=== PATIENT | female | born 1965 | race Caucasian/White ===

== ENCOUNTER 2024-03-02 17:02 | Inpatient (IN) | payer OTHER, SELFPAY ==
[2024-03-02 17:38] LABS: Arterial Blood Carboxyhemoglob 3.6 % (0-1.5); Blood Gas Oxyhemoglobin 88.6 % (94-97); Blood O2 Saturation 93.4 % (92-98.5)
[2024-03-02 17:39] LABS: Blood Gas THB 12.2 g/dl (12-18)
--- NOTE | 2024-03-02 17:42 | ER ---
Nurse's Notes [facility] Name: Ranjana Stallworth Age: 58 yrs Sex: Female : 1965 Arrival Date: 03/02/2024 Time: 17:[address] Private MD: Diagnosis: Tobacco abuse counseling;Tobacco use;COPD/ Chronic obstructive pulmonary disease with (acute) exacerbation;Hypoxemia;Chest pain, unspecified;Acute and chronic respiratory failure with hypercapnia;Pleural effusion, not elsewhere classified-LEFT;Elevated white blood cell count;Hypokalemia Presentation: 03/02 17:10 Chief complaint: Patient states: "I've had SOB for months that got worse today along mb9 with chest pain. My CP gets worse with inspiration". Coronavirus screen: Vaccine status: Patient reports receiving the 2nd dose of the covid vaccine. Ebola Screen: No symptoms or risks identified at this time. Initial Sepsis Screen: Does the patient meet any 2 criteria? No. Patient's initial sepsis screen is negative. Does the patient have a suspected source of infection? No. Patient's initial sepsis screen is negative. Risk Assessment: Do you want to hurt yourself or someone else? Patient reports no desire to harm self or others. Onset of symptoms was March 02, 2024. 17:10 Method Of Arrival: Ambulatory mb9 17:10 Acuity: AMPARO 2 mb9 Triage Assessment: 17:13 General: Appears uncomfortable, ill, Behavior is cooperative. Pain: Complains of pain mb9 in chest. Neuro: Level of Consciousness is awake, alert, obeys commands, Oriented to person, place, time, situation, Appropriate for age. Cardiovascular: Reports chest pain, shortness of breath. Respiratory: Reports shortness of breath at rest on exertion Breath sounds with wheezes bilaterally. Historical: - Allergies: 17:12 No Known Allergies; mb9 - Home Meds: 17:12 Albuterol Inhl [Active]; mb9 - PMHx: 17:12 Chronic obstructive lung disease; mb9 - PSHx: 17:12 None; mb9 - Immunization history:: Adult Immunizations up to date. - Infectious Disease History:: Denies. - Social history:: Smoking status: Patient reports the use of cigarette tobacco products, denies chronic smoking, but will smoke occasionally. - Family history:: not pertinent. Screenin:15 [facility] ED Fall Risk Assessment (Adult) History of falling in the last 3 months, mg7 including since admission No falls in past 3 months (0 pts). 17:15 Abuse screen: Denies threats or abuse. Denies injuries from another. Nutritional mg7 screening: No deficits noted. Tuberculosis screening: No symptoms or risk factors identified. Assessment: 17:49 General: Appears in no apparent distress. comfortable, Reports Symptoms have been going mg7 on for months and became worse today. Pain: Denies pain. Neuro: No deficits noted. Cardiovascular: Reports chest pain, lightheadedness, shortness of breath, Clubbing of nail beds is present Patient's skin is warm and dry. Pulses are all present. Edema is absent. Chest pain. Respiratory: Reports shortness of breath cough that is non-productive, persistent pain with cough Airway is patent Respiratory effort is even, unlabored, Respiratory pattern is regular, symmetrical. GI: No deficits noted. : No deficits noted. EENT: No deficits noted. 18:58 Reassessment: No changes from previously documented assessment. mg7 19:35 Reassessment: Patient appears in no apparent distress at this time. Patient and/or jb4 family updated on plan of care and expected duration. Pain level reassessed. Patient is alert, oriented x 3, equal unlabored respirations, skin warm/dry/pink. 20:00 Reassessment: Pt pending transfer to new room due to code jennings called on 4th floor. jb4 Vital Signs: 17:10 BP 166 / 87; Pulse 108; Resp 24; Temp 98; Pulse Ox 80% on R/A; Weight 90.72 kg; Height mb9 5 ft. 10 in. ; 17:13 Pulse Ox 92% on 2 lpm NC; mb9 17:15 BP 166 / 87; Pulse 103; Resp 20; mg7 18:30 BP 117 / 83; Pulse 80; Resp 16; Pulse Ox 94% on 2 lpm NC; mg7 18:37 BP 101 / 67; Pulse 85; Resp 18; Pulse Ox 94% on 2 lpm NC; ld1 19:35 BP 147 / 74; Pulse 79; Resp 20; Pulse Ox 92% on 2 lpm NC; jb4 17:10 Body Mass Index 28.70 (90.72 kg, 177.8 cm) mb9 ED Course: 17:03 Patient arrived in ED. mg5 17:06 Yg Grimes MD is Attending Physician. keyla 17:12 Triage completed. mb9 17:13 Arm band placed on. mb9 17:13 EKG done, by ED staff, reviewed by Yg Grimes MD. mb9 17:15 Patient has correct armband on for positive identification. Bed in low position. Call mg7 light in reach. Side rails up X 1. Client placed on continuous cardiac and pulse oximetry monitoring. NIBP monitoring applied. traffic monitor specialist on. 17:18 Beatrice Melendez, CONOR is Primary Nurse. mg7 17:40 Umesh Carmen MD is Hospitalizing Provider. [facility] 17:45 Radiology exam delayed due to patient is not appropriately dressed for the exam at this az time. 17:49 SARS RAPID Sent. mg7 17:49 Flu Sent. mg7 17:49 ABG Sent. mg7 17:49 Lactate w/ 2H reflex if indic. Sent. mg7 17:49 Blood Culture Adult (2) Sent. mg7 17:49 Lipase Sent. mg7 18:03 XRAY Chest (1 view) In Process Unspecified. EDMS 18:17 ARTERIAL BLOOD GAS Sent. mg7 Administered Medications: 18:16 Drug: Aspirin PO Chewable Tablet 81 mg PO once Route: PO; mg7 18:30 Drug: NS 0.9% IV 1000 ml IV at 125 ml/hr continuous Route: IV; Rate: 125 ml/hr; Site: mg7 right forearm; 18:30 Drug: MethylPrednisoLONE IVP 125 mg IVP once Route: IVP; Site: right antecubital; mg7 18:46 Drug: Ipratropium Inhalation Aerosol 0.5 mg Inhalation once Route: Inhalation; mg7 18:46 Drug: levofloxacin IVPB 500 mg 100 ml IVPB once over 60 mins Volume: 100 ml; Route: mg7 IVPB; Infused Over: 60 mins; Site: right forearm; 19:08 Not Given (Patient Refused): [id number] mg Sub-Q once mg7 19:21 Drug: Potassium PO Effervescent Tablet 50 mEq PO once; dissolve in 4 ounces of water or jb4 juice Route: PO; 19:43 Drug: Levalbuterol Inhalation 3.75 mg Inhalation once Route: Inhalation; jb4 21:13 Drug: Piperacillin-Tazobactam IVPB 3.375 grams IVPB once over 60 mins; (mix in NS 100 jb4 mL) Route: IVPB; Infused Over: 60 mins; Site: right antecubital; Outcome: 17:42 Decision to Hospitalize by Provider. keyla 21:43 Patient left the ED. jb4 Signatures: Dispatcher [employer] EDYg Sandhu MD MD cha Bryson, James RN RN jb4 Macie Cespedes Lauren RN RN [id number] Juju Griffin RN RN mb9 Pilar Martins5 Beatrice Melendez RN RN mg7
--- NOTE | 2024-03-02 17:42 | EDPHYS ---
Physician Documentation [facility] Name: Ranjana Stallworth Age: 58 yrs Sex: Female : 1965 Arrival Date: 03/02/2024 Time: 17:[address] Private MD: ED Physician Yg Grimes HPI: 03/02 17:35 This 58 yrs old Female presents to ER via Ambulatory with complaints of Chest keyla Pain, Breathing Difficulty. 17:35 The patient or guardian reports chest pain that is located primarily in the substernal keyla area, anterior chest wall. Onset: 3 day(s) ago. Historical: - Allergies: 17:12 No Known Allergies; mb9 - Home Meds: 17:12 Albuterol Inhl [Active]; mb9 - PMHx: 17:12 Chronic obstructive lung disease; mb9 - PSHx: 17:12 None; mb9 - Immunization history:: Adult Immunizations up to date. - Infectious Disease History:: Denies. - Social history:: Smoking status: Patient reports the use of cigarette tobacco products, denies chronic smoking, but will smoke occasionally. - Family history:: not pertinent. ROS: 17:36 Constitutional: Negative for fever, chills, and weight loss, Eyes: Negative for injury, ekyla pain, redness, and discharge, ENT: Negative for injury, pain, and discharge, Neck: Negative for injury, pain, and swelling, Cardiovascular: Negative for chest pain, palpitations, and edema, Abdomen/GI: Negative for abdominal pain, nausea, vomiting, diarrhea, and constipation, Back: Negative for injury and pain, : Negative for injury, bleeding, discharge, and swelling, MS/Extremity: Negative for injury and deformity, Skin: Negative for injury, rash, and discoloration, Neuro: Negative for headache, weakness, numbness, tingling, and seizure, Psych: Negative for depression, anxiety, suicide ideation, homicidal ideation, and hallucinations, Allergy/Immunology: Negative for hives, rash, and allergies, Endocrine: Negative for neck swelling, polydipsia, polyuria, polyphagia, and marked weight changes, Hematologic/Lymphatic: Negative for swollen nodes, abnormal bleeding, and unusual bruising, 17:36 Respiratory: Positive for cough, shortness of breath, wheezing, inspiratory, expiratory, Exam: 17:36 Constitutional: This is a well developed, well nourished patient who is awake, alert, keyla and in no acute distress. Head/Face: Normocephalic, atraumatic. Eyes: Pupils equal round and reactive to light, extra-ocular motions intact. Lids and lashes normal. Conjunctiva and sclera are non-icteric and not injected. Cornea within normal limits. Periorbital areas with no swelling, redness, or edema. ENT: Nares patent. No nasal discharge, no septal abnormalities noted. Tympanic membranes are normal and external auditory canals are clear. Oropharynx with no redness, swelling, or masses, exudates, or evidence of obstruction, uvula midline. Mucous membranes moist. Neck: Trachea midline, no thyromegaly or masses palpated, and no cervical lymphadenopathy. Supple, full range of motion without nuchal rigidity, or vertebral point tenderness. No Meningismus. Chest/axilla: Normal chest wall appearance and motion. Nontender with no deformity. No lesions are appreciated. Cardiovascular: Regular rate and rhythm with a normal S1 and S2. No gallops, murmurs, or rubs. Normal PMI, no JVD. No pulse deficits. Respiratory: Lungs have equal breath sounds bilaterally, clear to auscultation and percussion. No rales, rhonchi or wheezes noted. No increased work of breathing, no retractions or nasal flaring. Abdomen/GI: Soft, non-tender, with normal bowel sounds. No distension or tympany. No guarding or rebound. No evidence of tenderness throughout. Back: No spinal tenderness. No costovertebral tenderness. Full range of motion. Female : Normal external genitalia. Skin: Warm, dry with normal turgor. Normal color with no rashes, no lesions, and no evidence of cellulitis. MS/ Extremity: Pulses equal, no cyanosis. Neurovascular intact. Full, normal range of motion. Neuro: Awake and alert, GCS 15, oriented to person, place, time, and situation. Cranial nerves II-XII grossly intact. Motor strength 5/5 in all extremities. Sensory grossly intact. Cerebellar exam normal. Normal gait. Psych: Awake, alert, with orientation to person, place and time. Behavior, mood, and affect are within normal limits. 17:36 ECG was reviewed by the Attending Physician. Vital Signs: 17:10 BP 166 / 87; Pulse 108; Resp 24; Temp 98; Pulse Ox 80% on R/A; Weight 90.72 kg; Height mb9 5 ft. 10 in. ; 17:13 Pulse Ox 92% on 2 lpm NC; mb9 17:15 BP 166 / 87; Pulse 103; Resp 20; mg7 18:30 BP 117 / 83; Pulse 80; Resp 16; Pulse Ox 94% on 2 lpm NC; mg7 18:37 BP 101 / 67; Pulse 85; Resp 18; Pulse Ox 94% on 2 lpm NC; ld1 19:35 BP 147 / 74; Pulse 79; Resp 20; Pulse Ox 92% on 2 lpm NC; jb4 17:10 Body Mass Index 28.70 (90.72 kg, 177.8 cm) mb9 MDM: 17:06 Patient medically screened. keyla 17:38 Antibiotic administration: Levaquin given. HEART Score: History: Slightly Suspicious keyla (0), ECG: Significant ST-deviation (2), Age: > 45 and < 65 years (1), Risk Factors: > or = 3 Risk factors for atherosclerotic disease (2), [Active Smoker] [+ Family HX] [Obesity] Troponin: < or = 1 x Normal Limit (0). The patient was given aspirin in the Emergency Department. Differential Diagnosis: Obstructed Airway Bronchitis Influenza Upper Respiratory Infection Sinusitis Pharyngitis Asthma Exacerbation Viral Syndrome Pneumonia Tracheal Injury. NEENA Risk Score: TOTAL SCORE = 0. Immunization status: Influenza vaccine: within last 5 years. Data reviewed: vital signs, nurses notes, lab test result(s), EKG, radiologic studies, plain films. Consideration of Admission/Observation Patient was admitted/placed on observation. Escalation of care including admission/observation considered. I considered the following discharge prescriptions or medication management in the emergency department Medications were administered in the Emergency Department. See MAR. Independent interpretation of the following test(s) in the Emergency Department EKG: See my EKG interpretation above. Test considered but Not performed: CT: ct chest. Historians other than the Patient: pt well informed. Care significantly affected by the following chronic conditions: Chronic Obstructive Pulmonary Disease, Obesity. Counseling: I had a detailed discussion with the patient and/or guardian regarding the historical points, exam findings, and any diagnostic results supporting the discharge/admit diagnosis, the presence of at least one elevated blood pressure reading (>120/80) during this emergency department visit, lab results, the need for further work-up and treatment in the hospital. 03/02 17:15 Order name: Basic Metabolic Panel; Complete Time: 18:51 keyla 03/02 17:15 Order name: CBC with Diff; Complete Time: 18:20 keyla 03/02 17:15 Order name: LFT's; Complete Time: 18:51 keyla 03/02 17:15 Order name: Magnesium; Complete Time: 18:51 keyla 03/02 17:15 Order name: NT PRO-BNP; Complete Time: 18:51 keyla 03/02 17:15 Order name: PT-INR; Complete Time: 18:20 keyla 03/02 17:15 Order name: Troponin HS; Complete Time: 18:51 keyla 03/02 17:15 Order name: Blood Culture Adult (2) keyla 03/02 17:15 Order name: Lipase; Complete Time: 18:51 keyla 03/02 17:15 Order name: Urinalysis w/ reflexes keyla 03/02 17:15 Order name: Lactate w/ 2H reflex if indic.; Complete Time: 18:20 keyla 03/02 17:15 Order name: ABG keyla 03/02 17:15 Order name: Flu; Complete Time: 18:51 keyla 03/02 17:15 Order name: SARS RAPID; Complete Time: 18:20 keyla 03/02 17:39 Order name: ABG Arterial Blood Gas; Complete Time: 18:20 EDMS 03/02 18:39 Order name: Urinalysis w/ reflexes EDMS 03/02 18:39 Order name: CBC with Automated Diff EDMS 03/02 18:39 Order name: CBC with Automated Diff EDMS 03/02 18:39 Order name: Comprehensive Metabolic Panel EDMS 03/02 18:39 Order name: Comprehensive Metabolic Panel EDMS 03/02 18:39 Order name: Troponin High Sensitivity EDMS 03/02 18:39 Order name: Troponin High Sensitivity EDMS 03/02 18:39 Order name: Troponin High Sensitivity EDMS 03/02 18:39 Order name: Troponin High Sensitivity EDMS 03/02 17:15 Order name: XRAY Chest (1 view); Complete Time: 18:51 keyla 03/02 17:42 Order name: ARTERIAL BLOOD GAS EDMS 03/02 17:56 Order name: CT Chest For PE Angio keyla 03/02 19:45 Order name: CT; Complete Time: 20:14 EDDE 03/02 17:15 Order name: Cardiac monitoring; Complete Time: 17:19 [facility] 03/02 17:15 Order name: EKG - Nurse/Tech; Complete Time: 17:19 keyla 03/02 17:15 Order name: IV Saline Lock; Complete Time: 17:19 keyla 03/02 17:15 Order name: Labs collected and sent; Complete Time: 17:19 [facility] 03/02 17:15 Order name: O2 Per Protocol; Complete Time: 17:19 [facility] 03/02 17:15 Order name: O2 Sat Monitoring; Complete Time: 17:19 [facility] 03/02 18:53 Order name: PO challenge: JUICE; Complete Time: 19:21 [facility] EC:36 Rate is 90 beats/min. Rhythm is regular. QRS [place] is Normal. [place] interval is normal. QRS keyla interval is normal. QT interval is normal. No Q waves. T waves are Normal. No ST changes noted. Clinical impression: Normal ECG, NSR w/ Non-specific ST/T Changes, and No evidence of ischemia. Interpreted by me. Reviewed by me. Administered Medications: 18:16 Drug: Aspirin PO Chewable Tablet 81 mg PO once Route: PO; mg7 18:30 Drug: NS 0.9% IV 1000 ml IV at 125 ml/hr continuous Route: IV; Rate: 125 ml/hr; Site: mg7 right forearm; 18:30 Drug: MethylPrednisoLONE IVP 125 mg IVP once Route: IVP; Site: right antecubital; mg7 18:46 Drug: Ipratropium Inhalation Aerosol 0.5 mg Inhalation once Route: Inhalation; mg7 18:46 Drug: levofloxacin IVPB 500 mg 100 ml IVPB once over 60 mins Volume: 100 ml; Route: mg7 IVPB; Infused Over: 60 mins; Site: right forearm; 19:08 Not Given (Patient Refused): [id number] mg Sub-Q once mg7 19:21 Drug: Potassium PO Effervescent Tablet 50 mEq PO once; dissolve in 4 ounces of water or jb4 juice Route: PO; 19:43 Drug: Levalbuterol Inhalation 3.75 mg Inhalation once Route: Inhalation; jb4 21:13 Drug: Piperacillin-Tazobactam IVPB 3.375 grams IVPB once over 60 mins; (mix in NS 100 jb4 mL) Route: IVPB; Infused Over: 60 mins; Site: right antecubital; Disposition Summary: 03/02/24 17:42 Hospitalization Ordered Notes: Provider: Umesh Carmen cha Condition: Fair keyla Problem: new keyla Symptoms: have improved keyla Bed/Room Type: Standard keyla Hospitalization Status: Inpatient Admission(03/02/24 17:57) keyla Location: Telemetry/MedSurg (Inpatient)(03/02/24 17:57) keyla Room Assignment: 428(03/02/24 19:00) rv1 Diagnosis - Tobacco abuse counseling keyla - Tobacco use keyla - COPD/ Chronic obstructive pulmonary disease with (acute) exacerbation keyla - Hypoxemia keyla - Chest pain, unspecified keyla - Acute and chronic respiratory failure with hypercapnia keyla - Pleural effusion, not elsewhere classified - LEFT keyla - Elevated white blood cell count keyla - Hypokalemia keyla Forms: - Medication Reconciliation Form keyla - SBAR form keyla - Leadership Thank You Letter keyla Signatures: Dispatcher [employer] EDMS Yg Grimes MD MD cha Bryson, James, RN RN jb4 Kim Tyler RN RN ld1 Juju Griffin, RN RN mb9 Gianna Poole rv1 Beatrice Melendez, RN RN mg7 Corrections: (The following items were deleted from the chart) 17:16 17:16 BASIC METABOLIC PANEL+C.LAB.BRZ ordered. EDMS EDMS 17:16 17:16 CBC+H.LAB.BRZ ordered. EDMS EDMS 17:16 17:16 HEPATIC FUNCTION+C.LAB.BRZ ordered. EDMS EDMS 17:16 17:16 MAGNESIUM+C.LAB.BRZ ordered. EDMS EDMS 17:16 17:16 PROBNP+C.LAB.BRZ ordered. EDMS EDMS 17:16 17:16 PROTIME (+INR)+COAG.LAB.BRZ ordered. EDMS EDMS 17:16 17:16 Troponin High Sensitivity+C.LAB.BRZ ordered. EDMS EDMS 17:16 17:16 BLOOD CULTURE*+BA.LAB.BRZ ordered. EDMS EDMS 17:16 17:16 LIPASE+C.LAB.BRZ ordered. EDMS EDMS 17:16 17:16 Urinalysis+U.LAB.BRZ ordered. EDMS EDMS 17:16 17:16 LACTATE+C.LAB.BRZ ordered. EDMS EDMS 17:16 17:16 Influenza Screen (A \T\ B)+BA.LAB.BRZ ordered. EDMS EDMS 17:16 17:16 SARS-COV-2 Antigen Rapid+I.LAB.BRZ ordered. EDMS EDMS 17:16 17:16 Arterial Blood Gas+RC.LAB.BRZ ordered. EDMS EDMS 17:57 17:42 Observation [facility] 17:57 17:42 Telemetry/MedSurg (observation) [facility] 17:57 17:42 [facility] 19:00 17:57 [facility] rv1
[2024-03-02 17:55] LABS: Absolute Basophils 0.1 K/uL (0-0.5); Absolute Eosinophils 0.1 K/uL (0-0.5); Absolute Lymphocytes (CBC) 1.4 K/uL (0.7-4.9); Absolute Monocytes 1.3 K/uL (0.1-1.3); Absolute Neutrophil 13.7 K/uL (1.8-8.0); Basophils % 0.3 % (0-1.3); Eosinophils % 0.9 % (0-4.4); Hematocrit 35.7 % (36.0-45.0); Hemoglobin 11.9 g/dL (12.0-15.0); Lymphocytes % 8.2 % (15.3-44.8); MCH 28.9 pg (27.0-35.0); MCHC 33.3 g/dL (32.0-36.0); MCV 86.9 fL (80-100); Neutrophils % 82.6 % (41.7-73.7); Platelets 685 thou/uL (152-406); RBC Red Blood Cell Count 4.11 M/uL (3.86-4.86); Red Cell Distribution Width 13.5 % (12.1-15.2)
[2024-03-02 17:58] LABS: PT Prothrombin Time 13.6 SECONDS (9.5-12.5); Protime INR 1.24
[2024-03-02] MEDS ORDERED: IPRATROPIUM BROM 0.5MG/2.5ML ONE (18:09)
[2024-03-02 18:10] LABS: SARS-CoV-2 Antigen CONTROL BLUE LINE VIS/BG OK; SARS-CoV-2 Antigen Rapid Res Negative (Negative)
[2024-03-02] MEDS ORDERED: METHYLPREDNISOLONE 125 MG INJ ONE (18:10)
[2024-03-02] MEDS ORDERED: ASPIRIN 81 MG CHEWABLE TABLET ONE (18:10)
[2024-03-02] MEDS ORDERED: Levofloxacin500mg IV 500 MG/100 ML BAG IV ONE (18:10)
[2024-03-02] MEDS ORDERED: NA CHLORIDE 0.9% 1,000 ML ONE (18:11)
[2024-03-02] MEDS ORDERED: ENOXAPARIN 40 MG/0.4 ML SQ ONE (18:11)
--- NOTE | 2024-03-02 18:16 | P.HP ---
Certification for Inpatient Patient admitted to: Observation With expected LOS: <2 Midnights Practitioner: I am a practitioner with admitting privileges, knowledge of patient current condition, hospital course, and medical plan of care. Services: Services provided to patient in accordance with Admission requirements found in Title 42 Section 412.3 of the Code of Federal Regulations Patient History Date of Service: 03/02/24 Reason for admission: Chest Pain, shortness of breath History of Present Illness: 58 yo female with past medical history of COPD who was brought to ER with shortness of breath which has been worsening over the last few days . Today shortness of breath increased to the extent that getting short winded even with minimal exertion and was brought to ER. Denies any fever or chills. Denies any nausea vomiting or Diarrhea. Patient complains of chest discomfort denies any pain. Complains of tightness in the chest nonradiating, not associated with lan phoresis. No sick contacts Patient was assessed in the ER and was admitted for further management of COPD exacerbation and chest discomfort Home medications list reviewed: Yes - Past Medical/Surgical History Past Medical History: Reviewed- Non-Contributory -: COPD Past Surgical History: Reviewed- Non-Contributory - Family History Family History: Reviewed- Non-Contributory - Social History Smoking Status: Current some day smoker Review of Systems 10-point ROS is otherwise unremarkable Physical Examination - Vital Signs Temperature: 98.4 F Blood Pressure: 132/76 Pulse: 78 Respirations: 18 Pulse Ox (%): 94 - Physical Exam General: Alert, Oriented x3, Cooperative, Mild distress HEENT: Atraumatic, Normocephalic, PERRLA Neck: Supple Respiratory: Diminished, Crackles/rales, Expiratory wheezes Cardiovascular: No edema, Regular rate/rhythm, Normal S1 S2 Capillary refill: <2 Seconds Gastrointestinal: Soft and benign, Non-distended, W/out hepatosplenomegaly Musculoskeletal: No clubbing, No swelling Integumentary: No rashes, No breakdown Neurological: Normal speech, Normal strength at 5/5 x4 extr, Cranial nerves 3-12 intact, Normal reflexes 2+, Normal affect Lymphatics: No axilla or inguinal lymphadenopathy - Studies Laboratory Data (last 24 hrs) 03/02/24 03/02/24 17:15 17:15 WBC 16.60 H Hgb 11.9 L Hct 35.7 L Plt Count 685 H PT 13.6 H INR 1.24 Assessment and Plan - Problems (Diagnosis) (1) COPD exacerbation Current Visit: Yes Status: Acute Plan: COPD exacerbation Monitor closely on telemetry Started on bronchodilators Oxygen supplementation Steroids added ABG findings noted Chest x-ray findings noted Pulmonology consult if not better in the a.m. (2) Acute respiratory failure with hypoxia and hypercapnia Current Visit: Yes Status: Acute Plan: Oxygen supplementation Will try to wean down oxygen requirement Started on bronchodilators and steroids (3) Bronchitis Current Visit: Yes Status: Acute Plan: Started on antibiotics empirically Will obtain cultures Change antibiotic as per sensitivity (4) Chest pain Current Visit: Yes Status: Acute Plan: Monitor closely on telemetry Trend cardiac enzymes Started on aspirin and statin Cardiology consult if cardiac enzymes are positive (5) Hypokalemia Current Visit: Yes Status: Acute Plan: Will replace potassium Monitor under telemetry Electrolytes monitor and replace accordingly Discharge Plan: Home Plan to discharge in: 48 Hours - Advance Directives Does patient have a Living Will: No Does patient have a Durable POA for Healthcare: No - Code Status/Comfort Care Code Status: Full Code Time Spent Managing Pts Care (In Minutes): 58
[2024-03-02 18:20] LABS: AST/SGOT 8 U/L (15-37); Albumin 2.6 g/dL (3.4-5.0); Albumin/Globulin Ratio 0.5 (1.1-1.8); Alkaline Phosphatase 103 U/L (45-117); Anion Gap 6.9 mEq/L (5.0-15.0); BUN Blood Urea Nitrogen 10 mg/dL (7-18); Bicarbonate 32 mEq/L (21-32); Bilirubin Direct 0.1 mg/dL (0-0.2); Bilirubin Indirect, Calculated 0.2 mg/dL (0.2-0.8); Bilirubin Total 0.3 mg/dL (0.2-1.0); Globulin 5.3 g/dL (2.3-3.5); Glomerular Filtration Rate 104 ml/min (=/>90); Glucose Level 118 mg/dL (74-106); Lipase 10 U/L (13-75); Magnesium 2.1 mg/dL (1.6-2.4); NT PRO-BNP 126 pg/mL (<125); Potassium 2.9 mEq/L (3.5-5.1); Protein, Total 7.9 g/dL (6.4-8.2); Sodium Level 136 mEq/L (136-145); Troponin High Sensitivity 3.3 pg/mL (<58.9)
[2024-03-02 18:23] LABS: ALT/SGPT < 10 U/L (13-56)
--- NOTE | 2024-03-02 18:31 | RAD REPORT ---
EXAM DESCRIPTION: Stephanie Single View03/02/2024 6:01 pm CLINICAL HISTORY: ABDOMINAL DISTENTION COMPARISON: No comparisons TECHNIQUE: Portable AP view of the chest. FINDINGS: Moderate to large layering left pleural effusion with underlying airspace opacification. R ight lung is clear. No pneumothorax. The cardiomediastinal contours are unremarkable. IMPRESSION: Left layering pleural effusion with underlying atelectasis versus pneumonia.
[2024-03-02] MEDS ORDERED: ACETAMINOPHEN 500 MG TAB PO PRN (18:34)
[2024-03-02] MEDS ORDERED: ALBUTEROL 2.5 MG/3 ML NEB SOL NEB PRN (18:34)
[2024-03-02] MEDS ORDERED: ONDANSETRON 4 MG/2 ML VIAL IV PRN (18:34)
[2024-03-02] MEDS: IPRATROPIUM BROM 0.5MG/2.5ML NEB SCH (19:00)
[2024-03-02] MEDS ORDERED: POTASSIUM 25 MEQ EFFERV TAB ONE (19:14)
[2024-03-02] MEDS ORDERED: LEVALBUTEROL 1.25 MG/3 ML NEB ONE (19:39)
--- NOTE | 2024-03-02 19:44 | RAD REPORT ---
EXAM DESCRIPTION: CT - Chest For Pe Angio - 03/02/2024 7:12 pm CLINICAL HISTORY: Chest pain;Dyspnea COMPARISON: Chest radiograph of the same day TECHNIQUE: Thin axial CT images of the chest were obtained following administration of 100 mL Isovue 370 IV contrast. Multiplanar reconstructions, and maximum intensity projection reconstructions were generated and reviewed. Exam utilizes a protocol for optimal evaluation of pulmonary arterial tree. All CT scans are performed using dose optimization technique as appropriate and may include automated exposure control or mA/KV adjustment according to patient size. FINDINGS: Pulmonary arteries are normal. No emboli or other suspicious finding. No acute or signific ant aorta findings. Moderate layering left pleural effusion. Opacification of the left main bronchus with some 8 segments to the upper segments of the left upper lobe. The left lower lobe is completely opacified, without s ignificant volume loss, with opacification of its leading bronchial tree. The parenchyma throughout t he left lower lobe is hypoenhancing with limited air bronchogram, with the exception of a patchy area of relative hyperenhancement at the base anteriorly. No pleural effusion or airspace opacities on th e right. No pneumothorax. No abnormal mediastinal or hilar masses or lymphadenopathy seen. No chest wall mass or abnormal axill iary lymphadenopathy. Left adrenal 3.3 cm mass, with internal density less than 10 Hounsfield units, favoring a benign zacarias cash, not well characterized. IMPRESSION: No evidence of acute central pulmonary emboli. Airspace opacification of the left lower lobe and lower segments of the left upper lobe, with opacifi cation of the leading bronchitis. Findings favor an infectious or inflammatory process such as pneumo martinez, although an obstructing endobronchial is not excluded. Moderate layering left pleural effusion.
[2024-03-02] MEDS ORDERED: NA CHLORIDE 0.9% 100 ML ONE (20:34)
[2024-03-02] MEDS ORDERED: PIPERACIL/TAZO 3.375 GM VIAL IV ONE (20:35)
[2024-03-02] MEDS: ENOXAPARIN 40 MG/0.4 ML SQ SCH (21:00)
[2024-03-02] MEDS: ATORVASTATIN 40 MG TAB PO SCH (21:00)
[2024-03-02 22:39] LABS: Urine Bacteria None Seen /HPF (<20); Urine Bilirubin NEGATIVE (Negative); Urine Blood Negative (Negative); Urine Clarity Clear (Clear); Urine Color Light-Yellow (Yellow); Urine Culture Reflex Order NOT NEEDED; Urine Glucose NEGATIVE (Negative); Urine Ketones NEGATIVE (Negative); Urine Microscopic Reflex YN ORDER UMIC; Urine Mucus Slight /HPF (None Seen); Urine Nitrite NEGATIVE (Negative); Urine Protein TRACE (Negative); Urine RBC <5 /HPF (None Seen); Urine Urobilinogen Normal (Normal); Urine WBC <5 /HPF (<5); Urine pH 6.5 (5.0-7.0)
[2024-03-02 22:40] LABS: Specific Gravity > 1.030 (1.005-1.030)
[2024-03-02 23:12] VITALS: BMI 34.7
[2024-03-03] MEDS: METHYLPREDNISOLONE 40 MG INJ IV SCH (01:35)
[2024-03-03] MEDS: IBUPROFEN 400 MG TAB PO ONE (01:35)
[2024-03-03 04:45] LABS: Absolute Basophils 0.1 K/uL (0-0.5); Absolute Lymphocytes (CBC) 0.4 K/uL (0.7-4.9); Absolute Monocytes 0.1 K/uL (0.1-1.3); Absolute Neutrophil 12.6 K/uL (1.8-8.0); Basophils % 0.9 % (0-1.3); Hematocrit 34.5 % (36.0-45.0); Hemoglobin 10.9 g/dL (12.0-15.0); MCH 27.8 pg (27.0-35.0); MCHC 31.6 g/dL (32.0-36.0); MCV 88.1 fL (80-100); MPV 8.3 fL (7.6-11.3); Monocytes % 0.9 % (3.3-12.3); Neutrophils % 95.2 % (41.7-73.7); Platelets 666 thou/uL (152-406); RBC Red Blood Cell Count 3.92 M/uL (3.86-4.86); Red Cell Distribution Width 13.6 % (12.1-15.2)
[2024-03-03 05:14] LABS: Albumin 2.4 g/dL (3.4-5.0); Albumin/Globulin Ratio 0.5 (1.1-1.8); Anion Gap 7.9 mEq/L (5.0-15.0); Bilirubin Total 0.3 mg/dL (0.2-1.0); Globulin 5.1 g/dL (2.3-3.5); Potassium 3.9 mEq/L (3.5-5.1); Protein, Total 7.5 g/dL (6.4-8.2)
[2024-03-03 05:20] LABS: Band Neutrophils 6 % (0-1); Blood Morphology Comment NOT SEEN (NOT SEEN); Differential Total Cells Count 100; Monocytes 1 % (0-10); Platelet Estimate ADEQ; Reactive Lymphocytes 2 %; Segmented Neutrophils 90 % (40-80)
[2024-03-03 05:31] LABS: Lymphocytes 0 % (15-42)
--- NOTE | 2024-03-03 07:47 | P.PN ---
Subjective Date of Service: 03/04/24 Chief Complaint: Chest Pain, shortness of breath Admitted for COPD exacerbation, reports productive cough, shortness of breath worse with exertion, no reported fever - Physical Exam General: Alert, Oriented x3, Cooperative, Mild distress HEENT: Atraumatic, Normocephalic, PERRLA Neck: Supple Respiratory: Diminished, Crackles/rales, Expiratory wheezes Cardiovascular: No edema, Regular rate/rhythm, Normal S1 S2 Capillary refill: <2 Seconds Gastrointestinal: Soft and benign, Non-distended, W/out hepatosplenomegaly Musculoskeletal: No clubbing, No swelling Integumentary: No rashes, No breakdown Neurological: Normal speech, Normal strength at 5/5 x4 extr, Cranial nerves 3-12 intact, Normal reflexes 2+, Normal affect <Corin Chino - Last Filed: 03/04/24 08:59> Date of Service: 03/03/24 <Lio Barnett - Last Filed: 03/06/24 09:31> Review of Systems Per HPI <Corin Chino - Last Filed: 03/04/24 08:59> Physical Examination - Vital Signs Temperature: 97.2 F Blood Pressure: 116/75 Pulse: 71 Respirations: 20 Pulse Ox (%): 91 - Studies Laboratory Data (last 24 hrs) 03/02/24 03/02/24 03/02/24 17:15 17:15 17:15 WBC 16.60 H Hgb 11.9 L Hct 35.7 L Plt Count 685 H PT 13.6 H INR 1.24 Sodium 136 Potassium 2.9 L BUN 10 Creatinine 0.56 Glucose 118 H Magnesium 2.1 Total Bilirubin 0.3 AST 8 L ALT < 10 L Alkaline Phosphatase 103 Lipase 10 L Microbiology Data (last 24 hrs): 03/02/24 17:26 Nasopharnyx Influenza Type A Antigen Screen - Final 03/02/24 17:26 Nasopharnyx Influenza Type B Antigen Screen - Final <Corin Chino - Last Filed: 03/04/24 08:59> Assessment And Plan - Plan Assessment and Plan (1) COPD exacerbation Leukocytosis secondary to steroid use improving Current Visit: Yes Status: Acute COPD exacerbation Monitor closely on telemetry Started on bronchodilators Oxygen supplementation Steroids added ABG findings noted Chest x-ray findings noted Pulmonology consult if not better in the a.m. Trend WBC 16.6, 13.20 (2) Acute respiratory failure with hypoxia and hypercapnia Current Visit: Yes Status: Acute Oxygen supplementation Will try to wean down oxygen requirement Started on bronchodilators and steroids, IV azithromycin, ceftriaxone (3) Bronchitis Current Visit: Yes Status: Acute Started on antibiotics empirically Will obtain cultures Change antibiotic as per sensitivity (4) Chest pain Current Visit: Yes Status: Acute Monitor closely on telemetry Trend cardiac enzymes Started on aspirin and statin Cardiology consult if cardiac enzymes are positive (5) Hypokalemia Current Visit: Yes Status: Acute 2.9 repeat 3.9 Will replace potassium Monitor under telemetry Electrolytes monitor and replace accordingly Full code Diet cardiac DVT Lovenox Disposition Discharge Plan: Home - Code Status/Comfort Care Code Status: Full Code Critical Care: No Time Spent Managing PTS Care (In Minutes): 35 <Corin Chino - Last Filed: 03/04/24 08:59> Date of Service: 03/03/24 Patient chart was reviewed and patient was seen and examined. Agree with the a ssessment and plan. Most of the MDM was done by myself and plan of care was discussed with ASHLEY as well as the patient. Plan to discharge home with DC planning for 24-48hrs as long as patient continues to improve. <Lio Barnett - Last Filed: 03/06/24 09:31>
[2024-03-03] MEDS: POTASSIUM CL SA 10 MEQ TAB PO ONE (08:54)
[2024-03-03] MEDS: CEFTRIAXONE 1,000 MG in NA CHLORIDE 0.9% 50 ML IVPB SCH (08:54)
[2024-03-03] MEDS: ASPIRIN EC 81 MG TAB PO SCH (08:54)
[2024-03-03] MEDS: AZITHROMYCIN IV 500 MG in NA CHLORIDE 0.9% 250 ML IVPB SCH (08:57)
[2024-03-03] MEDS: IBUPROFEN 400 MG TAB PO PRN (10:38)
--- NOTE | 2024-03-03 15:40 | EKG ---
Test Date: 2024-03-02 Test Time: 17:11:20 Manual Winder: ALP MEASUREMENT RESULTS: Intervals: Rate: 90 TX: 152 QRSD: 84 QT: 350 QTc: 428 [place]: P: 51 TX: 152 QRS: 25 T: 50 INTERPRETIVE STATEMENTS: Normal sinus rhythm Low voltage QRS Borderline ECG No previous ECG available for comparison Electronically Signed On 03-03-24 15:39:16 CDT by Richie Bentley
[2024-03-04 07:35] LABS: Anion Gap 6.7 mEq/L (5.0-15.0); Potassium 4.7 mEq/L (3.5-5.1)
--- NOTE | 2024-03-04 09:03 | P.DS ---
Admission Date: 03/03/24 Discharge Date: 03/05/24 Reason for Admission: Chest Pain, shortness of breath Brief History of Present Illness: 58 yo female with past medical history of COPD who was brought to ER with shortness of breath which has been worsening over the last few days . Today shortness of breath increased to the extent that getting short winded even with minimal exertion and was brought to ER. Denies any fever or chills. Denies any nausea vomiting or Diarrhea. Patient complains of chest discomfort denies any pain. Complains of tightness in the chest nonradiating, not associated with diaphoresis. No sick contacts, Patient was assessed in the ER and was admitted for further management of COPD exacerbation and chest discomfort - Physical Exam General: Alert, Oriented x3, Cooperative, Mild distress HEENT: Atraumatic, Normocephalic, PERRLA Neck: Supple Respiratory: Productive cough, equal unlabored respiratory Cardiovascular: No edema, Regular rate/rhythm, Normal S1 S2 Capillary refill: <2 Seconds Gastrointestinal: Soft and benign, Non-distended, W/out hepatosplenomegaly Musculoskeletal: No clubbing, No swelling Integumentary: No rashes, No breakdown Neurological: Normal speech, Normal strength at 5/5 x4 extr, Cranial nerves 3-12 intact, Normal reflexes 2+, Normal affect Lymphatics: No axilla or inguinal lymphadenopathy Hospital Course: 58 year-old female patient presented with shortness of breath was noted to have COPD exacerbation. Condition improved with steroids, nebulizers, IV antibiotics. Patient tolerating diet, stable for discharge to home with follow-up appointment with primary care physician. Follow-up with pulmonary after discharge PROBLEM: COPD exacerbation improved with nebulizer steroids, Bronchitis, Home O2 ordered follow-up with pulmonary after discharge Refill inhalers,, discharged home on p.o. steroids, antibiotics. Follow-up with pulmonary after Continue home medicines as previously prescribed GOAL: Clear understanding of disease process INSTRUCTIONS: Physician Discharge Instructions: -DC IV and DC home -Follow-up with PCP in 1 to 2 weeks -Please call Dr. Barnett at [phone] if any questions regarding hospital stay -Please call nursing station at [phone] if any nursing or medication questions -Return to the emergency room if symptoms worsen Diet: ADA, low sodium Activity: Fall precautions <Corin Chino - Last Filed: 03/05/24 07:59> Admission Date: 03/03/24 Discharge Date: 03/05/24 Hospital Course: Patient has done well during hospital stay. Patient's clinical symptoms have improved. Patient will continue with medical therapy as an outpatient. Patient will follow-up with consultants and PCP as an outpatient in 1 to 2 weeks. Patient chart was reviewed and patient was seen and examined. ASHLEY DC assessment and plan has been reviewed. Patient presented with acute COPD exacerbation. Most of the MDM was done by myself and plan of care was discussed with ASHLEY as well as the patient. Plan to discharge home with outpatient follow-up <Lio Barnett - Last Filed: 03/06/24 09:34> Disposition: ROUTINE DISCHARGE Discharge Condition: GOOD Vital Signs/Physical Exam: Temp Pulse Resp BP Pulse Ox 97.2 F 71 20 116/75 91 03/04/24 08:59 03/04/24 08:59 03/04/24 08:59 03/04/24 08:59 03/04/24 08:59 Laboratory Data at Discharge: WBC 13.20 thou/uL (4.3-10.9) H 03/03/24 04:13 Hgb 10.9 g/dL (12.0-15.0) L D 03/03/24 04:13 Hct 34.5 % (36.0-45.0) L 03/03/24 04:13 Plt Count 666 thou/uL (152-406) H 03/03/24 04:13 PT 13.6 SECONDS (9.5-12.5) H 03/02/24 17:15 INR 1.24 03/02/24 17:15 Sodium 139 mEq/L (136-145) 03/04/24 06:58 Potassium 4.7 mEq/L (3.5-5.1) D 03/04/24 06:58 BUN 22 mg/dL (7-18) H 03/04/24 06:58 Creatinine 0.52 mg/dL (0.55-1.02) L 03/04/24 06:58 Glucose 169 mg/dL (74-106) H 03/04/24 06:58 Magnesium 2.1 mg/dL (1.6-2.4) 03/02/24 17:15 Total Bilirubin 0.3 mg/dL (0.2-1.0) 03/03/24 04:13 AST 6 U/L (15-37) L 03/03/24 04:13 ALT 13 U/L (13-56) 03/03/24 04:13 Alkaline Phosphatase 100 U/L (45-117) 03/03/24 04:13 Lipase 10 U/L (13-75) L 03/02/24 17:15 <Corin Chino - Last Filed: 03/05/24 07:59> Vital Signs/Physical Exam: Temp Pulse Resp BP Pulse Ox 97.9 F 60 16 146/71 H 93 03/05/24 12:00 03/05/24 12:00 03/05/24 12:00 03/05/24 12:00 03/05/24 12:00 Laboratory Data at Discharge: WBC 13.20 thou/uL (4.3-10.9) H 03/03/24 04:13 Hgb 10.9 g/dL (12.0-15.0) L D 03/03/24 04:13 Hct 34.5 % (36.0-45.0) L 03/03/24 04:13 Plt Count 666 thou/uL (152-406) H 03/03/24 04:13 PT 13.6 SECONDS (9.5-12.5) H 03/02/24 17:15 INR 1.24 03/02/24 17:15 Sodium 139 mEq/L (136-145) 03/04/24 06:58 Potassium 4.7 mEq/L (3.5-5.1) D 03/04/24 06:58 BUN 22 mg/dL (7-18) H 03/04/24 06:58 Creatinine 0.52 mg/dL (0.55-1.02) L 03/04/24 06:58 Glucose 169 mg/dL (74-106) H 03/04/24 06:58 Magnesium 2.1 mg/dL (1.6-2.4) 03/02/24 17:15 Total Bilirubin 0.3 mg/dL (0.2-1.0) 03/03/24 04:13 AST 6 U/L (15-37) L 03/03/24 04:13 ALT 13 U/L (13-56) 03/03/24 04:13 Alkaline Phosphatase 100 U/L (45-117) 03/03/24 04:13 Lipase 10 U/L (13-75) L 03/02/24 17:15 <Lio Barnett - Last Filed: 03/06/24 09:34> Diet: AHA Time spent managing pt's care (in minutes): 55 <Corin Chino - Last Filed: 03/05/24 07:59> <Lio Barnett - Last Filed: 03/06/24 09:34> Home Medications: Albuterol Sulfate [Albuterol Sulfate Hfa] 2 puff IH Q6H PRN 03/02/24 Azithromycin 500 mg PO DAILY 4 Days #4 mg 03/04/24 Cetirizine HCl/Pseudoephedrine [Zyrtec-D Tablet] 1 each PO DAILY 30 Days #30 tab 03/04/24 Methylprednisolone [Medrol dosepack] 4 mg PO DIRECTED 5 Days #1 jonna 03/04/24 Mometasone/Formoterol [Dulera 200 Mcg-5 Mcg Inhaler] 8.8 gm IH BID #1 inh 0 03/04/24 Albuterol Inhaler [Ventolin Inhaler*] 2 puff IH Q4H PRN 30 Days #1 inh 03/05/24 Albuterol Sulfate [Albuterol Sulfate 0.083% Neb Soln] 2.5 mg IH Q4H PRN 30 Days #1 box 03/05/24 Hydrocodone 5/APAP 325 [[place] 5/325] 1 tab PO Q6H PRN #20 tab 03/05/24 Ibuprofen 800 mg PO Q8H PRN 30 Days #30 mg 03/05/24 Ipratropium Neb [Atrovent*] 0.5 mg IH Q4H PRN 30 Days #1 box 03/05/24 Pantoprazole [Protonix Tab] 40 mg PO DAILY #30 tab 03/05/24 New Medications: Albuterol Sulfate [Albuterol Sulfate 0.083% Neb Soln] 2.5 mg IH Q4H PRN 30 Days #1 box PRN Reason: Shortness Of Breath Ipratropium Neb [Atrovent*] 0.5 mg IH Q4H PRN 30 Days #1 box PRN Reason: Shortness Of Breath Azithromycin 500 mg PO DAILY 4 Days #4 mg Mometasone/Formoterol [Dulera 200 Mcg-5 Mcg Inhaler] 8.8 gm IH BID #1 inh Ibuprofen 800 mg PO Q8H PRN 30 Days #30 mg PRN Reason: Pain Scale 5-7 (Moderate) Methylprednisolone [Medrol dosepack] 4 mg PO DIRECTED 5 Days #1 jonna Hydrocodone 5/APAP 325 [[place] 5/325] 1 tab PO Q6H PRN #20 tab PRN Reason: Pain Pantoprazole [Protonix Tab] 40 mg PO DAILY #30 tab Albuterol Inhaler [Ventolin Inhaler*] 2 puff IH Q4H PRN 30 Days #1 inh PRN Reason: Shortness Of Breath Cetirizine HCl/Pseudoephedrine [Zyrtec-D Tablet] 1 each PO DAILY 30 Days #30 tab Physician Discharge Instructions: 58 year-old female patient presented with shortness of breath was noted to have COPD exacerbation. Condition improved with steroids, nebulizers, IV antibiotics. Patient tolerating diet, stable for discharge to home with follow-up appointment with primary care physician. Follow-up with pulmonary after discharge PROBLEM: COPD exacerbation improved with nebulizer steroids, Bronchitis, Tobacco use Refill inhalers,, discharged home on p.o. steroids, antibiotics. Follow-up with pulmonary after Prescription for albuterol Atrovent nebulizer Inhaled corticosteroid twice daily twice daily Albuterol inhaler Steroid Dosepak Azithromycin daily for 4 days Educated on tobacco cessation Discharge home with home O2 follow-up with primary care physician Continue home medicines as previously prescribed GOAL: Clear understanding of disease process INSTRUCTIONS: Physician Discharge Instructions: -DC IV and DC home -Follow-up with PCP in 1 to 2 weeks -Please call Dr. Barnett at [phone] if any questions regarding hospital stay -Please call nursing station at [phone] if any nursing or medication questions -Return to the emergency room if symptoms worsen Diet: ADA, low sodium Activity: Fall precautions Followup: Marquise Santos MD [ACTIVE - CAN ADMIT] - OOT,OOT [UNKNOWN] -
--- NOTE | 2024-03-04 16:37 | P.PN ---
Subjective Date of Service: 03/04/24 Chief Complaint: Chest Pain, shortness of breath Admitted for COPD exacerbation, reports productive cough, shortness of breath worse with exertion, no reported fever , O2 ordered, - Physical Exam General: Alert, Oriented x3, Cooperative, HEENT: Atraumatic, Normocephalic, PERRLA Neck: Supple Respiratory: Diminished,, equal unlabored Cardiovascular: No edema, Regular rate/rhythm, Normal S1 S2 Capillary refill: <2 Seconds Gastrointestinal: Soft and benign, Non-distended, W/out hepatosplenomegaly Musculoskeletal: No clubbing, No swelling Integumentary: No rashes, No breakdown Neurological: Normal speech, Normal strength at 5/5 x4 extr, Cranial nerves 3-12 intact, Normal reflexes 2+, Normal affect <Corin Chino - Last Filed: 03/04/24 16:38> Date of Service: 03/04/24 <Lio Barnett - Last Filed: 03/06/24 09:32> Review of Systems per HPI <Corin Chino - Last Filed: 03/04/24 16:38> Physical Examination - Vital Signs Temperature: 98.0 F Blood Pressure: 136/74 Pulse: 59 Respirations: 20 Pulse Ox (%): 92 <Corin Chino - Last Filed: 03/04/24 16:38> Assessment And Plan - Plan Assessment and Plan (1) COPD exacerbation Leukocytosis secondary to steroid use improving Current Visit: Yes Status: Acute COPD exacerbation Monitor closely on telemetry Started on bronchodilators Oxygen supplementation Steroids added ABG findings noted Chest x-ray findings noted Pulmonology consult if not better in the a.m. Trend WBC 16.6, 13.20 (2) Acute respiratory failure with hypoxia and hypercapnia Current Visit: Yes Status: Acute Oxygen supplementation Will try to wean down oxygen requirement Started on bronchodilators and steroids, IV azithromycin, ceftriaxone Home O2 ordered (3) Bronchitis Current Visit: Yes Status: Acute Started on antibiotics empirically Will obtain cultures Change antibiotic as per sensitivity (4) Chest pain Current Visit: Yes Status: Acute Monitor closely on telemetry Trend cardiac enzymes Started on aspirin and statin Cardiology consult if cardiac enzymes are positive (5) Hypokalemia Current Visit: Yes Status: Acute 2.9 repeat 3.9 Will replace potassium Monitor under telemetry Electrolytes monitor and replace accordingly Full code Diet cardiac DVT Lovenox Disposition Discharge Plan: Home - Code Status/Comfort Care Code Status: Full Code Critical Care: No Time Spent Managing PTS Care (In Minutes): 35 <Corin Chino - Last Filed: 03/04/24 16:38> Date of Service: 03/04/24 Agree with plan of care as mentioned above. Patient has done well during hospital stay. Patient's clinical symptoms have improved. Patient will continue with medical therapy as an outpatient. Agree with the assessment and plan. Most of the MDM was done by myself and plan of care was discussed with ASHLEY as well as the patient. Plan to discharge home with DC planning in a.m. as long as patient continues to improve. <Lio Barnett - Last Filed: 03/06/24 09:32>
[2024-03-05 08:50] VITALS: O2SAT 94
[2024-03-05 12:56] VITALS: BP 146/71; TEMP 97.9
--- NOTE | 2024-03-07 08:53 | ECHO ---
HEIGHT: 5 ft 4 in WEIGHT: 202 lb 1.6 oz DATE OF STUDY: 03/04/[address]: Lio Barnett MD 2-DIMENSIONAL: YES M.MODE: YES DOPPLER: YES COLOR FLOW: YES TDS: PORTABLE: YES DEFINITY: BUBBLE STUDY: DIAGNOSIS: CONGESTIVE HEART FAILURE CARDIAC HISTORY: CATHERIZATION: SURGERY: PROSTHETIC VALVE: PACEMAKER: MEASUREMENTS (cm) DIASTOLIC (NORMALS) SYSTOLIC (NORMALS) IVSd 0.8 (0.6-1.2) LA Diam 4.4 (1.9-4.0) LVEF 79% LVIDd 4.6 (3.5-5.7) LVIDs 2.4 (2.0-3.5) %FS 48% LVPWd 1.0 (0.6-1.2) Ao Diam 2.7 (2.0-3.7) 2 DIMENSIONAL ASSESSMENT: RIGHT ATRIUM: NORMAL LEFT ATRIUM: ENLARGED RIGHT VENTRICLE: NORMAL LEFT VENTRICLE: NORMAL TRICUSPID VALVE: MILD TRICUSPID REGURGITATION MITRAL VALVE: MILD MITRAL REGURGITATION PULMONIC VALVE: MILD PULMONIC INSUFFICIENCY AORTIC VALVE: NORMAL PERICARDIAL EFFUSION: NONE AORTIC ROOT: NORMAL LEFT VENTRICULAR WALL MOTION: NORMAL DOPPLER/COLOR FLOW: SEEE BELOW COMMENTS: 1. NORMAL LEFT VENTRICULAR EJECTION FRACTION 60*56% WITH NORAML WALL MOTION 2. DIASTOLIC DYSFUNCTION 3. LEFT ATRIAL ENLARGEMENT 4. MILD TRICUSPID REGURGITATION, MITRAL REGURGITATION, PULMONIC INSUFFICIENCY TECHNOLOGIST: BOGDAN PARRY
== END 2024-03-05 12:40 | disposition home or self-care (01) | DRG 190 ==
LOC: ER 17:02 → ERHOLD 18:34 → 4TH 21:30 → OBSVTOIN 03-03 12:33
PROVIDERS: ADMIT Family Medicine; ATTEND Hospitalist
DX: J44.1 Chronic obstructive pulmonary disease with (acute) exacerbation (principal); J96.01 Acute respiratory failure with hypoxia; J96.02 Acute respiratory failure with hypercapnia; J20.9 Acute bronchitis, unspecified; J44.0 Chronic obstructive pulmonary disease with (acute) lower respiratory infection; E87.6 Hypokalemia; D72.829 Elevated white blood cell count, unspecified; T38.0X5A Adverse effect of glucocorticoids and synthetic analogues, initial encounter; F17.210 Nicotine dependence, cigarettes, uncomplicated; Z71.6 Tobacco abuse counseling; Z11.52 Encounter for screening for COVID-19; Z79.899 Other long term (current) drug therapy
CPT/HCPCS: 36415; 71045; 71275; 80048; 80053; 80076; 81001; 82805; 83605; 83690; 83735; 83880; 84484; 85025; 85610; 87040; 87804; 87811; 93005; 93306; 94760; 99285; G0378; J0696; J1650; J2543; J2920; J2930; J7030; J7050; J7614; J7644; Q9967

== ENCOUNTER 2024-03-31 17:56 | Emergency (ER) | payer OTHER ==
--- NOTE | 2024-03-31 18:59 | ER ---
Nurse's Notes [facility] Name: Ranjana Stallworth Age: 59 yrs Sex: Female : 1965 Arrival Date: 03/31/2024 Time: 17:56 Bed External Waiting Private MD: Chica Jain Diagnosis: Presentation: 03/31 18:08 Note CALLED PT FOR TRIAGE NO RESPONSE. REGISTRATION STATES PATIENT WALKED OUTSIDE AFTER db CHECKING IN. 18:16 Note CALLED PT FOR TRIAGE NO ANSWER. db 18:27 Note CALLED PT FOR TRIAGE NO ANSWER. PT HAS NOT COME BACK INTO THE BUILDING. db 18:43 Note CALLED PT FOR TRIAGE NO ANSWER. PT NOT OUTSIDE. db 18:50 Note CALLED PT FOR TRIAGE NO ANSWER. NOTIFIED CHARGE UNABLE TO LOCATE PT. db ED Course: 18:00 Patient arrived in ED. mr 18:00 Chica Jain is Private Physician. mr 18:10 Janet Dubois MD is Attending Physician. sd2 18:57 Patient's name was called from ER lobby. No response. Unable to locate patient. Will db disposition as left without being seen by a provider. Administered Medications: No medications were administered Outcome: 18:58 Patient left the ED. db Signatures: Juju Juares, Munir Reg mr Janet Dubois MD MD sd2 Caridad Malagon RN RN db
== END 2024-03-31 18:58 | disposition left against medical advice (07) ==
LOC: ER 17:56
DX: Z02.9 Encounter for administrative examinations, unspecified (principal)

== ENCOUNTER 2024-06-06 21:11 | Emergency (ER) | payer OTHER ==
--- OUTSIDE RECORDS SUMMARY | 2024-06-06 21:18 | XMS REPORT | Continuity of Care Document ---
Author Name Unknown Address [address] [facility] [address] [facility] [place] [address] [facility] Address [address] [place] [address] Care Team Providers Care Grey Washer Name Role Phone CHICA JAIN Primary Care Physician Unavailab fuentes Barnes RN, Jaqueline Escalante Attending Clinician [phone] Simba Sellers MD Attending Clinician [phone] Hillary ALLEN, Nahun Shah Attending Clinician Suzanne ALLEN, Ronald Lewis Attending Clinician Samia Manley DO Attending Clinician SAMIA MANLEY Attending Clinician Unavailable Heather ALLEN, Bessy Sanchez Attending Clinician [phone] Suzanne ALLEN, Ronald Lewis Admitting Clinician [phone] RONALD ZULUAGA Admitting Clinician Unavailab dill Payers Payer Name Policy Type Policy Number Effective Date Expirati on Date Source Problems Condition Name Condition Details Condition Category Status Onset Date Resolution Date Last Treatment Date Treating Clinician Comments Source Obesity (BMI 30-39.9) Obesity (BMI 30-39.9) Disease Active 04-01 00:00: 00 [facility] Hilar mass Hilar mass Disease Active 04-01 00:00: 00 [facility] COPD (chronic obstructiv e pulmonary disease) COPD (chronic obstructiv e pulmonary disease) Disease Active 04-01 00:00: 00 [facility] Pleural effusion Pleural effusion Disease Active 04-01 00:00: 00 [facility] Pleural effusion on left Pleural effusion on left Disease Active 03-31 00:00: 00 [facility] Mass of left lung Mass of left lung Disease Active 03-31 00:00: 00 [facility] Allergies, Adverse Reactions, Alerts Allergy Name Allergy Type Status Severity Reaction(s) Onset Date Inactive Date Treating Clinician Comments Source NO KNOWN ALLERGIE S Drug Class Active [facility] Social History Social Habit Start Date Stop Date Quantity Comments Source History of tobacco use Cigarette Smoker [facility] Sexual orientation [facility] Alcoholic beverage intake 2024-04-13 00:00:00 2024-04-13 00:00:00 Ex-drinker (finding) [facility] History of Social function 2024-04-05 00:00:00 2024-04-05 00:00:00 [facility] Cigarettes smoked current (pack per day) - Reported 2024-04-01 00:00:00 2024-04-01 00:00:00 [facility] Cigarette pack-years 2024-04-01 00:00:00 2024-04-01 00:00:00 [facility] Sex assigned at 1965 00:00:00 1965 00:00:00 [facility] Smoking Status Start Date Stop Date Source Ex-smoker 2024-04-01 00:00:00 2024-04-01 00:00:00 [facility] Medications Ordered Medication Name Filled Medication Name Start Date Stop Date Current Medication? Ordering Clinician Indication Dosage Frequency Signature (SIG) Comments Components Source polyethylen e glycol 3350 17 gram powder 04-14 00:00: 00 Yes 17g Take 1 Packet by mouth every morning. [facility] ibuprofen 800 mg tablet 04-13 11:51: 30 Yes 800mg Take 1 tablet by mouth every 8 (eight) hours as needed (headaches ). [facility] albuterol 2.5 mg/0.5 mL nebulizer solution 04-13 11:51: 30 Yes 2.5mg Inhale 0.5 mL in the morning and 0.5 mL in the evening. 2 puffs twice a day [facility] Fluticasone -Salmeterol (ADVAIR DISKUS) 100-50 mcg/dose inhalation disk 04-13 11:51: 30 Yes 1{puff} Inhale 1 Puff every 12 (twelve) hours. [facility] acetaminoph en (TYLENOL) tablet 650 mg 04-13 04:40: 10 Yes 650mg 650 mg, Oral, Q6HPRN, Starting on Thu04/12/24 at 2340, Until Discontinu ed, Routine, Pain (scale 1-3), Temp > 38 C [facility] morphine IR 15 mg tablet 04-13 00:00: 00 Yes 15mg Take 1 tablet by mouth every 4 (four) hours as needed for Pain (scale 7-10). [facility] sennosides- docusate sodium 8.6-50 mg per tablet 04-13 00:00: 00 Yes 1{tbl} Take 1 tablet by mouth once daily as needed for Constipati on. [facility] HYDROcodone -acetaminop hen 5-325 mg tablet 04-13 00:00: 00 Yes 1{tbl} Take 1 tablet by mouth every 6 (six) hours as needed for Pain (scale 4-6). [facility] EPINEPHrine 1:1,000 (1 mg/mL) (ADRENALIN) injection 04-12 17:47: 00 04-12 19:12 :36 No PRN, Starting on Thu04/12/24 at 1247, Until Thu04/12/24 at 1412, Routine, Intra-op [facility] lidocaine 4% (XYLOCAINE) 4 % (40 mg/mL) topical solution 04-12 17:24: 00 04-12 19:12 :36 No PRN, Starting on Thu04/12/24 at 1224, Until Thu04/12/24 at 1412, Routine, Intra-op [facility] polyethylen e glycol 3350 powder 17 g 04-12 11:00: 00 Yes 17g 17 g, Oral, QAM-0600, First dose (after last modificati on) on Thu04/12/24 at 0600, Until Discontinu ed, Routine [facility] acetaminoph en (TYLENOL) tablet 650 mg 04-12 10:00: 00 04-12 09:32 :00 No 650mg 650 mg, Oral, ONCE, 1 dose, On Thu04/12/24 at 0500, Routine [facility] ipratropium -albuteroL (DUONEB) 0.5 mg-3 mg(2.5 mg base)/3 mL nebulizer solution 3 mL 04-12 05:30: 00 Yes 3mL 3 mL, Inhalation , Q4H, First dose (after last modificati on) on Thu04/12/24 at 0030, Until Discontinu ed, Routine [facility] morphine IR (MSIR) tablet 15 mg 04-11 12:15: 08 Yes 15mg 15 mg, Oral, Q4HPRN, Starting on Thu04/11/24 at 0715, Until Discontinu ed, Routine, Pain (scale 7-10) [facility] HYDROcodone -acetaminop hen (NORCO 5) 5-325 mg tablet 1 tablet 04-07 20:12: 35 Yes 1{tbl} 1 tablet, Oral, Q6HPRN, Starting on Thu04/07/24 at 1512, Until Discontinu ed, Routine, Pain (scale 4-6) [facility] morpHINE (2 mg/mL) injection 4 mg 04-07 20:12: 22 04-11 12:15 :16 No 4mg 4 mg, Slow IV Push, Q4HPRN, Starting on Thu04/07/24 at 1512, Until Thu04/11/24 at 0715, Routine, Pain (scale 7-10) [facility] ketorolac (TORADOL) injection 30 mg 04-07 19:00: 00 04-07 18:28 :00 No 30mg 30 mg, Intramuscu lar, ONCE, 1 dose, On Thu04/07/24 at 1400, Routine [facility] iopamidol (ISOVUE 370-500 mL) injection 90 mL 04-07 00:15: 00 04-06 23:10 :00 No [id number] 90mL 90 mL, Intravenou s, ONCE, 1 dose, On Thu04/06/24 at 1915, Routine [facility] HYDROcodone -acetaminop hen (NORCO 5) 5-325 mg tablet 1 tablet 04-05 12:50: 20 04-07 20:12 :46 No 1{tbl} 1 tablet, Oral, Q6HPRN, Starting on Thu04/05/24 at 0750, Until Thu04/07/24 at 1512, Routine, Pain (scale 7-10) [facility] magnesium hydroxide (MILK OF MAGNESIA) 400 mg/5 mL suspension 30 mL 04-05 02:00: 00 04-05 01:15 :00 No 30mL 30 mL, Oral, ONCE, 1 dose, On Thu04/04/24 at 2100, Routine [facility] sennosides- docusate sodium (SENOKOT-S) 8.6-50 mg per tablet 1 tablet 04-04 19:18: 15 Yes 1{tbl} 1 tablet, Oral, QDAILYPRN, Starting on Thu04/04/24 at 1418, Until Discontinu ed, Routine, Constipati on [facility] ibuprofen (IBU) tablet 400 mg 04-03 14:28: 44 04-07 20:12 :45 No 400mg 400 mg, Oral, Q6HPRN, Starting on Thu04/03/24 at 0928, Until Amie 04/07/24 at 1512, Routine, Pain (scale 4-6) [facility] HYDROcodone -acetaminop hen (NORCO 5) 5-325 mg tablet 1 tablet 04-03 14:28: 35 04-05 12:50 :31 No 1{tbl} 1 tablet, Oral, Q6HPRN, Starting on Thu04/03/24 at 0928, Until Thu04/05/24 at 0750, Routine, Pain (scale 7-10) [facility] ipratropium -albuteroL (DUONEB) 0.5 mg-3 mg(2.5 mg base)/3 mL nebulizer solution 3 mL 04-03 12:15: 00 04-12 05:27 :45 No 3mL 3 mL, Inhalation , TIDPRN, Starting on Thu04/03/24 at 0715, Until Thu04/12/24 at 0027, Routine, Wheezing [facility] perflutren lipid microsphere s (DEFINITY) injection 2 mL 04-02 19:00: 00 04-02 19:00 :00 No [id number] 2mL 2 mL, IV Push, ONCE, 1 dose, On Thu04/02/24 at 1400, Routine [facility] enoxaparin (LOVENOX) injection 40 mg 04-01 14:00: 00 Yes 40mg 40 mg, Subcutaneo us, DAILY, First dose on Thu04/01/24 at 0900, Until Discontinu ed, Routine [facility] polyethylen e glycol 3350 powder 17 g 04-01 14:00: 00 04-11 19:49 :20 No 17g 17 g, Oral, DAILY, First dose on Thu04/01/24 at 0900, Until Discontinu ed, Routine [facility] lactated ringers IV infusion 500 mL 04-01 13:00: 00 04-01 13:17 :28 No 500mL at 250 mL/hr, 500 mL, Intravenou s, ONCE, 1 dose, On Thu04/01/24 at 0800, Routine [facility] ipratropium -albuteroL (DUONEB) 0.5 mg-3 mg(2.5 mg base)/3 mL nebulizer solution 3 mL 04-01 09:00: 00 04-03 12:12 :19 No 3mL 3 mL, Inhalation , Q4H, First dose on Thu04/01/24 at 0400, Until Discontinu ed, Routine [facility] KCL (KLOR-CON M20) tablet 40 mEq 04-01 07:00: 00 04-01 06:32 :00 No 40meq 40 mEq, Oral, ONCE, 1 dose, On Thu04/01/24 at 0200, Routine [facility] HYDROcodone -acetaminop hen (NORCO 5) 5-325 mg tablet 1 tablet 04-01 06:06: 20 04-03 06:05 :20 No 1{tbl} 1 tablet, Oral, Q6HPRN, Starting on Thu04/01/24 at 0106, Until Thu04/03/24 at 0105, Routine, Pain (scale 4-6) [facility] acetaminoph en (TYLENOL) tablet 650 mg 04-01 06:06: 11 04-13 04:40 :21 No 650mg 650 mg, Oral, Q6HPRN, Starting on Thu04/01/24 at 0106, Until Thu04/12/24 at 2340, Routine, Pain (scale 1-3) [facility] FENTanyl PF (SUBLIMAZE (PF)) injection 50 mcg 04-01 03:30: 00 04-01 02:49 :00 No 50ug 50 mcg, Slow IV Push, ONCE, 1 dose, On Thu03/31/24 at 2230, Routine [facility] ondansetron (ZOFRAN (PF)) injection 4 mg 04-01 02:45: 00 04-01 02:46 :00 No 4mg 4 mg, Slow IV Push, ONCE, 1 dose, On Thu03/31/24 at 2145, АНДРЕЙ [facility] KCL (KLOR-CON M20) tablet 40 mEq 04-01 02:30: 00 04-01 02:31 :00 No 40meq 40 mEq, Oral, ONCE, 1 dose, On Thu03/31/24 at 2130, АНДЕРЙ [facility] iopamidol (ISOVUE 370-500 mL) injection 80 mL 04-01 02:30: 00 04-01 02:30 :00 No [id number] 80mL 80 mL, Intravenou s, ONCE, 1 dose, On Amie 03/31/24 at 2130, Routine [facility] Vital Signs Vital Name Observation Time Observation Value Comments S ource Heart rate 2024-04-14 13:24:00 82 /[facility] 2024-04-14 13:24:00 20 /min [facility] Oxygen saturation in Arterial blood by Pulse oximetry 2024-04-14 13:24:00 92 /min [facility] Systolic blood pressure 2024-04-14 12:39:00 112 mm[Hg] [facility] Diastolic blood pressure 2024-04-14 12:39:00 68 mm[Hg] [facility] Body temperature 2024-04-14 12:39:00 36.72 Daniela [facility] Body height 2024-04-01 05:50:00 162.6 cm [facility] Body weight 2024-04-01 05:50:00 89.359 kg [facility] BMI 2024-04-01 05:50:00 33.81 kg/m2 [facility] Heart rate 2024-04-12 12:44:00 71 /min [facility] Respiratory rate 2024-04-12 12:44:00 14 /min [facility] Oxygen saturation in Arterial blood by Pulse oximetry 2024-04-12 12:44:00 100 /min [facility] Systolic blood pressure 2024-04-12 12:33:00 124 mm[Hg] [facility] Diastolic blood pressure 2024-04-12 12:33:00 69 mm[Hg] [facility] Body temperature 2024-04-12 12:33:00 36.72 Daniela [facility] Body height 2024-04-01 05:50:00 162.6 cm [facility] Body weight 2024-04-01 05:50:00 89.359 kg [facility] BMI 2024-04-01 05:50:00 33.81 kg/m2 [facility] Procedures Procedure Date / Time Performed Performing Clinician Source BRONCHOSCOPY (ENDO) 2024-04-14 13:41:35 [facility] 2024-04-12 16:57:00 Bessy Romero [facility] ENDOBRONCHIAL ULTRASOUND-TRANSBRONCHIAL FNA 2024-04-12 16:57:00 Bessy Romero [facility] FLEXIBLE BRONCHOSCOPY 2024-04-12 16:57:00 Heather Bessy [facility] ENDOBRONCHIAL ULTRASOUND-TRANSBRONCHIAL FNA 2024-04-12 16:57:00 Heather Bessy [facility] BASIC METABOLIC PANEL (NA, K, CL, CO2, GLUCOSE, BUN, CREATININE, CA) 2024-04-12 09:34:00 Saeed Watson [facility] CBC WITHOUT DIFF 2024-04-12 09:34:00 [facility]OLIC PANEL (NA, K, CL, CO2, GLUCOSE, BUN, CREATININE, CA) 2024-04-12 09:34:00 Saeed Watson [facility] CBC WITHOUT DIFF 2024-04-12 09:34:00 [facility] 1 2024-04-11 15:24:00 Saeed Watson [facility] XR CHEST 1 2024-04-11 15:24:00 Saeed Watson [facility] XR CHEST 1 2024-04-08 20:16:[address] [facility] XR CHEST 1 2024-04-08 20:16:[address] [facility] GLUCOSE 2024-04-07 19:53:00 Harley Carmen Un [facility] PROTEIN TOTAL 2024-04-07 19:53:[address] [facility] LACTATE DEHYDROGENASE 2024-04-07 19:53:00 Harley Carmen [facility] BASIC METABOLIC PANEL (NA, K, CL, CO2, GLUCOSE, BUN, CREATININE, CA) 2024-04-07 19:53:00 Watson Saeed [facility] GLUCOSE 2024-04-07 19:53:00 [facility] PR[facility] 2024-04-07 19:53:[address] [facility] LACTATE DEHYDROGENASE 2024-04-07 19:53:00 Harley Carmen [facility] BASIC METABOLIC PANEL (NA, K, CL, CO2, GLUCOSE, BUN, CREATININE, CA) 2024-04-07 19:53:00 Watson, Saeed [facility] CBC WITHOUT DIFF 2024-04-07 19:52:00 Saeed Watson [facility] CBC WITHOUT DIFF 2024-04-07 19:52:00 Saeed Watson [facility] XR CHEST 1 VW 2024-04-07 17:20:[address] [facility] XR CHEST 1 VW 2024-04-07 17:20:[address] [facility] GLUCOSE BODY FLUID 2024-04-07 17:00:00 Harley Carmen [facility] T.PROTEIN BODY FLUID 2024-04-07 17:00:00 Harley Carmen [facility] LDH TOTAL BODY FLUID 2024-04-07 17:00:00 Harley Carmen [facility] BODY FLUID DIRECT COUNT 2024-04-07 17:00:00 Adolfo Carmen [facility] BODY FLUID (BACTEC BOTTLE) 2024-04-07 17:00:00 Leo Champagne [facility] BODY FLUID CULTURE WORKUP 2024-04-07 17:00:00 Leo Lino [facility] GLUCOSE BODY FLUID 2024-04-07 17:00:00 Harley Carmen [facility] T.PROTEIN BODY FLUID 2024-04-07 17:00:00 Harley Carmen [facility] LDH TOTAL BODY FLUID 2024-04-07 17:00:00 Harley Carmen [facility] BODY FLUID DIRECT COUNT 2024-04-07 17:00:00 Adolfo Carmen [facility] BODY FLUID (BACTEC BOTTLE) 2024-04-07 17:00:00 Champagne, Leo Echols [facility] BODY FLUID CULTURE WORKUP 2024-04-07 17:00:00 Ca Leo arguelles [facility] CT ABDOMEN PELVIS W CONTRAST 2024-04-06 23:23:00 Marcus Craig [facility] CT ABDOMEN PELVIS W CONTRAST 2024-04-06 23:23:00 Marcus Craig [facility] BASIC METABOLIC PANEL (NA, K, CL, CO2, GLUCOSE, BUN, CREATININE, CA) 2024-04-04 10:54:00 Saeed Watson [facility] PROTHROMBIN TIME / INR 2024-04-04 10:54:00 Emmanuel Watson [facility] ACTIVATED PARTIAL THRMPLAS ALFREDITO 2024-04-04 10:54:00 Saeed Watson [facility] BASIC METABOLIC PANEL (NA, K, CL, CO2, GLUCOSE, BUN, CREATININE, CA) 2024-04-04 10:54:00 Saeed Watson [facility] PROTHROMBIN TIME / INR 2024-04-04 10:54:00 Emmanuel Watson [facility] ACTIVATED PARTIAL THRMPLAS ALFREDITO 2024-04-04 10:54:00 Saeed Watson [facility] MAGNESIUM 2024-04-03 09:56:00 Saeed Watson [facility] BASIC METABOLIC PANEL (NA, K, CL, CO2, GLUCOSE, BUN, CREATININE, CA) 2024-04-03 09:56:00 Saeed Watson [facility] CBC WITHOUT DIFF 2024-04-03 09:56:00 Saeed Watson [facility] MAGNESIUM 2024-04-03 09:56:00 Saeed Watson [facility] BASIC METABOLIC PANEL (NA, K, CL, CO2, GLUCOSE, BUN, CREATININE, CA) 2024-04-03 09:56:00 Watson, [facility] CBC WITHOUT DIFF 2024-04-03 09:56:00 Watson, Saeed Chavez [facility] TRANSTHORACIC ECHO (TTE) COMPLETE W/ CONTRAST 2024-04-02 18:58:51 Erick [facility] TRANSTHORACIC ECHO (TTE) COMPLETE W/ CONTRAST 2024-04-02 18:58:51 Lori Suarez [facility] MAGNESIUM 2024-04-02 05:08:00 Sandi Suarez [facility] HEPATIC FUNCTION PANEL (27281) (ALB,T.PRO,BILI T,BU/BC,ALT,AST,ALK PHOS) 2024-04-02 05:08:00 Shirley [facility] BASIC METABOLIC PANEL (NA, K, CL, CO2, GLUCOSE, BUN, CREATININE, CA) 2024-04-02 05:08:00 Lori Suarez [facility] CBC WITH DIFF 2024-04-02 05:08:00 Sandi Suarez [facility] MAGNESIUM 2024-04-02 05:08:00 Sandi Suarez [facility] HEPATIC FUNCTION PANEL (85406) (ALB,T.PRO,BILI T,BU/BC,ALT,AST,ALK PHOS) 2024-04-02 05:08:00 Shirley [facility] BASIC METABOLIC PANEL (NA, K, CL, CO2, GLUCOSE, BUN, CREATININE, CA) 2024-04-02 05:08:00 Lori Suarez [facility] CBC WITH DIFF 2024-04-02 05:08:00 Sandi Suarez [facility] XR CHEST 1 VW 2024-04-01 19:45:00 Elder Asif [facility] XR CHEST 1 VW 2024-04-01 19:45:00 Elder Asif [facility] CYTO PLEURAL FLUID 2024-04-01 19:38:00 Elder Asif [facility] CYTO PLEURAL FLUID 2024-04-01 19:38:00 Elder Asif [facility] AMYLASE BODY FLUID 2024-04-01 19:30:00 Elder Asif [facility] GLUCOSE BODY FLUID 2024-04-01 19:30:00 Elder Asif [facility] T.PROTEIN BODY FLUID 2024-04-01 19:30:00 Yefri [facility] BODY FLUID DIRECT COUNT 2024-04-01 19:30:00 Kings Asif [facility] BODY FLUID (BACTEC BOTTLE) 2024-04-01 19:30:00 Leo Champagne [facility] AFB CULTURE 2024-04-01 19:30:00 Yefri [facility] LDH TOTAL BODY FLUID 2024-04-01 19:30:00 Yefri [facility] BODY FLUID FUNGUS CULTURE (BACTEC BOTTLE) 2024-04-01 19:30:00 Leo Champagne [facility] AMYLASE BODY FLUID 2024-04-01 19:30:00 Elder Asif [facility] GLUCOSE BODY FLUID 2024-04-01 19:30:00 Elder Asif [facility] T.PROTEIN BODY FLUID 2024-04-01 19:30:00 Yefri [facility] BODY FLUID DIRECT COUNT 2024-04-01 19:30:00 Kings Asif [facility] BODY FLUID (BACTEC BOTTLE) 2024-04-01 19:30:00 Leo Champagne [facility] [employer] CULTURE 2024-04-01 19:30:00 Yefri [facility] LDH TOTAL BODY FLUID 2024-04-01 19:30:00 Yefri [facility] BODY FLUID FUNGUS CULTURE (BACTEC BOTTLE) 2024-04-01 19:30:00 Leo Champagne [facility] URINALYSIS 2024-04-01 09:37:00 Sandi Suarez Kehinde [facility] URINALYSIS 2024-04-01 09:37:00 [facility] 2024-04-01 09:15:44 Mireya vegaLori [facility] CT HEAD WO CONTRAST 2024-04-01 09:15:44 Mireya vega Lori [facility] IRON PANEL 2024-04-01 06:31:00 Sandi Suarez [facility] PROTHROMBIN TIME / INR 2024-04-01 06:31:00 Beena brunson [facility] ACTIVATED PARTIAL THRMPLAS ALFREDITO 2024-04-01 06:31:00 Yashatsnehemiah [facility] COVID-19 (ID NOW RAPID TESTING) 2024-04-01 06:31:00 Erick [facility] LAB ONLY COVID INTERPRETATION 2024-04-01 06:31:00 Erick [facility] IRON PANEL 2024-04-01 06:31:00 Sandi Suarez [facility] PROTHROMBIN TIME / INR 2024-04-01 06:31:00 Mavra nannette [facility] ACTIVATED PARTIAL THRMPLAS ALFREDITO 2024-04-01 06:31:00 [facility] COVID-19 (ID NOW RAPID TESTING) 2024-04-01 06:31:00 Erick [facility] LAB ONLY COVID INTERPRETATION 2024-04-01 06:31:00 Lori Suarez [facility] HB ECG ROUTINE & RHYTHM STRIP 2024-04-01 06:27:57 Simba Sellers [facility] HB ECG ROUTINE & RHYTHM STRIP 2024-04-01 06:27:57 Simba Sellers [facility] CT CHEST PULMONARY ANGIOGRAM 2024-04-01 01:30:08 Simba Sellers [facility] CT CHEST PULMONARY ANGIOGRAM 2024-04-01 01:30:08 Simba Sellers [facility] XR CHEST 1 VW 2024-04-01 00:13:55 Simba Sellers [facility] XR CHEST 1 VW 2024-04-01 00:13:55 Simba Sellers [facility] AC PANEL 20 + LACTIC ACID 2024-04-01 00:04:00 Simba Sellers [facility] AC PANEL 20 + LACTIC ACID 2024-04-01 00:04:00 Simba Sellers [facility] FERRITIN SERUM 2024-03-31 23:55:00 [facility] 2024-03-31 23:55:00 [facility] COMP. METABOLIC PANEL (16901) 2024-03-31 23:55:00 Simba Sellers [facility] CBC WITH DIFF 2024-03-31 23:55:00 Simba Sellers [facility] GLYCOSYLATED HEMOGLOBIN (A1C) 2024-03-31 23:55:00 Lori Suraez [facility] N-TERMINAL PRO-BNP 2024-03-31 23:55:[address] [facility] FERRITIN SERUM 2024-03-31 23:55:00 Sandi Suarez [facility] TROPONIN I 2024-03-31 23:55:00 Simba Sellers [facility] COMP. METABOLIC PANEL ([id number]) 2024-03-31 23:55:[address] [facility] CBC WITH DIFF 2024-03-31 23:55:00 Simba Sellers [facility] GLYCOSYLATED HEMOGLOBIN (A1C) 2024-03-31 23:55:00 Lori Suarez [facility] N-TERMINAL PRO-BNP 2024-03-31 23:55:00 Simba Sellers [facility] EKG-12 LEAD 2024-03-31 23:53:37 [facility] EKG-12 LEAD 2024-03-31 23:53:37 Simba Sellers [facility] Encounters Start Date/Time End Date/Time Encounter Type Admission Type Attending [facility] Facility Care Department Encounter ID Source 2024-05-10 16:54:10 2024-05-10 16:54:10 Outpatient SFA SFA [id number] Emile Baker 2024-04-15 00:00:00 2024-04-15 12:10:21 Transition of Care Jaqueline Barnes [id number] [facility] 2024-03-31 18:45:00 2024-04-14 09:37:00 Hospital Encounter Simba Sellers, Nahun Zuluaga, Ronald Manley, Samia [facility] [id number] [facility] 2024-03-31 18:45:00 2024-04-14 09:37:00 Inpatient X SAMIA MANLEY [facility] [id number] [facility] 2024-04-12 10:45:00 2024-04-12 12:51:00 Surgery Bessy Romero [employer] [facility] [id number] [facility] 2024-03-31 15:20:58 2024-03-31 15:20:58 Outpatient SFA SFA [id number] Emile Baker 2024-03-17 15:13:29 2024-03-17 15:13:29 Outpatient SFA SFA [id number] Emile Baker 2024-01-20 14:35:35 2024-01-20 14:35:35 Outpatient SFA SFA [id number] Emile Baker 2023-12-28 11:37:41 2023-12-28 11:37:41 Outpatient SFA SFA [id number] Emile Baker 2023-12-21 08:22:18 2023-12-21 08:22:18 Outpatient SFA SFA [id number] Emile Baker 2023-12-18 14:10:41 2023-12-18 14:10:41 Outpatient SFA SFA [id number] Emile Baker 2023-12-17 15:48:07 2023-12-17 15:48:07 Outpatient SFA SFA [id number] Emile Baker 2023-11-19 15:30:55 2023-11-19 15:30:55 Outpatient SFA SFA [id number] Emile Bkaer 2023-09-24 15:03:54 2023-09-24 15:03:54 Outpatient SFA SFA [id number] Emile Baker 2023-09-01 16:28:53 2023-09-01 16:28:53 Outpatient SFA SFA [id number] Emile Baker 2023-06-25 16:11:50 2023-06-25 16:11:50 Outpatient SFA SFA [id number] Emile Baker 2023-06-10 15:39:12 2023-06-10 15:39:12 Outpatient SFA SFA [id number] Emile Baker 2023-05-29 14:35:33 2023-05-29 14:35:33 Outpatient SFA SFA [id number] Emile Baker 2023-04-15 17:02:07 2023-04-15 17:02:07 Outpatient SFA SFA [id number] Emile Baker 2023-03-24 14:00:33 2023-03-24 14:00:33 Outpatient SFA SFA [id number] Emile Baker 2023-03-13 11:18:48 2023-03-13 11:18:48 Outpatient SFA SFA [id number] Emile Baker Results Test Description Test Time Test Comments Results Resul t Comments Source XR CHEST 1 VW 2024-03-30 3 15:55:15 ORDERING PHYSICIAN: LEO CHAMPAGNE. HISTORY: Eval chest tube TECHNIQUE: AP COMPARISON: 04/11/2024 FINDINGS: Lungs: ?There is near complete opacification of the left hemithorax, apartfrom a small portion of the lung apex. Right lung is clear. Pleura: ?A left chest tube is present. There is no pneumothorax. Mediastinum/Alondra: ?No masses or adenopathy. Heart: ?The left heart border is obscured. Other: ?No acute osseous abnormality is seen. [facility] XR CHEST 1 2024-03-30 3 15:55:15 ORDERING PHYSICIAN: LEO CHAMPAGNE. HISTORY: Eval chest tube TECHNIQUE: AP COMPARISON: 04/11/2024 FINDINGS: Lungs: ?There is near complete opacification of the left hemithorax, apartfrom a small portion of the lung apex. Right lung is clear. Pleura: ?A left chest tube is present. There is no pneumothorax. Mediastinum/Alondra: ?No masses or adenopathy. Heart: ?The left heart border is obscured. Other: ?No acute osseous abnormality is seen. [facility] XR CHEST 1 2024-03-30 3 15:46:32 EXAM: ?XR CHEST 1 VW HISTORY: ?Eval pleural effusion Ordering physician: SAMIA MANLEY COMPARISON: Chest x-ray from April 08, 2024.. TECHNIQUE: Frontal chest x-ray. ? FINDINGS: Left chest tube is again in place. There is complete consolidation in theleft lung. Heart is obscured. Right lung is clear. ? No pneumothorax isevident. [facility] XR CHEST 1 2024-03-30 3 15:46:32 EXAM: ?XR CHEST 1 VW HISTORY: ?Eval pleural effusion Ordering physician: SAMIA MANLEY COMPARISON: Chest x-ray from April 08, 2024.. TECHNIQUE: Frontal chest x-ray. ? FINDINGS: Left chest tube is again in place. There is complete consolidation in theleft lung. Heart is obscured. Right lung is clear. ? No pneumothorax isevident. [facility] Body [id number] 21:37:15* Test Item Value Reference Range Interpretation Comme nts T.PROT BF (test code = 4164717777) 4300.0 mg/dL UNSPUN BODY FLUID COLOR (test code = 2245044740) Red UNSPUN BODY FLUID CLARITY (test code = 4322279014) Cloudy SPUN BODY FLUID COLOR (test code = 5243125696) Light Yellow SPUN BODY FLUID CLARITY (test code = 8634622840) Clear Sediment (test code = 2959077203) The sediment volume is 0.1 mLs of the total fluid volume of 4.0 mLs and its color is red. GIANA (test code = GIANA) Test developed and characteristics determined by [facility]. [facility] [id number] 21:37:15* Test Item Value Reference Range Interpretation Comme nts GLUCOSE BF (test code = 0469134589) 126 mg/dL UNSPUN BODY FLUID COLOR (test code = 4831268616) Red UNSPUN BODY FLUID CLARITY (test code = 5619745923) Cloudy SPUN BODY FLUID COLOR (test code = 2231770182) Light Yellow SPUN BODY FLUID CLARITY (test code = 7592968860) Clear Sediment (test code = 7553443360) The sediment volume is 0.1 mLs of the total fluid volume of 4.0 mLs and its color is red. GIANA (test code = GIANA) Test developed and characteristics determined by [facility]. [facility] Body [id number] 21:37:15* Test Item Value Reference Range Interpretation Comme nts T.PROT BF (test code = 6117675139) 4300.0 mg/dL UNSPUN BODY FLUID COLOR (test code = 1677515056) Red UNSPUN BODY FLUID CLARITY (test code = 2180944073) Cloudy SPUN BODY FLUID COLOR (test code = 4006988209) Light Yellow SPUN BODY FLUID CLARITY (test code = 6247063585) Clear Sediment (test code = 2540991927) The sediment volume is 0.1 mLs of the total fluid volume of 4.0 mLs and its color is red. GIANA (test code = GIANA) Test developed and characteristics determined by [facility]. [facility] [id number] 21:37:10* Test Item Value Reference Range Interpretation Comme nts LDH BF (test code = 0393241494) 358 U/L UNSPUN BODY FLUID COLOR (test code = 7283603116) Red UNSPUN BODY FLUID CLARITY (test code = 9592118401) Cloudy SPUN BODY FLUID COLOR (test code = 2239998587) Light Yellow SPUN BODY FLUID CLARITY (test code = 6399779730) Clear Sediment (test code = 7839022184) The sediment volume is 0.1 mLs of the total fluid volume of 4.0 mLs and its color is red. GIANA (test code = GIANA) Test developed and characteristics determined by [facility]. [facility] Total Body [id number] 21:37:10* Test Item Value Reference Range Interpretation Comme nts LDH BF (test code = 2792642747) 358 U/L UNSPUN BODY FLUID COLOR (test code = 8053366203) Red UNSPUN BODY FLUID CLARITY (test code = 7270217274) Cloudy SPUN BODY FLUID COLOR (test code = 4746696148) Light Yellow SPUN BODY FLUID CLARITY (test code = 8260466012) Clear Sediment (test code = 6479344195) The sediment volume is 0.1 mLs of the total fluid volume of 4.0 mLs and its color is red. GIANA (test code = GIANA) Test developed and characteristics determined by [facility]. [facility] [id number] 19:02:48* Test Item Value Reference Range Interpretation Comme nts BF SEGS% (test code = 19670-8) 1 % BF LYMPHS% (test code = 42978-1) 54 % BF MACROPHAGE% (test code = 70187-3) 19 % Leukophages observed. BF MESOS% (test code = 58229-3) 5 % BF EOS% (test code = 39697-8) 1 % BF OTHR CELLS% (test code = 8039189298) 20 % Atypical cells BF #CELLS CNTD (test code = 3644439280) 100 cells/uL PENDING REVIEW- (test code = 30514-9) Yes GIANA (test code = GIANA) Atypical cells seen (favors malignant). Correlate with Cytology results if available. If not, recommend ordering Cytology testing. Reviewed by Rubens Saunders M.D., Director of HEMATOPATHOLOGY. [facility] [id number] 19:02:48* Test Item Value Reference Range Interpretation Comme nts BF SEGS% (test code = 03095-8) 1 % BF LYMPHS% (test code = 10103-8) 54 % BF MACROPHAGE% (test code = 59166-2) 19 % Leukophages observed. BF MESOS% (test code = 13690-8) 5 % BF EOS% (test code = 06923-5) 1 % BF OTHR CELLS% (test code = 2798880976) 20 % Atypical cells BF #CELLS CNTD (test code = 1608383722) 100 cells/uL PENDING REVIEW- (test code = 03418-6) Yes GIANA (test code = GIANA) Atypical cells seen (favors malignant). Correlate with Cytology results if available. If not, recommend ordering Cytology testing. Reviewed by Rubens Saunders M.D., Director of HEMATOPATHOLOGY. [facility] 1 [id number] 19:02:20EXAM: ?XR CHEST 1 VW HISTORY: ?S/p chest tube placement Ordering physician: LEO CHAMPAGNE COMPARISON: Chest x-ray from April 01, 2024. TECHNIQUE: Frontal chest x- ray. ? FINDINGS: There is interval placement of left chest tube. Minimal lucency in theleft lung apex may be due to loculated left pneumothorax of 2% or due tominimal aerated lung. Otherwise, consolidation in the entire left thorax.C ardiac silhouette is partially obscured. Right lung is clear. ?[facility] 1 [id number] 19:02:20EXAM: ?XR CHEST 1 VW HISTORY: ?S/p chest tube placement Ordering physician: LEO CHAMPAGNE COMPARISON: Chest x-ray from April 01, 2024. TECHNIQUE: Frontal chest x-ray. ? FINDINGS: There is interval placement of left chest tube. Minimal lucency in theleft lung apex may be due to loculated left pneumothorax of 2% or due tominimal aerated lung. Otherwise, consolidation in the entire left thorax.Cardiac silhouette is partially obscured. Right lung is clear. ?[facility] Direct [id number] 18:31:16* Test Item Value Reference Range Interpretation Comme nts BF COLOR (test code = 6525504162) Slightly Bloody BF WBC Count (test code = 0133055434) 7510 See_Comment [[employer]] The system which generated this result transmitted reference range: /?L. The reference range was not used to interpret this result as normal/abnormal. BF RBC Count (test code = 7268420944) 26320 See_Comment [[employer]] The system which generated this result transmitted reference range: /?L. The reference range was not used to interpret this result as normal/abnormal. GIANA (test code = GIANA) The reference range and other method performance specifications have not been established for this body fluid. ?The test results must be integrated into the clinical context for interpretation. [facility] [id number] 18:31:16* Test Item Value Reference Range Interpretation Comme nts BF COLOR (test code = 5035186156) Slightly Bloody BF WBC Count (test code = 7460456897) 7510 See_Comment [[employer]] The system which generated this result transmitted reference range: /?L. The reference range was not used to interpret this result as normal/abnormal. BF RBC Count (test code = 1267241463) 54986 See_Comment [[employer]] The system which generated this result transmitted reference range: /?L. The reference range was not used to interpret this result as normal/abnormal. GIANA (test code = GIANA) The reference range and other method performance specifications have not been established for this body fluid. ?The test results must be integrated into the clinical context for interpretation. [facility] PELVIS W [id number] 16:51:09EXAM: CT ABDOMEN/PELVIS WITH CONTRAST HISTORY: ?Concern for metastatic lung cancer 59 yo female with COPD and 40pack year smoking history with concern for metastatic lung cancer. Pleaseevaluate for metastasis, particularly in liver. COMPARISON: CT chest dated 03/31/2024 TECHNIQUE AND FINDINGS: Contiguous axial imaging from the level of the lungbases through the proximal thighs was performed after the administration ofintravenous contrast. Coronal and sagittal reconstructions were obtained. FINDINGS: LOWER THORAX: A large left pleural effusion with collapse of the left lung,pleural metastatic nodules partially visualized. Lower mediastinal lymphnodes are partially visualized for example a 2.0 cm paraesophageal lymphnode. ?There is a 0.9 cm left anterior diaphragmatic lymph node LIVER: Hepatomegaly measuring 19.6 cm in craniocaudal dimensions . Nosuspicious metastatic lesion. A couple of subcentimeter hypodensities inboth hepatic lobes are seen, too small to characterize. Normal contour. GALLBLADDER AND BILIARY TREE: No biliary ductal dilation. ?No gallbladderwall thickening. SPLEEN: Nosplenomegaly. Subcentimeter splenule versus lymph node. PANCREAS: No ductal dilation or masses. ADRENAL GLANDS: Heterogeneous bilateral adrenal nodules consistent withpartially necrotic metastases, measuring 3.0 x 4 cm on the left and 3.0 x4.5 cm on the right. KIDNEYS: No hydronephrosis or obstructing stones. Subtle wedge-shapedhypodensities are seen in the mid polar right kidney (301: 38 and 47).Excreted contrast is noted within the collecting system, limitingevaluation of the stones however 5mm right and 7 mm left renal stones arenoted. GI TRACT: No dilation or wall thickening. Colonic diverticulosis. PELVIS/BLADDER: Unremarkable. PERITONEUM AND RETROPERITONEUM: No free air or fluid. LYMPH NODES: A couple of paraesophageal and upper abdominal metastatic lymphadenopathyare noted includin.9 cm paraesophageal lymph node.1.4 cm left gastric lymph node. A 3.7 cm right paraesophageal lymph node measures at least 4 cm. VESSELS: Unremarkable. BONES AND SOFT TISSUES: No suspicious lytic or sclerotic bony lesions.[facility] PEL[facility] W [id number] 16:51:09EXAM: CT ABDOMEN/PELVIS WITH CONTRAST HISTORY: ?Concern for metastatic lung cancer 59 yo female with COPD and 40pack year smoking history with concern for metastatic lung cancer. Pleaseevaluate for me tastasis, particularly in liver. COMPARISON: CT chest dated 03/31/2024 TECHNIQUE AND FINDINGS: Contiguous axial imaging from the level of the lungbases through the proximal thighs was performed after the administration ofintravenous contrast. Coronal and sagittal reconstructions were obtained. FINDINGS: LOWER THORAX: A large left pleural effusion with collapse of the left lung,pleural metastatic nodules partially visualized. Lower mediastinal lymphnodes are partially visualized for example a 2.0 cm paraesophageal lymphnode. ?There is a 0.9 cm left anterior diaphragmatic lymph node LIVER: Hepatomegaly measuring 19.6 cm in craniocaudal dimensions . Nosuspicious metastatic lesion. A couple of sub centimeter hypodensities inboth hepatic lobes are seen, too small to characterize. Normal contour. GALLBLADDER AND BILIARY TREE: No biliary ductal dilation. ?No gallbladderwall thickening. SPLEEN: Nosplenomegaly. Subcentimeter splenule versus lymph node. PANCREAS: No ductal dilation or masses. ADRENAL GLANDS: Heterogeneous bilateral adrenal nodules consistent withpartially necrotic metastases, measuring 3.0 x 4 cm on the left and 3.0 x4.5 cm on the right. KIDNEYS: No hydronephrosis or obstructing stones. Subtle wedge- shapedhypodensities are seen in the mid polar right kidney (301: 38 and 47). Excreted contrast is noted within the collecting system, limitingevaluation of the stones however 5mm right and 7 mm left renal stones arenoted. GI TRACT: No dilation or wall thickening. Colonic diverticulosis. PELVIS/BLADDER: Unremarkable. PERITONEUM AND RETROPERITONEUM: No free air or fluid. LYMPH NODES: A couple of paraesophageal and upper abdominal metastatic lymphadenopathyare noted includin.9 cm paraesophageal lymph node.1.4 cm left gastric lymph node. A 3.7 cm right paraesophageal lymph node measures at least 4 cm. VESSELS: Unremarkable. BONES AND SOFT TISSUES: No suspicious lytic or sclerotic bony lesions.[facility] Pleural [id number] 18:47:23 * Test Item Value Reference Range Interpretation Comme nts Case Report (test code = 3508282567) Non-Gynecologic Cytology ?Case: [id number] ?Authorizing Provider: ?Leo Champagne MD Collected: ? 04/01/2024 1438 ?Ordering Location: ? ? Medicine ([address]) ? Received: ?04/01/2024 1620 ?Pathologist: ? Dotty Stringer, ? Specimen: ? ?PLEURAL, LEFT, THORACENTESIS FLUID ? Final Diagnosis (test code = 9469708017) g7xthAQcDPYau7qcLIVdiXU uZzEwMzNcZnRuYmpcdWMxIH udocZgGCeafAacFKJ8KACdS P0lfIkifLp5mRgpAJLyovM0 aQGeYLjal2deZCE0z8qrbqn zTGYzSDvtHf2nmQXxtLtjXn ZtAMJyHEb7cP41BDEbjQ8eh UJxJBy8JZFzbSHnzcVsYzTr SDOhkRXouFO3PYBwIC7qtny aZSqsYYlnKYQnhjR3SYZqfS AvE9IxMLNgMW8pshjoHIR4P HfjPVEpJEY3JnRdSHCtu2Xd lus2BuJmwKZmAMzbiHRylmn mczIwXHBhclxiIEEuIFBMRV VSQSwgTEVGVDsgVEhPUkFDR H3DLMUUMvRXOFOSRNTXLtAb K9FVMMBJOE0FAlosXXHlupN dCXLzJF8wTtRNGDZXDVjDLf GADNGWWOHRH1JSHLEVEvDSZ XSOD9TUPEoTJGLGAoHHEc2X HCLfZ6QAVOKQCO9UMgKnFUk wYXJcYjBcZnMyMlxwYXIgRm F6wJ7zAVxoSeViTUBUGhVAW FxwYXJccGFyfXtccnRmMVxz g3LhT1BiYjOsTOlbqfRcIHR rDcmolcztETDrGQO5kmFcDP SpXMicCEYyJXtjYs6yoDYob GvsBhIwLISun1cjhtEJCTqz RnDpW215BWBrFIxov2nmn2T mOKDhsCBjb0N5VJQUeywfwT z3h2fiIgXyYuB5pRNyZCteG 6qnxxYvoVQpT1FuxRSefLn2 vBwaT38jl2M3AircN9msOWA pSCUuN0MxQL9dCAUyRgz0XL X6BAC3YLIkPBBlJ6NpDS3vZ LIklFQfGDv8k1rbvYumVWXi SBL5q7wsNAozmbN6XQ7bos8 whUy4k2raliNzZLOjJNUzjO YKWEIsN3QtdCniCl5jxOa4j ZdaJvjnWJR6Wzy3CA1czh19 nbi6bFplNYIxscgkCjY4EEd yWUAuxdsbIHb0RAheZXIgzA X5FKEcoIFjU8YkAFAoDQ6om he6RMG9FIljBIQwNyB9HTGc pJFcXNKduXimHBhgz344THC 7BtGhVX5nC9Ejm0E6cF3ldI UwSEUorMWnXdYcSYYani7qd XLdDCbra4ZsDXC0mgG8mVTq jWWxELNrPW38Mhtmu0HgWoi fVYT1PQOxvwRex3Yww6dyKg IdclMzU7ptT2VwENInRSVcT HAoDaMyfeLyg3Mvv7QogYDh kDp7h1ztBJRtTDUzfIywu9j oJCL4AQUlD4A7uZCto5yaTE tsEAVxxMW2csP3MNSthVImC 4UweY1fPCEkCA4ulya8x5gs JKX7WGvhQHHcYrD5yrC8BRF qfHMaSHVehUofWOnyc777UB N2VePtZBBkp2AzX2FpzSjiT 87dfKywB56oPFDymUzwdK9y nLfrdB1iOaRkEiJeMOnpeGc wbGFpblxmMVxmczIwXGxhbm vzDRJjOBdlY3ueUcQlUUVbs RzeRNcxv0GhKLCxOZVtNfqy czIwXHBhciBJIGhhdmUgcGV fi45gHMwsyIBnVGFtVKdtKP BnhRssq7LdW9duVO5kD3Eak DGtjiEumgSuIAoxHHZye7r4 lAYhoLvxl5NamPPyUB11dgS tWABcIPI1PMBiw9pjDP67du qsIqSbhH39lvOclnCzHSAbi 9qnC0dzoLDfs7Tbi7NqswZp MNlnh2KzRH5zxKPffxojwYD 0TFIqbPOefbMdaaB0bMkzPT RbmZ2cyP8cwGyftC4xKoDmL zLiVSibXY6fHAVfX7tlzLKb FZMuCRVmP3xhBnDkfK1epUo rDdyotoB3GOZayv18 Final Diagnosis Comment (test code = [id number]) h5arkYHjABBvyAGvOGTpB4g wuhWbWYYmcQJyR0IopevnCJ xuZN6iXH6grOzcwBDnqKTsX WDoMcRsu1swh079pOGyr9bf CGYTzzkanTp4tMutE74ps6O 4WcuzR96pvPRhKNY4BVRvZY EdzDDoHHZgAMH7ITHmhHEwP 7yaMDDpBY1wusqiDWalBElt YNArjHT4DQIyoWIqO2VyREF lHHebRMJjzmb3TdPmQy3isC VyeTcyMFxwYXJkXHBsYWluX CVxVdZjW9t2k6xwP9bxJOHl YWHotbV7iX2cmnGcmN48VNJ gNfK2IUCaOCA3KVQrNUQrWW zoP83nhhHlB7WzhRRmlTvdo SUkmqMvrOJyU7Tst0k3eAMp fEHlbyVboj4rXYCzOwqbaCQ sKGc6iHSaPS83C2rffREzbc RlMTRxR4prbx55koPcu1Sgl OzggZhxG0v5QCPfBB0lEF8m d954kAQmrOTpXUQwhSwyNbL hgNMxOBVriwXYrJ82dk8kaU MqpmAyTTNsSICgebCpbt2zY CFfsnXbpF1wupUFGpN3qVAe IGFwcHJvcHJpYXRlIGNvbnR od7abOXFxALCuj0uyg4tusc tgFcjyUGaiD1W2VQOtikamJ EOnYmSaHKOgtwWhKGinCV0l aXRpdmUgXHBhciAtIENsYXV dgW9qACemFV5qrTVumrCexE CqQWUcBNBoZ2HautB2uL1pb ikeVTywvAopF2g5amDjULRs lJttbIdmgHFgVYdml8pmBVP gLSBUVEYtMTogTmVnYXRpdm YyEAisgSi9XYQrB0DueKPkQ XJpdHkpXHBhclxwYXIgRmlu DQhdS5XbABKgWYN1o3KiP6k jiQHnVy9ePM8tuCNtcES9bF PvV1LsU0ntj44uPEPiu6ybu sVyIDKdFKJxFZTdrZG9SD4w IHRoZSBjZWxscyBvZiBpbnR lcmVzdCBwcmVjbHVkZXMgZn BdfXlcesHcoAWdOXW6FJLws lQ2gX3xRwAMJHTfTSTgs3Of cGxpbmcgaXMgcmVxdWlyZWQ cVb0cBGYyFmurwVF0PRIzyN Avlc0fyWKnJXJexu6= Clinical Information (test code = [id number]) Clinical Hx: 59yoF w/ lung mass and unilateral pleural effusion new . Gross Description (test code = 8231196027) k5jdzHAwCXXiySWCSHW6IUU tTS8jcGgcaIx3hVejWQSrbk Q1uOIrSWamg5huXTD1v2kue eTAEcjlTJZbPR5uFRaoBJEk OK3bCwJfHQZpEsQiRZQncCP zlzBwEkXgURQgzQBnqPE5CP IwCQ9ucnznGYnsQPguTWBbz wF0RAYhyDJdD8RwOYDhCD6c dlrsJYF3PHXPTsxyKd0lvKC ibHtcZjFcZmNoYXJzZXQwXG Eih0pcxuRRrwyoqAy4vA5Gc 0gpp0eutzCmoRasplBfNBjp mpSybeByTtp7LGT7yL2VGWL sH0DiUD9Eu5niWNKkxMReTF E6RQddq1ueMDafUTA6WEYmX WMiAHGaPI4YYfKlSZEiHERe SXZ0NmK3TDo7EMCTRUItFKM kLTv9YFI1EPu2DZMtAJ2wDZ fifKMeBMqnEyblAFosL944P HxvFAWiI5MjY6SiAFimOmSw JImzGTUnTEQsUCgsOXXbL2A XMXLoYIL6LEK8VEipNSt8JC k0BA9LIgDwOPUvKeZfDbJ3R zAbOFr8HOldCJ6BRLTkREX3 VfJ8PbZqYOH3EvCzLVs1ECH gXFxzcyAzIFxcZmwgXFxuY3 1ccGFyZCANClxwbGFpblxsd HJjaFxmczIyXHBhciANClxw FDThJQ1CQPDoQFwhAIx2zaB eTQHkGuSfDTMbF61fw7PWw4 HiWW4GDFi1tcMyehVNAocyD EUeXNwOCH8bCUWGIGVGAGph MYXJMPzjTLhXOsJHXG6NDGY JUyBGTFVJRFxwYXIgDQpSZW NlaXZlZCBmcmVzaCBpcyAxI XZoM9Vns9UvX3syTYTmHlm9 aWQgXGxpbmUgUHJlcGFyZWQ gMSBzbGlkZXMgKDEgUGFwYW 8rX10pDO07AII7gF5nsGsnL JppSGDeJLiqkJRfLQ5QGUia FPZ7lLOmcvUHTaztHiCjOoV zFWFPVq9pUUgzKlDgEuSjLm LJCGTTMePfSSrWDuH9WZWLG 3FLG3RMVLBLHIOkYkeDEPQz K4UaAZXfUeQeDqBJBNfDSLC KL6LQMHClheXCVsInh4yskQ HdSKBdhUfkDRQyLHijNX34D ZKyFKJiTOSvoqPpr3QwTUbx evJffuU8JaLdYsZeXKQsJeY wIGhvdXJzLCBlbWJlZGRlZC DyevCKsSR3a1fiePv9WVH5D wQeMjk6IGKfkwShb8DoePh3 gIFxDZHacdCsZNqnCSPrd1F rXHBhciANClByZXBhcmVkID Fnw4beUHEgZBbdJUbtWECba hFdEOPkoD67ks5heWMrzuim ZHklSNPctiXRZbjfu6qiYFG 5lNHdozWTHbaoFFPwEKlKj9 EuxSO9SUrng7znDMLaSCRnh rSDKhbcACRaHGKhsKOEv1Hr MCANClxjZjBcZnMyMiANClx ynQzqJxZiqZJqOfA1OKTomK NwTWT1TS6hrYloBJHiY9TyL 7ZfcqY1HPBftgWNVqgvQAZn IA0KfQ== Disclaimer (test code = [id number]) v5ckjQDrHSXtg4cpCULiaKH uZzEwMzNcZnRuYmpcdWMxIH atgzBfUNzjd7VoM9RbKjCfQ FxhbnNpXGRlZmxhbmcxMDMz LLF4awCpSBVnALlsDFMvNZv bFk0fuZCqlTncQgHlAWXfm7 ynssOCUKzmFhRxB385CREgH Ujft4vgh2PnZPVkoROvb2U8 AACXkukbdKm3o3spOySxAqA 6xDWiQLcyH4vxbzKxtXIoR7 YblNLdvXg4pTviX84dp0D6E luhH1lhMRQdUDAmE7InQP0y NJGpJoa2TGK6FMF3VLQhEGE iB0EoBT8tVJSfwOJnCEd7s5 aquEcmWAJaJOA3q7zdDFbuq eSoVU5lpu3avKw2u7zjwgYc XEBkQIBpeCKVPJEuD4FerRr lRl7bnSb1bSarYzlsAOC3Hv y6UF1fhm58krs8qMdiINMbx ketDoA9NRznUZUcdbwdQHz7 IEhhUOWjgPZ0OHVenYYmK2M qISLqFH9avyu7UIY9VXjdBH PcEsV1UVNinXNnGJItaQopI Lkkb323EIG0VbTyAB8zY0Nk y1V9cB6maAXbTWSvuALiIqZ jMSKkcp4dyFNcXJpmd0QmEG H7pdP0gWYtxSYqRTVxQO57M aikj3VnOxtgUJP0NGCwhrIj k4Jxr0daSzPpskKqY4xbY4C yZHJoZWFkXHBnYnJkcmZvb3 Syj6KpdBMubCw9y6gjVCXuA HFqvKiie6hfRWI7QPFvM9Z4 qLDfu2hxLEovFYGpbBP7olJ 6AKJsxHBoN8YuxL7bJAXyCP 0xnhw5a4dlHTE6KTwcSNKdI cO6reV1ARJgpUOcFRBnzAbz EDgxy276QGC1WcSvELLpy1Q wQ3LfhDbvX45ngIlzN55pXB HmgDlzyX9giJfqkH0cAxOgJ nMyNFxxbFxwbGFpblxmMVxm eqSxMPsgurkpLQCyWCqeN4i yItRaGZGggUvuMHstv0BuNQ YxXGNmMlxmczIwIFRoaXMgc gRrz0H3NJ4vaTCxoeGswJIm QYEvv2XihXQpy9SlwJZpLHA iduOnf4KuIHI5XBK3aV2rWI QvylLhuz5oZWM0d9kqPoXWw QSpbcCLDXSkFDt3aQZkZ5Kq J6hrcKTsZaDkO6VvzJDiBKF BZuJuVE5ugTJimrNpIV9dVG S6qnDfOYOpWEEzsb2bHZSvC W93jUGkUYRkfxPoIH9eYmAK dLify2PgfMH1YSE5aA1wZNc hznNsACZuoL8wIDZkYV2eGN n7guWoMBZpz1NvNG1zSSFtk OGqRPU2AJHeu6LyS0KzOYD6 QJMdbJ2sAFPldWAVYA3NSJr zOv6cGNOirjoeN2YhvryiUQ GaNCVSyLAgXKNrgv01JLGgL X3eO4egMYDqTZPkcgLsfKCh k6NaBRGylWC8dDLtFC4MVhZ En72rIYSiMNZPseHfVFKymA hcbWE9adB7rI5rKQuRVNKhY rFxXUgoTTQLKWLug1CjAD4g xJZwXIS9rYBgECFizJQfaoM dYRHshyX8kUNfSYH2TUS6nj 4gIFxwYXJccGFyIFVUTUIgT GKmr7YnyJ5ngZShHAEiSTVw rPHua4BigyJlVZJhNKZuRRP tsZ1dD2KySXauYn0nBOJdku hkLA9vfg63XB4hdiCeWP5lq qDqWD29ipUuR9lFWZqnjY4n hVXaJs1foRRlpDtkSBJlyHZ sJAwzlLswhZVlhWiuRv4rXM xwYXJccGFyIEFwcHJvcHJpY SVpsJnvfkHcJ5TxxfDfeY5c mBAfneCnSV3pTY0kF4Q2tVT kPKIwokEyl0rgHBrtglBkPi ChbtZvEHQmUGblFDNck7LrS AeyVDP2AEteohIaljCyhNYs bmcgSCZFLCBTcGVjaWFsIFN 8REgtbeHtsqFlRT6siM8kwN thwW6zxVGzuTV8biwrTJJaR XAtdTqtEAUkDU0ajOHiTNBk aoJFwWvnlJLazD3gC8MgREN yYXTcjr9mUVQlcF7mJUauz7 VydmljZXMgYXJlIHBlcmZvc t2dSXXeaNCNKG0PUVsmtJBf e9FuorXzQ8xOUEM4MZIqCkT wMjgxKSBleGNlcHQgYXMgbm 57XVFnxG7ovJmbEPAilV7pw P0dxWedoF7tGtFsXxAxMcxx WE4lWYTgA3qcjEMqFFDjESV gD5yzYyGjqJ9wiXcqMaxsvo QcGSJzoh68 Embedded Images (test code = [id number]) [id number] 18:47:23* Test Item Value Reference Range Interpretation Comme nts Case Report (test code = [id number]) Non-Gynecologic Cytology ?Case: [id number] ?Authorizing Provider: ?Leo Champagne MD Collected: ? 04/01/2024 1438 ?Ordering Location: ? ? Medicine ([facility]) ? Received: ?04/01/2024 1620 ?Pathologist: ? Dotty Stringer, ? MD ? Specimen: ? ?PLEURAL, LEFT, THORACENTESIS FLUID ? Final Diagnosis (test code = [id number]) s9kweCLqFJPuw1jiMQQaxMV uZzEwMzNcZnRuYmpcdWMxIH qxhwIiDIpzxNqiZHG7RTIpD C6eePdeaDr6nKjaZQDoeyC4 rUXkHRvio8jyZYZ3p1utnob bUQBfHIdsNq1zlDNheBioNn IzHYHpOAc5eE35MLVpzS7kg MHzDQe7RQManQVbauXpKeSh FAOluLRzmPH0ISMiTL8hkev hOEqmCBgkLDEdjuN3DWQqcS NvV8PiJMFcUS3rzyjdTUV2N IziVFRwEAV4EmPmOTFtc2Ij vzw8DtVvgFAgZPranJAbkxn mczIwXHBhclxiIEEuIFBMRV VSQSwgTEVGVDsgVEhPUkFDR Y9NBEHSBoWXHJPUIZQSVrZp Y7AZAPMXKT7NRkjzXRYrquN vFCVuIS2bUvCPAAAFDShXZg YZPTFIBLDTC9HGLHCJGwCKY HXGZ3GLMHjKBGTEVpMEZt1L LSByG1PSQOAKNC6IAoVkQHm wYXJcYjBcZnMyMlxwYXIgRm R7sJ2sUHdvKjDtBWEJDyNJT FxwYXJccGFyfXtccnRmMVxz v9NrI6NxSgHaLAgqjkSfLBT fQfmvosdqNRDtYDS6diGeQM RoAGjiUXAjOZplHn6qxGXsh KyaGdJmDBHaf5xlpuEIBRnw MuFbW951GXYoFBmyr1hlx0U wGNPiqRXjq6P5XHSLgrnsoT t0i4bwJvWsKnW9jKPhXQgdE 3jjwnWzzBKuI6AlaMQfyQq9 vOizJ72mq4P6JzcgR9ebIBE aKFPpL1GvPE3nJTTvPyv5DK Z9ZBM0NODiKCDtA6OzUI3fA WOtzLRfYAl1u2fvoPwtNOFt PCD3o2jbRCpycbZ5SR5kyy5 ivWv4i5qvpdIpGGBrBKCmvM YBENOaT1SveCufQa9ufAv3z SgsQgahZYH4Ejz9KL4csp25 iww4jKelJDIxxxreWsP6QXo jMQJynxzhEXb1HJnqUJLscF A0DMLupHTrN5BuAZAeRY9zg sp8XOV6GCuaXDRmDcC6CFYn jQSxTLAfbFjxYXywk997VSH 7GlRuBB4cL7Ijs3T8wY3drT OyKNMxlPXzLgApRXKoav6sg OXuQCxzm1QqEYX2ikQ5iNJy uILdYHCbRF13Kofry9UtEmu mMCJ9JMKidaSaz6Muu6spPk McjoSmM1xdO8QxDCHhBTDgO WRbLiAuubAwt7Dbe0McwCVv oWk6x4boQKUsOBEhiYapr8a iWML4PVDrR5R8cXNer5tzLV pcUDPfyPL7dqH8WWCkgQFvY 6BodV9qFOMwNY1jooc2v2ct SUO3XXezPZXkZuS3vrW5AGP qkQHoFJYlxXcqTFuwn799XY V9VhHrSBQtd1BfF1KwgPnaB 44rlCcyA43jEPRwyXahpL8i lLhrpI3wDhJjRiGbENybnFp wbGFpblxmMVxmczIwXGxhbm kgPCMoLQywO3vpEjAdPJGfg XjwWNwqb4ZoLMLmRCVhPufa czIwXHBhciBJIGhhdmUgcGV xj54hSAzaxBKqOAZjTQbsWH WvtEwkv0MrZ3omTD2uX7Bve FHjsbDybiEgBIllLEHvp7m7 cEBtoTgks4YrpRYxVK27etX uWVUoOMG3DNSin6mpRV81pq txVkFcqK46vnCpepEqJTVqt 3xzN4hvoDWxx5Gif0QeigTp RSoyi3HtTW4uyXHvbsfyiNC 5OWIafLTrjoZbfvY6bEqsDV RcpC1ksA8fxRhunB1tVaKhA xWgCArbDZ5cDJTsW8elmKOf KJDgLYBkM6vvEfWkwM5inOj yPxefscN3BIMvhf47 Final Diagnosis Comment (test code = [id number]) c1fsmQQaBJFjuKHlQPFxZ9p wiiYsVHVvoGFoO0EblamuOK wcUK3xWO1rwXbiwUZzmIEbR ACeBpPll0mpv783oTKzf7mz TCRZmnhjtPl7xHgkH52mj7W 8GqwnF54rwDJiHOW7OTEwBB DngIJbKYNwZZM1WQNzxKFvM 1xvEFUhVY3kolxpLGslEJrp DJJfoOJ8ADXinNKgR0WwSOA sZPpaMDDjein3JsDbSj2fiA VyeTcyMFxwYXJkXHBsYWluX OSmHnHwA0m4s7sgW8daAVNf BVWkpfW6uR7ievIjeF79UJM eHwZ8HUItQZY2IQOkCRMwQO dpU28wkeQpV0LrwSGbbQijy QHwxsKeaFInT7Kxn8t2eLEn uDXtyzUnqv4nWFClRyxxnWE qSEd6yZJyQS68L0rfrJTsqd XqCKRjT7tshx74egTrs9Jfk OgwsVjrK2v3PJWpKO7cQO0r g239zYWpuBUcARGqjNabHlK aaGIeXNYlbqERnU83iw9toS HepnUyLGFiPOQmrxNcnk7cP XDlldIamG0lzaFMEyL8tJTs IGFwcHJvcHJpYXRlIGNvbnR sk6qmXODrFEAht5adu0cgac ywJzivTOqzJ9B4CIExfdtdV PCzXjEiTYHdesOvOKvbAQ5z aXRpdmUgXHBhciAtIENsYXV ktX0oDGqnJR6bqWWvasEmvV McNCEtVBCqS6TcpvS9bZ5zr jtjIMtetNgyL5z4bmJrUPHy tBwuaQoqnRIfGKdmy0hhAOH gLSBUVEYtMTogTmVnYXRpdm OoETcwbYz9HPFhG8AmkFNcQ XJpdHkpXHBhclxwYXIgRmlu KFvvA7TfYCXgGXT1w9YvA8b dhUMnMr7uRA6zyIZixQG5tS BdQ4AcO5tlh09vGVGkk1drs mOnJFKiZDLaSFCymND8IZ2e IHRoZSBjZWxscyBvZiBpbnR lcmVzdCBwcmVjbHVkZXMgZn XfqZkeyuOgrFUlETW3FUNcc rO6eI6iEtGJBHKrNLRey3Fy cGxpbmcgaXMgcmVxdWlyZWQ oGe0jJMWnUaqcvEQ0LWZtsZ Liea5nbSYlOOKcoh1= Clinical Information (test code = 1116424490) Clinical Hx: 59yoF w/ lung mass and unilateral pleural effusion new . Gross Description (test code = 3771168874) a7aayRUpOIRzuAJVGXG9LDX sDJ3zcXarfRe4wEpwPLHalz T4sVXhOKkun5bmPBJ3w0sob hAWQomeOTAnLC7kLEmpCYEn RX1kUjPgXVVqPcZiRCJoiIC figVbQmVhUGFbmYSjoAM7TW TvAF6brbroFDatITisFEAzi oC6ERGvrFGnX8RbFJIxMC4h yflbFJL5ZYZAIisqAm1mfEJ ibHtcZjFcZmNoYXJzZXQwXG Pjd3mwigNUycirxZc0kB5Oj 4awp8prjhAzcXtdbxQgDIwq wqUiutKrHmw5MLR1hZ8VNXD hB1VkNL3Ts5zfKQXifIZuUH K6HYoiw6kzTAldYLF3YAJxF VLxECWiKA8IWkBmMOSiGDDi FXQ0MtW7RDq0QIAXFQIcXLC jKKr0JWH6GUr9TNInJJ8oFJ qfxPPrLBluWfaiMPsiQ254M ChhDEAwC8QaZ7ZtCCciCnAz CYugEPBaNHMuFBkuGGDaZ3Z PSBTrTQA1NHX0EYpgOBr1JX u4VG6HDyNtYNTxXbLiEwB3V uXqSPs3PKanHV7WVUYlHVJ7 GcB6DfLvROU7JoSzWMq9BOT gXFxzcyAzIFxcZmwgXFxuY3 1ccGFyZCANClxwbGFpblxsd HJjaFxmczIyXHBhciANClxw KAIiXZ8AVKQeIVzjFLv4gcF gBJFbEoQnUIZcD92cu1HUi1 XcFP7AIJc2ysDbclNQYfteQ YDdZYtCIT3ePRVSTQQNRYgb TCZEITkyUQrBLcWCUV6GVPQ JUyBGTFVJRFxwYXIgDQpSZW NlaXZlZCBmcmVzaCBpcyAxI ZXzJ2Eyo9NwY3zxQZBtFft2 aWQgXGxpbmUgUHJlcGFyZWQ gMSBzbGlkZXMgKDEgUGFwYW 3dU01aXX63NPF4lA0akDurT GnzKXPbIAysmDZrEL5YUOaz JKZ8gTNrphRZTvqdZeMlNhM cLXYPMp5hLUctLqEjNoGxHo FZEIFERzOtILlLSpC9WSVSY 8KRX3LHXQWKGELcGnnVDPId G3JwKAIvJvKwZgRWOXaKCEH SD2PNRLDuzoQYCwFud8jksP WnSILhsWfsKWViEVfcVB22Z ZCyRVYsSNDrweDpf2KpXZxq isHzwdL8PiQxRkHhSDAnTnO wIGhvdXJzLCBlbWJlZGRlZC UfabRCzOB2j7araMa9QID4K dWeOfm2SODfoyXjx0BtcCx2 oPAaJSXicbUnKQhyLUIyf1G rXHBhciANClByZXBhcmVkID Qwz2ohXKIuRHxcNLrcOGIeb nCiTZSvsM53ev1vvPYgzhry FRhiEFQgkiJAPzcqt2uvVNC 3eCNgwsDRWbyqHHGxAVwAn1 OejLT4FUdon7klYJUrZNIoq rFLZkotQTKlKFYflTVNd2Gf MCANClxjZjBcZnMyMiANClx trVpsZlHrhPCaUwX0SCOsyS PgNAP9PD8krWgyYSNlA8HrS 7LtaoZ7NZNahbMLBiwaCFJz IA0KfQ== Disclaimer (test code = 6120418786) v9rnyGFbFVRvg7hgHNWeqBV uZzEwMzNcZnRuYmpcdWMxIH opgzFzBTqzf9DlQ7SqAsFwV FxhbnNpXGRlZmxhbmcxMDMz TMF5pmKuXCOuTMlnJUSoJEr lEi9sfVNepIydQlQbTPLtd6 tdpxJJPSuaWuTlS249WSQxK Xuwv6pyb7NtIVVitBHaz0A3 PRZLzcrwlOh1s7jvOoXtSxM 7sUVnTAkqJ0kxdmDfvSTlD6 HjjNSlyNn6bWiwA38xw1Q9D ulaF2gfSGLcQSHtY6LnZQ6p PNCjXhi3LMQ1UGU9QBGaIQE hP4ShUC6aZJPzsLPeMYu0c2 ekvQahIVPgAIX3y1zgIRrip iNvCU6fqp1uyYq4b9wxbsKn THIaKLZghNGFTYUlZ2RpeZx aYi6tmKj7dXmyEqhiTRQ2Wp l9ZM6oje44cmt8bFbhASIyv pmdMdY2AMgdPYZulglvMWw6 YNroXWMxkAQ4CIZvvABjE8K qTOYxVK3apfr1DMO9CFsoNK HrKaB1PDRuuBMkTJYnqAtgD Qmbh533NAY3LfCmEE0nM3Fo b5P2mN7wyOSkHASgvHQxYzL wXCJnjz4blSBcOYwmi2WaFM G7feP8fVIdvNShVXPtTQ48P ygym5FlCrgjAYN5WTJrezJc t7Nmh5mdWmNpagZkF2gqP7J yZHJoZWFkXHBnYnJkcmZvb3 Qdt7UdnYNdhZa0o4miWAKlN AFeiCfvu2obNAX4UCXbO8P8 yHTcf7unTIurGOZhmBG3sdY 7DGIdbGCdU8NrbI6dTOVaFZ 6acls4w5nfJRK0HAubOXOeK lS4xzU2KMWxgMGeMEJakKzm NLmtn612ZTD6ThDzILRqj1D hT5SyfKlgH34fsTqkS17mDW NqcLlbrR7edSgcmF9oIcJxA nMyNFxxbFxwbGFpblxmMVxm qgIcUBykhftmNMTeOMqsI0g oApOuBBMykIlqVHvjj5OgID YxXGNmMlxmczIwIFRoaXMgc dHzo3T4LR8hoBBbciBnbYCs MPTux5OwyGVaf7CsiLNgSPB xeaTzn2XhYXV0KSG3cA2lXQ WeheObss3nGYX9j5mxRrCFz ZNlwaNFDKDoLEf1vSPaD2Nm M5gimUUtRkFsX0IwkNJoUVG JCiIrHQ6jwSGfcuUnAF4wIP G2xjXfBUByVOVbij5mUBRyT Y67pZJxZGJxnqNlWW2uUwDR yIqzb8JltIM3EXB0aI5yHZk emmIgBFUbsD3kLWYkYM6nFK c4stBfZEHmj6OwBZ2bTPQmy UCfUZM5EULnb9JeY1MuCPO8 LFLprM7hELIoqEYUOR9TOZq oNp3sHSZryxciU0LxpwtcFU SsNZAJfLNxDGMtwi54YKXsP N2oE0yuSDNaHSYfgvWvsMSr g9YwFAJjfRF7wNSlSB0NTvM Ci22sOARlCEHLkxLpDCOkkZ nvwMP0mtF9aA9sWJmRTONlY xUvYSmePLHOWKUms1RrZM2d sYQkFWP5aIDwDEGghSEoefI vABTebcP1bOMkTMG7ZAY0sy 4gIFxwYXJccGFyIFVUTUIgT RMbx2QcrV9hcKAxZSDjUUZp yVKef2HtchHeXMHaPWPmEWJ yuN4mM7MoMHpoPa5bLSKfrm tnAY4qei13UN5xfsNsIU8vm rFaAV95peYjB0hNYZmvnJ7o iBWhPp7jaNKwaGxdSORrxSD iZDspbHhxsJZdkYcjQs5wAC xwYXJccGFyIEFwcHJvcHJpY NCwrGhwtkQkN0RofkUcfK6d jCZyoiZcUI5mWP0cO2F0wHF wADBusnAte2mbSUqbvsLvOl PifkTuHODoZGdzRLBkg2JuI JahBHK0TLuluuWaanIxcMHb bmcgSCZFLCBTcGVjaWFsIFN 2SJimwsFhjaNvZU3swJ2caP evyY0vrTGelNO6emqvGBNzB UEeqQifXFDtMH8jxSIxRLNl fnRGpEkikCGmxQ3dK6QsKGG oLSWeur1aKBBqaK8aARgua5 VydmljZXMgYXJlIHBlcmZvc a2jOQSusSBGTM6ELPtpgVAm u6YdpqRbH9mXBFM8RWXbBgW wMjgxKSBleGNlcHQgYXMgbm 79MKCetG5tvDtxQUNfoF3mr H8xaOfyrB5qAoWdZpAeUcne FY4yDDGqB1etwRObLQWsYUS pN0rmIsOeaZ7qhHtbTrerwg ZnSOSwmn50 Embedded Images (test code = 6165923626) [facility] [id number] 11:52:38* Test Item Value Reference Range Interpretation Comme [facility] PROTIME PATIENT (test code = 5964-2) 13.3 10.1-12.6 H INR (test code = 6301-6) 1.2 Normal INR <1.1; Warfarin Therapeutic range 2.0 to 3.0 or 2.5 to 3.5, depending upon the indications. Lab Interpretation (test code = 54981-8) [facility]normal [facility] 11:52:38* Test Item Value Reference Range Interpretation Comme [facility] APTT Patient (test code = 3173-2) 37 26-36 H Lab Interpretation (test cod e = 07717-4) [facility]normal [facility] / [id number] 11:52:38* Test Item Value Reference Range Interpretation Comme [facility] PROTIME PATIENT (test code = 5964-2) 13.3 10.1-12.6 H INR (test code = 6301-6) 1.2 Normal INR <1.1; Warfarin Therapeutic range 2.0 to 3.0 or 2.5 to 3.5, depending upon the indications. Lab Interpretation (test code = 33459-9) [facility] 11:52:38* Test Item Value Reference Range Interpretation Comme [facility] APTT Patient (test code = 3173-2) 37 26-36 H Lab Interpretation (test cod e = 27082-2) Abnormal [facility] Metabolic Panel (NA, K, CL, CO2, GLUCOSE, BUN, CREATININE, CA)2024-04-04 11:45:53* Test Item Value Reference Range Interpretation Comme [facility] NA (test code = 3157171166) 131 mmol/L 135-145 L K (test code = 1890678345) 4.4 mmol/L 3.5-5.0 CL (test code = 3979759736) 94 mmol/L 98-108 L CO2 TOTAL (test code = 9512705846) 34 mmol/L 23-31 H AGAP (test code = 3168452722) 3 2-16 BUN (test code = 0346538781) 9 mg/dL 7-23 GLUCOSE (test code = 2977529870) 127 mg/dL 70-110 H CREATININE (test code = 2160-0) 0.51 mg/dL 0.50-1.04 CALCIUM (test code = 1706195614) 8.8 mg/dL 8.6-10.6 eGFR (test code = 00358-4) 106.4 mL/min/1.73m2 CKD-EPI eGFR (2020). Assuming creatinine has been stable day-to-day for at least three months, the eGFR indicates Category G1 (>= 90 mL/min/1.73 m2) Lab Interpretation (test code = 85403-0) Abnormal [facility] Metabolic Panel (NA, K, CL, CO2, GLUCOSE, BUN, CREATININE, CA)2024-04-04 11:45:53* Test Item Value Reference Range Interpretation Comme nts NA (test code = 1759081569) 131 mmol/L 135-145 L K (test code = 1730148215) 4.4 mmol/L 3.5-5.0 CL (test code = 1809999263) 94 mmol/L 98-108 L CO2 TOTAL (test code = 3136462048) 34 mmol/L 23-31 H AGAP (test code = 0216210233) 3 2-16 BUN (test code = 2709753622) 9 mg/dL 7-23 GLUCOSE (test code = 0767358537) 127 mg/dL 70-110 H CREATININE (test code = 2160-0) 0.51 mg/dL 0.50-1.04 CALCIUM (test code = 9124777599) 8.8 mg/dL 8.6-10.6 eGFR (test code = 83976-2) 106.4 mL/min/1.73m2 CKD-EPI eGFR (2020). Assuming creatinine has been stable day-to-day for at least three months, the eGFR indicates Category G1 (>= 90 mL/min/1.73 m2) Lab Interpretation (test code = 07151-5) Abnormal [facility] Metabolic Panel (NA, K, CL, CO2, GLUCOSE, BUN, CREATININE, CA)2024-04-03 10:49:25* Test Item Value Reference Range Interpretation Comme nts NA (test code = 4892312102) 131 mmol/L 135-145 L K (test code = 2331015648) 4.3 mmol/L 3.5-5.0 CL (test code = 4053915491) 95 mmol/L 98-108 L CO2 TOTAL (test code = 4351363573) 36 mmol/L 23-31 H AGAP (test code = 1044274805) 2-16 L BUN (test code = 0972600635) 10 mg/dL 7-23 GLUCOSE (test code = 1243963608) 127 mg/dL 70-110 H CREATININE (test code = 2160-0) 0.46 mg/dL 0.50-1.04 L CALCIUM (test code = 9037871224) 8.7 mg/dL 8.6-10.6 eGFR (test code = 36880-9) 109.0 mL/min/1.73m2 CKD-EPI eGFR (2020). Assuming creatinine has been stable day-to-day for at least three months, the eGFR indicates Category G1 (>= 90 mL/min/1.73 m2) Lab Interpretation (test code = 96935-5) Abnormal [facility] Metabolic Panel (NA, K, CL, CO2, GLUCOSE, BUN, CREATININE, CA)2024-04-03 10:49:25* Test Item Value Reference Range Interpretation Comme nts NA (test code = 9159227666) 131 mmol/L 135-145 L K (test code = 6156519999) 4.3 mmol/L 3.5-5.0 CL (test code = 9579687954) 95 mmol/L 98-108 L CO2 TOTAL (test code = 9203279606) 36 mmol/L 23-31 H AGAP (test code = 8718637366) 2-16 L BUN (test code = 2801400287) 10 mg/dL 7-23 GLUCOSE (test code = 5393137967) 127 mg/dL 70-110 H CREATININE (test code = 2160-0) 0.46 mg/dL 0.50-1.04 L CALCIUM (test code = 7269741389) 8.7 mg/dL 8.6-10.6 eGFR (test code = 51943-9) 109.0 mL/min/1.73m2 CKD-EPI eGFR (2020). Assuming creatinine has been stable day-to-day for at least three months, the eGFR indicates Category G1 (>= 90 mL/min/1.73 m2) Lab Interpretation (test code = 94302-9) [facility]* Test Item Value Reference Range Interpretation Comme nts MAGNESIUM (test code = 4486879839) 2.0 mg/dL 1.7-2.4 Lab Interpretation (test cod e = 52976-8) [facility] 10:48:09* Test Item Value Reference Range Interpretation Comme nts MAGNESIUM (test code = 0491911785) 2.0 mg/dL 1.7-2.4 Lab Interpretation (test cod e = 75354-3) Normal [facility] without [id number] 10:26:43* Test Item Value Reference Range Interpretation Comme nts WBC (test code = 6690-2) 11.93 4.30-11.10 H RBC (test code = 789-8) 3.19 3.93-5.25 L HGB (test code = 718-7) 8.8 g/dL 11.6-15.0 L HCT (test code = 4544-3) 27.9 % 35.7-45.2 L MCH (test code = 785-6) 27.6 pg 25.9-32.8 MCV (test code = 787-2) 87.5 fL 80.6-95.5 MCHC (test code = 786-4) 31.5 g/dL 31.6-35.1 L PLT (test code = 777-3) 532 166-358 H MPV (test code = 49881-9) 9.6 fL 9.5-12.9 RDW-CV (test code = 788-0) 13.6 % 12.0-15.5 RDW-SD (test code = 38634-7) 43.2 fL 39.0-49.9 NRBC x10^3 (test code = 1004022996) See_Comment [Automated messa ge] The system which generated this result transmitted reference range: 10*3/?L. The reference range was not used to interpret this result as normal/abnormal. NRBC/100 WBC (test code = 9807853071) 0.0 0.0-10.0 IPF % (test code = 9104820079) Lab Interpretation (test code = 06991-8) Abnormal [facility] without Bydi3336-24-78 10:26:43* Test Item Value Reference Range Interpretation Comme nts WBC (test code = 6690-2) 11.93 4.30-11.10 H RBC (test code = 789-8) 3.19 3.93-5.25 L HGB (test code = 718-7) 8.8 g/dL 11.6-15.0 L HCT (test code = 4544-3) 27.9 % 35.7-45.2 L MCH (test code = 785-6) 27.6 pg 25.9-32.8 MCV (test code = 787-2) 87.5 fL 80.6-95.5 MCHC (test code = 786-4) 31.5 g/dL 31.6-35.1 L PLT (test code = 777-3) 532 166-358 H MPV (test code = 10198-7) 9.6 fL 9.5-12.9 RDW-CV (test code = 788-0) 13.6 % 12.0-15.5 RDW-SD (test code = 60099-3) 43.2 fL 39.0-49.9 NRBC x10^3 (test code = 0666049649) See_Comment [Automated [employer] ge] The system which generated this result transmitted reference range: 10*3/?L. The reference range was not used to interpret this result as normal/abnormal. NRBC/100 WBC (test code = 5234809869) 0.0 0.0-10.0 IPF % (test code = 0337277084) Lab Interpretation (test code = 42858-9) [facility] 22:34:26* Test Item Value Reference Range Interpretation Comme nts Height (test code = 1960825378) 64 in Weight (test code = 5120883715) 197 lbs Systolic BP (test code = 6166390629) 104 mmHg Diastolic BP (test code = 2374932281) 60 mmHg Heart Rate (test code = 9988162116) 80 bpm BSA (test code = 7597937116) 1.94 m2 LVOT diameter (test code = 1279031675) 2.03 cm LVOT area (test code = 5217625254) 3.30 cm2 Ao root diam (test code = 3217429461) 3.10 cm Aortic root (test code = 2833439392) 3.1 cm Ao root annulus (test code = 8410488141) 3.1 cm LA size (test code = 0889600458) 3.5 cm TR Peak Mahogany (test code = 5562942663) 294.5 cm/s Triscuspid Valve Regurgitation Peak Gradient (test code = 7194051489) 34.7 mmHg MV Peak E Mahogany (test code = 1573932254) 88.9 cm/s MV Peak A Mahogany (test code = 6521817003) 110.9 cm/s E/A ratio (test code = 1133863425) 0.80 ratio E wave decelartion time (test code = 6473243897) 0.25 s MV Prop V (test code = 7209149228) 48.80 cm/s LAV(MOD-sp4) (test code = 9315500787) 28.60 mL Tapse (test code = 8686154632) 2.6 cm LVOT stroke volume (test code = 7071568501) 73.90 cm3 LVOT peak mahoagny (test code = 4673499560) 144.2 cm/s LVOT mn grad (test code = 8405349354) 3.5 mmHg AV LVOT peak gradient (test code = 3715351849) 8.3 mmHg LVOT peak VTI (test code = 0959054272) 22.7 cm LV V1 mean (test code = 3578549650) 86.10 cm/s Ao peak mahogany (test code = 7962602823) 152.0 cm/s AV area peak mahogany (test code = 0440151768) 3.1 cm2 Ao max PG (test code = 0795165386) 9.20 mm[Hg] AV peak gradient (test code = 0864683092) 9.2 mmHg LA Volume Index (BP) (test code = 8383844566) 13.8 mL/m2 LA volume (BP) (test code = 4073398708) 26.8 mL LAV(MOD-sp2) (test code = 5478606355) 22.00 mL LVIDD (test code = 1275907180) 4.90 cm Left Ventricular End Diastolic Volume by Teichholz Method (test code = 6765280) 113.1 mL IVS (test code = 8192373830) 0.70 cm Interventricular Septum Diastolic Thickness by 2D (test code = 0250792) 0.70 cm LVPWD (test code = 2653028546) 0.83 cm PW (test code = 1509182728) 0.83 cm 0.6-1.1 EF(Teich) (test code = 2090139630) 62.10 % LVIDS (test code = 4505883607) 3.30 cm Left Ventricular End Systolic Volume by Teichholz Method (test code = 9154378) 42.8 mL FS (test code = 1890881258) 34 % EF - 2D (test code = 38101174) 62.10 % Radiology Study observation (narrative) (test code = 33739-0) GIANA (test code = GIANA) ?Left?Ventricle: Left ventricle size is normal. Normal wall thickness. Normal wall motion. Normal systolic function with a visually estimated EF of 60 - 65%. Normal diastolic function. ?Right?Ventricle: Right ventricle size is normal. Normal systolic function. TAPSE is 2.6 cm. ?Left?Atrium: Left atrium size is normal and compressed. ?Tricuspid?Valve: Mild transvalvular regurgitation. Right ventricular systolic pressure is 30-35 mmHg. ?RA pressure is 0-5 mmHg. ?IVC/SVC: IVC diameter is less than or equal to 21 mm and decreases greater than 50% during inspiration; therefore the estimated right atrial pressure is normal (~0-5 mmHg). ?Pericardium: Small pericardial effusion present. No indication of cardiac tamponade. Left pleural effusion. Left VentricleLeft ventricle size is normal. Normal wall thickness. Normal wall motion. Normal systolic function with a visually estimated EF of 60 - 65%. Normal diastolic function.Right VentricleRight ventricle size is normal. Normal systolic function. TAPSE is 2.6 cm.Left AtriumLeft atrium size is normal and compressed.Right AtriumRight atrium size is normal.IVC/SVCIVC diameter is less than or equal to 21 mm and decreases greater than 50% during inspiration; therefore the estimated right atrial pressure is normal (~0-5 mmHg).Mitral ValveMitral valve structure is normal. Trace transvalvular regurgitation. No stenosis.Tricuspid ValveTricuspid valve structure is normal. Mild transvalvular regurgitation. Right ventricular systolic pressure is 30-35 mmHg. RA pressure is 0-5 mmHg. No stenosis.Aortic ValveAortic valve opens well. No transvalvular regurgitation. No hemodynamically significant .Pulmonic ValveNot well visualized. Trace transvalvular regurgitation. No stenosis.PericardiumSm all pericardial effusion present. No indication of cardiac tamponade. Left pleural effusion.Study DetailsA complete echocardiogram was performed using 2D, color flow Doppler and spectral Doppler. 2 mL of Definity ultrasound enhancing agent used. [facility] 22:34:26* Test Item Value Reference Range Interpretation Comme nts Height (test code = 4371536856) 64 in Weight (test code = 6115673696) 197 lbs Systolic BP (test code = 5269304230) 104 mmHg Diastolic BP (test code = 9533005445) 60 mmHg Heart Rate (test code = 4891781387) 80 bpm BSA (test code = 9803036233) 1.94 m2 LVOT diameter (test code = 3578206604) 2.03 cm LVOT area (test code = 1707158907) 3.30 cm2 Ao root diam (test code = 7772183007) 3.10 cm Aortic root (test code = 5049846041) 3.1 cm Ao root annulus (test code = 4913267424) 3.1 cm LA size (test code = 9740071324) 3.5 cm TR Peak Mahogany (test code = 5334556415) 294.5 cm/s Triscuspid Valve Regurgitation Peak Gradient (test code = 5753356741) 34.7 mmHg MV Peak E Mahogany (test code = 3753678103) 88.9 cm/s MV Peak A Mahogany (test code = 5945422514) 110.9 cm/s E/A ratio (test code = 4144097034) 0.80 ratio E wave decelartion time (test code = 4062442241) 0.25 s MV Prop V (test code = 9798824970) 48.80 cm/s LAV(MOD-sp4) (test code = 0028959175) 28.60 mL Tapse (test code = 5520874363) 2.6 cm LVOT stroke volume (test code = 0387762919) 73.90 cm3 LVOT peak mahogany (test code = 1114105911) 144.2 cm/s LVOT mn grad (test code = 9247634818) 3.5 mmHg AV LVOT peak gradient (test code = 3371963622) 8.3 mmHg LVOT peak VTI (test code = 2364078130) 22.7 cm LV V1 mean (test code = 1790342232) 86.10 cm/s Ao peak mahogany (test code = 1300678595) 152.0 cm/s AV area peak mahogany (test code = 9912770336) 3.1 cm2 Ao max PG (test code = 0890458024) 9.20 mm[Hg] AV peak gradient (test code = 4601497863) 9.2 mmHg LA Volume Index (BP) (test code = 1227687003) 13.8 mL/m2 LA volume (BP) (test code = 7932073080) 26.8 mL LAV(MOD-sp2) (test code = 8717727854) 22.00 mL LVIDD (test code = 1236815781) 4.90 cm Left Ventricular End Diastolic Volume by Teichholz Method (test code = 2227928) 113.1 mL IVS (test code = 7570464328) 0.70 cm Interventricular Septum Diastolic Thickness by 2D (test code = 4676014) 0.70 cm LVPWD (test code = 9911216830) 0.83 cm PW (test code = 0609548451) 0.83 cm 0.6-1.1 EF(Teich) (test code = 3230345233) 62.10 % LVIDS (test code = 7501589936) 3.30 cm Left Ventricular End Systolic Volume by Teichholz Method (test code = 9421437) 42.8 mL FS (test code = 0773210365) 34 % EF - 2D (test code = 23090182) 62.10 % Radiology Study observation (narrative) (test code = 23776-4) GIANA (test code = GIANA) ?Left?Ventricle: Left ventricle size is normal. Normal wall thickness. Normal wall motion. Normal systolic function with a visually estimated EF of 60 - 65%. Normal diastolic function. ?Right?Ventricle: Right ventricle size is normal. Normal systolic function. TAPSE is 2.6 cm. ?Left?Atrium: Left atrium size is normal and compressed. ?Tricuspid?Valve: Mild transvalvular regurgitation. Right ventricular systolic pressure is 30-35 mmHg. ?RA pressure is 0-5 mmHg. ?IVC/SVC: IVC diameter is less than or equal to 21 mm and decreases greater than 50% during inspiration; therefore the estimated right atrial pressure is normal (~0-5 mmHg). ?Pericardium: Small pericardial effusion present. No indication of cardiac tamponade. Left pleural effusion. Left VentricleLeft ventricle size is normal. Normal wall thickness. Normal wall motion. Normal systolic function with a visually estimated EF of 60 - 65%. Normal diastolic function.Right VentricleRight ventricle size is normal. Normal systolic function. TAPSE is 2.6 cm.Left AtriumLeft atrium size is normal and compressed.Right AtriumRight atrium size is normal.IVC/SVCIVC diameter is less than or equal to 21 mm and decreases greater than 50% during inspiration; therefore the estimated right atrial pressure is normal (~0-5 mmHg).Mitral ValveMitral valve structure is normal. Trace transvalvular regurgitation. No stenosis.Tricuspid ValveTricuspid valve structure is normal. Mild transvalvular regurgitation. Right ventricular systolic pressure is 30-35 mmHg. RA pressure is 0-5 mmHg. No stenosis.Aortic ValveAortic valve opens well. No transvalvular regurgitation. No hemodynamically significant .Pulmonic ValveNot well visualized. Trace transvalvular regurgitation. No stenosis.PericardiumSm all pericardial effusion present. No indication of cardiac tamponade. Left pleural effusion.Study DetailsA complete echocardiogram was performed using 2D, color flow Doppler and spectral Doppler. 2 mL of Definity ultrasound enhancing agent used. [facility] (ALB,T.PRO,BILI T,BU/BC,ALT,AST,ALK PHOS)2024-04-02 15:08:12* Test Item Value Reference Range Interpretation Comme nts TOTAL BILI (test code = 1182471014) 0.4 mg/dL 0.1-1.1 BILI UNCON (test code = 0204347296) 0.0 mg/dL 0.1-1.1 L BILI CONJ (test code = 1050619381) 0.0 mg/dL 0.0-0.3 T PROTEIN (test code = 7482754252) 7.0 g/dL 6.3-8.2 ALBUMIN (test code = 6749907586) 3.3 g/dL 3.5-5.0 L ALK PHOS (test code = 6393237826) 127 U/L 34-122 H ALTv (test code = 1742-6) 11 U/L 5-35 AST(SGOT) (test code = 8588791333) 36 U/L 13-40 Lab Interpretation (test cod e = 45380-8) [facility]normal [facility] (ALB,T.PRO,BILI T,BU/BC,ALT,AST,ALK PHOS)2024-04-02 15:08:12* Test Item Value Reference Range Interpretation Comme nts TOTAL BILI (test code = 4825247018) 0.4 mg/dL 0.1-1.1 BILI UNCON (test code = 9428429667) 0.0 mg/dL 0.1-1.1 L BILI CONJ (test code = 8845707911) 0.0 mg/dL 0.0-0.3 T PROTEIN (test code = 4590660074) 7.0 g/dL 6.3-8.2 ALBUMIN (test code = 6340244018) 3.3 g/dL 3.5-5.0 L ALK PHOS (test code = 6066353593) 127 U/L 34-122 H ALTv (test code = 1742-6) 11 U/L 5-35 AST(SGOT) (test code = 5237029038) 36 U/L 13-40 Lab Interpretation (test cod e = 13985-6) Abnormal [facility] Metabolic Panel (NA, K, CL, CO2, GLUCOSE, BUN, CREATININE, CA)2024-04-02 05:54:18* Test Item Value Reference Range Interpretation Comme nts NA (test code = 8886283966) 136 mmol/L 135-145 K (test code = 7850170120) 3.7 mmol/L 3.5-5.0 CL (test code = 0351154011) 96 mmol/L 98-108 L CO2 TOTAL (test code = 2695857308) 38 mmol/L 23-31 H AGAP (test code = 2270524172) 2 2-16 BUN (test code = 0237068706) 14 mg/dL 7-23 GLUCOSE (test code = 8528179609) 138 mg/dL 70-110 H CREATININE (test code = 2160-0) 0.49 mg/dL 0.50-1.04 L CALCIUM (test code = 0718966002) 8.8 mg/dL 8.6-10.6 eGFR (test code = 99418-6) 107.4 mL/min/1.73m2 CKD-EPI eGFR (2020). Assuming creatinine has been stable day-to-day for at least three months, the eGFR indicates Category G1 (>= 90 mL/min/1.73 m2) Lab Interpretation (test code = 24446-8) Abnormal [facility] [id number] 05:54:18* Test Item Value Reference Range Interpretation Comme nts MAGNESIUM (test code = 5690705331) 2.0 mg/dL 1.7-2.4 Lab Interpretation (test cod e = 60559-7) Normal [facility] Metabolic Panel (NA, K, CL, CO2, GLUCOSE, BUN, CREATININE, CA)2024-04-02 05:54:18* Test Item Value Reference Range Interpretation Comme nts NA (test code = 4954429428) 136 mmol/L 135-145 K (test code = 3624958818) 3.7 mmol/L 3.5-5.0 CL (test code = 2710268249) 96 mmol/L 98-108 L CO2 TOTAL (test code = 8010340328) 38 mmol/L 23-31 H AGAP (test code = 3994429734) 2 2-16 BUN (test code = 5312142622) 14 mg/dL 7-23 GLUCOSE (test code = 4772141876) 138 mg/dL 70-110 H CREATININE (test code = 2160-0) 0.49 mg/dL 0.50-1.04 L CALCIUM (test code = 4949795075) 8.8 mg/dL 8.6-10.6 eGFR (test code = 26926-9) 107.4 mL/min/1.73m2 CKD-EPI eGFR (2020). Assuming creatinine has been stable day-to-day for at least three months, the eGFR indicates Category G1 (>= 90 mL/min/1.73 m2) Lab Interpretation (test code = 67891-6) Abnormal [facility] [id number] 05:54:18* Test Item Value Reference Range Interpretation Comme nts MAGNESIUM (test code = 7017468259) 2.0 mg/dL 1.7-2.4 Lab Interpretation (test cod e = 44121-3) Normal [facility] with Rqyxwcelvqma0084-36-11 05:28:16* Test Item Value Reference Range Interpretation Comme nts WBC (test code = 6690-2) 13.14 4.30-11.10 H RBC (test code = 789-8) 3.38 3.93-5.25 L HGB (test code = 718-7) 9.2 g/dL 11.6-15.0 L HCT (test code = 4544-3) 30.3 % 35.7-45.2 L MCV (test code = 787-2) 89.6 fL 80.6-95.5 MCH (test code = 785-6) 27.2 pg 25.9-32.8 MCHC (test code = 786-4) 30.4 g/dL 31.6-35.1 L RDW-SD (test code = 89985-9) 44.4 fL 39.0-49.9 RDW-CV (test code = 788-0) 13.4 % 12.0-15.5 PLT (test code = 777-3) 660 166-358 H MPV (test code = 79265-5) 9.6 fL 9.5-12.9 NRBC/100 WBC (test code = 6285521274) 0.0 0.0-10.0 NRBC x10^3 (test code = 6233936263) See_Comment [Automated message] The system which generated this result transmitted reference range: 10*3/?L. The reference range was not used to interpret this result as normal/abnormal. GRAN MAT (NEUT) % (test code = 770-8) 81.2 % IMM GRAN % (test code = 7676041463) 0.60 % LYMPH % (test code = 736-9) 7.7 % MONO % (test code = 5905-5) 8.3 % EOS % (test code = 713-8) 1.5 % BASO % (test code = 706-2) 0.7 % GRAN MAT x10^3(ANC) (test code = 1481539757) 10.67 10*3/uL 1.88-7.09 H IMM GRAN x10^3 (test code = 3378561274) 0.08 10*3/uL 0.00-0.06 H LYMPH x10^3 (test code = 731-0) 1.01 10*3/uL 1.32-3.29 L MONO x10^3 (test code = 742-7) 1.09 10*3/uL 0.33-0.92 H EOS x10^3 (test code = 711-2) 0.20 10*3/uL 0.03-0.39 BASO x10^3 (test code = 704-7) 0.09 10*3/uL 0.01-0.07 H Lab Interpretation (test code = 07189-6) Abnormal [facility] with Iolwtbwsnjti6629-31-46 05:28:16* Test Item Value Reference Range Interpretation Comme nts WBC (test code = 6690-2) 13.14 4.30-11.10 H RBC (test code = 789-8) 3.38 3.93-5.25 L HGB (test code = 718-7) 9.2 g/dL 11.6-15.0 L HCT (test code = 4544-3) 30.3 % 35.7-45.2 L MCV (test code = 787-2) 89.6 fL 80.6-95.5 MCH (test code = 785-6) 27.2 pg 25.9-32.8 MCHC (test code = 786-4) 30.4 g/dL 31.6-35.1 L RDW-SD (test code = 72300-8) 44.4 fL 39.0-49.9 RDW-CV (test code = 788-0) 13.4 % 12.0-15.5 PLT (test code = 777-3) 660 166-358 H MPV (test code = 13633-5) 9.6 fL 9.5-12.9 NRBC/100 WBC (test code = 5483939062) 0.0 0.0-10.0 NRBC x10^3 (test code = 5124163567) See_Comment [Automated message] The system which generated this result transmitted reference range: 10*3/?L. The reference range was not used to interpret this result as normal/abnormal. GRAN MAT (NEUT) % (test code = 770-8) 81.2 % IMM GRAN % (test code = 1687783517) 0.60 % LYMPH % (test code = 736-9) 7.7 % MONO % (test code = 5905-5) 8.3 % EOS % (test code = 713-8) 1.5 % BASO % (test code = 706-2) 0.7 % GRAN MAT x10^3(ANC) (test code = 6669616799) 10.67 10*3/uL 1.88-7.09 H IMM GRAN x10^3 (test code = 0017318082) 0.08 10*3/uL 0.00-0.06 H LYMPH x10^3 (test code = 731-0) 1.01 10*3/uL 1.32-3.29 L MONO x10^3 (test code = 742-7) 1.09 10*3/uL 0.33-0.92 H EOS x10^3 (test code = 711-2) 0.20 10*3/uL 0.03-0.39 BASO x10^3 (test code = 704-7) 0.09 10*3/uL 0.01-0.07 H Lab Interpretation (test code = 20608-9) [facility]normal [facility] Btlj0715-84-38 23:39:49* Test Item Value Reference Range Interpretation Comme nts BF SEGS% (test code = 95379-9) 10 % BF LYMPHS% (test code = 93150-8) 73 % BF REACTIVE LYMPHS % (test code = 95952-1) 3 % BF MACROPHAGE% (test code = 27766-9) 5 % BF EOS% (test code = 13108-4) 2 % BF OTHR CELLS% (test code = 7599530439) 7 % Malignant Cells.Atypical cells seen. Correlate with Cytology results if available. If not, recommend ordering Cytology testing. BF #CELLS CNTD (test code = 0606383556) 100 cells/uL GIANA (test code = GIANA) Reviewed by Rubens Saunders M.D., Director of HEMATOPATHOLOGY. [facility] Uzcj1430-16-28 23:39:49* Test Item Value Reference Range Interpretation Comme nts BF SEGS% (test code = 66147-8) 10 % BF LYMPHS% (test code = 87165-9) 73 % BF REACTIVE LYMPHS % (test code = 14810-6) 3 % BF MACROPHAGE% (test code = 81663-7) 5 % BF EOS% (test code = 57026-1) 2 % BF OTHR CELLS% (test code = 2643286488) 7 % Malignant Cells.Atypical cells seen. Correlate with Cytology results if available. If not, recommend ordering Cytology testing. BF #CELLS CNTD (test code = 1985586086) 100 cells/uL GAINA (test code = GIANA) Reviewed by Rubens Saunders M.D., Director of HEMATOPATHOLOGY. [facility] 1 [id number] 21:29:55EXAM: XR CHEST 1 VW COMPARISON: CT chest and radiograph 03/31/2024. HISTORY: Postthoracentesis. FINDINGS: Normal right lung volume. Left lung complete whiteout likely related toleft lung collapse secondary to the known left hilar mass and large leftpleural effusion. Small right pleural effusions. No pneumothorax. The cardiac silhouette is obliterated on the left. No acute osseous abnormality in thevisualized skeleton.[facility] 1 [id number] 21:29:55EXAM: XR CHEST 1 VW COMPARISON: CT chest and radiograph 03/31/2024. HISTORY: Postthoracentesis. FINDINGS: Normal right lung volume. Left lung complete whiteout likely related toleft lung collapse secondary to the known left hilar mass and large leftpleural effusion. Small right pleural effusions. No pneumothorax. The cardiac silhouette is obliterated on the left. No acute osseous abnormality in thevisualized skeleton.[facility] LDH Total Body Xpzyu6605-80-91 21:11:14* Test Item Value Reference Range Interpretation Comme nts LDH BF (test code = 4536759902) 541 U/L UNSPUN BODY FLUID COLOR (test code = 9482982907) Bloody UNSPUN BODY FLUID CLARITY (test code = 2510638425) Cloudy SPUN BODY FLUID COLOR (test code = 5982066687) Yellow SPUN BODY FLUID CLARITY (test code = 6507759871) Clear Sediment (test code = 7257603380) The sediment volume is 0.1 mLs of the total fluid volume of 3 mLs and its color is red. GIANA (test code = GIANA) Test developed and characteristics determined by [facility]. [facility] Body Qzkpb9826-79-44 21:11:14* Test Item Value Reference Range Interpretation Comme nts LDH BF (test code = 6115236435) 541 U/L UNSPUN BODY FLUID COLOR (test code = 3749737185) Bloody UNSPUN BODY FLUID CLARITY (test code = 4034366434) Cloudy SPUN BODY FLUID COLOR (test code = 1147435154) Yellow SPUN BODY FLUID CLARITY (test code = 6385451917) Clear Sediment (test code = 2811938328) The sediment volume is 0.1 mLs of the total fluid volume of 3 mLs and its color is red. GIANA (test code = GIANA) Test developed and characteristics determined by [facility]. [facility] Protein Body [id number] 21:11:03* Test Item Value Reference Range Interpretation Comme nts T.PROT BF (test code = 5053295803) 4200.0 mg/dL UNSPUN BODY FLUID COLOR (test code = 9850449586) Bloody UNSPUN BODY FLUID CLARITY (test code = 5989658880) Cloudy SPUN BODY FLUID COLOR (test code = 8115859900) Yellow SPUN BODY FLUID CLARITY (test code = 3431281102) Clear Sediment (test code = 5748324423) The sediment volume is 0.1 mLs of the total fluid volume of 3 mLs and its color is red. GIANA (test code = GIANA) Test developed and characteristics determined by [facility]. [facility] Protein Body Gjory7787-97-12 21:11:03* Test Item Value Reference Range Interpretation Comme nts T.PROT BF (test code = 6649219189) 4200.0 mg/dL UNSPUN BODY FLUID COLOR (test code = 5458721126) Bloody UNSPUN BODY FLUID CLARITY (test code = 0022851403) Cloudy SPUN BODY FLUID COLOR (test code = 3917875051) Yellow SPUN BODY FLUID CLARITY (test code = 9539278480) Clear Sediment (test code = 5410289566) The sediment volume is 0.1 mLs of the total fluid volume of 3 mLs and its color is red. GIANA (test code = GIANA) Test developed and characteristics determined by [facility]. [facility] Body Utygg5292-43-89 21:10:53* Test Item Value Reference Range Interpretation Comme [facility] GLUCOSE BF (test code = 2181766880) 117 mg/dL UNSPUN BODY FLUID COLOR (test code = 4016348991) Bloody UNSPUN BODY FLUID CLARITY (test code = 9121822905) Cloudy SPUN BODY FLUID COLOR (test code = 2564520909) Yellow SPUN BODY FLUID CLARITY (test code = 5138726502) Clear Sediment (test code = 1530062410) The sediment volume is 0.1 mLs of the total fluid volume of 3 mLs and its color is red. GIANA (test code = GIANA) Test developed and characteristics determined by [facility]. [facility] HendersonGlucose Body Fdfuo4357-48-23 21:10:53* Test Item Value Reference Range Interpretation Comme nts GLUCOSE BF (test code = 3286178624) 117 mg/dL UNSPUN BODY FLUID COLOR (test code = 6603447570) Bloody UNSPUN BODY FLUID CLARITY (test code = 6032198333) Cloudy SPUN BODY FLUID COLOR (test code = 2008877135) Yellow SPUN BODY FLUID CLARITY (test code = 2317884544) Clear Sediment (test code = 2611010832) The sediment volume is 0.1 mLs of the total fluid volume of 3 mLs and its color is red. GIANA (test code = GIANA) Test developed and characteristics determined by [facility]. [facility] HendersonAmylase Body [id number] 21:10:48* Test Item Value Reference Range Interpretation Comme nts AMYLASE BF (test code = 0801998491) 87 U/L UNSPUN BODY FLUID COLOR (test code = 2073618620) Bloody UNSPUN BODY FLUID CLARITY (test code = 0246119108) Cloudy SPUN BODY FLUID COLOR (test code = 6541090323) Yellow SPUN BODY FLUID CLARITY (test code = 4369231991) Clear Sediment (test code = 0586301165) The sediment volume is 0.1 mLs of the total fluid volume of 3 mLs and its color is red. GIANA (test code = GIANA) Test developed and characteristics determined by [facility]. [facility] HendersonAmylase Body [id number] 21:10:48* Test Item Value Reference Range Interpretation Comme nts AMYLASE BF (test code = 0837183563) 87 U/L UNSPUN BODY FLUID COLOR (test code = 6416017496) Bloody UNSPUN BODY FLUID CLARITY (test code = 9380767973) Cloudy SPUN BODY FLUID COLOR (test code = 8515991307) Yellow SPUN BODY FLUID CLARITY (test code = 3562791058) Clear Sediment (test code = 3971232523) The sediment volume is 0.1 mLs of the total fluid volume of 3 mLs and its color is red. GIANA (test code = GIANA) Test developed and characteristics determined by [facility]. [facility] Direct [id number] 20:50:09* Test Item Value Reference Range Interpretation Comme nts BF COLOR (test code = 8689767230) Slightly Bloody BF WBC Count (test code = 8357722419) 5073 See_Comment [Automated messa ge] The system which generated this result transmitted reference range: /?L. The reference range was not used to interpret this result as normal/abnormal. BF RBC Count (test code = 6841602110) 397482 See_Comment [Automated messa ge] The system which generated this result transmitted reference range: /?L. The reference range was not used to interpret this result as normal/abnormal. GIANA (test code = GIANA) The reference range and other method performance specifications have not been established for this body fluid. ?The test results must be integrated into the clinical context for interpretation. [facility] Direct [id number] 20:50:09* Test Item Value Reference Range Interpretation Comme nts BF COLOR (test code = 5961116759) Slightly Bloody BF WBC Count (test code = 5487900985) 5073 See_Comment [Automated messa ge] The system which generated this result transmitted reference range: /?L. The reference range was not used to interpret this result as normal/abnormal. BF RBC Count (test code = 3880483339) 383919 See_Comment [Automated messa ge] The system which generated this result transmitted reference range: /?L. The reference range was not used to interpret this result as normal/abnormal. GIANA (test code = GIANA) The reference range and other method performance specifications have not been established for this body fluid. ?The test results must be integrated into the clinical context for interpretation. [facility] HendersonFerritin [id number] 20:27:27* Test Item Value Reference Range Interpretation Comme nts FERRITIN (test code = 0046510406) 1150.0 ng/mL 11.0-264.0 H GIANA (test code = GIANA) Biotin has been reported to cause a negative bias, interpret results relative to patient's use of biotin. Lab Interpretation (test code = 12770-7) Abnormal [facility] Ljryy7176-49-45 20:27:27* Test Item Value Reference Range Interpretation Comme nts FERRITIN (test code = 1341689660) 1150.0 ng/mL 11.0-264.0 H GIANA (test code = GIANA) Biotin has been reported to cause a negative bias, interpret results relative to patient's use of biotin. Lab Interpretation (test code = 13308-5) Abnormal [facility] Henderson[facility]cosylated Hemoglobin [id number] 18:46:22 * Test Item Value Reference Range Interpretation Comme nts HGB A1C (test code = 4548-4) 6.2 % 4.0-5.7 H GIANA (test code = GIANA) Reference RangesNormal: <5.7%Prediabetes: 5.7 - 6.4%Diabetes: > 6.5% Lab Interpretation (test code = 39906-9) Abnormal [facility] Henderson[facility]cosylated Hemoglobin [id number] 18:46:22 * Test Item Value Reference Range Interpretation Comme nts HGB A1C (test code = 4548-4) 6.2 % 4.0-5.7 H GIANA (test code = GIANA) Reference RangesNormal: <5.7%Prediabetes: 5.7 - 6.4%Diabetes: > 6.5% Lab Interpretation (test code = 76272-6) [facility]normal [facility] [id number] 14:00:36CT HEAD WO CONTRAST HISTORY: headache, acutely worsening a few months ago in the context oflikely new lung cancer COMPARISON: None. TECHNIQUE: Nonenhanced CT scan of the head was done in multiple dimensions. FINDINGS: The ventricles and cerebral sulci are normal in caliber and configuration.No hydrocephalus, midline shift or pathological extra-axial fluidcollection is present. The basal cisterns are unremarkable. There is no acute intracranial hemorrhage or significant mass effect. Noparenchymal attenuation abnormality. The perales-white matter differentiationis preserved. The mastoid air cells and visualized paranasal air sinuses are clear. Thecalvarium and central skull base are unremarkable. [facility] [id number] 14:00:36CT HEAD WO CONTRAST HISTORY: headache, acutely worsening a few months ago in the context oflikely new lung cancer COMPARISON: None. TECHNIQUE: Nonenhanced CT scan of the head was done in multiple dimensions. FINDINGS: The ventricles and cerebral sulci are normal in caliber and configuration.No hydrocephalus, midline shift or pathological extra-axial fluidcollection is present. The basal cisterns are unremarkable. There is no acute intracranial hemorrhage or significant mass effect. Noparenchymal attenuation abnormality. The perales-white matter differentiationis preserved. The mastoid air cells and visualized paranasal air sinuses are clear. Thecalvarium and central skull base are unremarkable. [facility] [id number] 13:35:56PROCEDURE: CT CHEST WITH CONTRAST- CHEST PE PROTOCOL CLINICAL INDICATION: PE suspected, high pretest prob ? COMPARISON: Same day chest radiograph. TECHNIQUE: Volumetric helical CT angiogram was performed of the chest (lungapices to bases) with IV contrast. Corresponding axial, sagittal andcoronal MIP images were performed. Axial MIPs and coronal and sagittal MPRimages were generated and reviewed.. FINDINGS: DEVICES: None HEART AND GREAT VESSELS: The opacification of the pulmonary vasculature isappropriate. No filling defects are seen through the level of the segmentalpulmonary arteries. The pulmonary trunk is dilated measuring up to 3.5 cm.The thoracic aorta is normal in caliber.The heart is normal in size. No pericardial abnormalities are identified.The RV to LV is normal. MEDIASTINUM AND LOWER NECK: The left main bronchus is obstructed. Theesophagus is collapsed. The included thyroid gland appears normal. LUNGS, PLEURA AND LYMPH NODES: Ill-defined left hilar/perihilar mass isnoted measuring 5.4 x 5.1 x 5 cm. This mass obliterates the left mainbronchus and left pulmonary veins. Total left lung collapse is noted. Largeleft pleural effusion is seen. No pneumothorax is identified. Ce ntrilobularand paraseptal emphysematous changes noted involving the right lung field.Multiple smallright lung nodules measuring 3 mm and lessEnlarged right paraesophageal lymph node measuring 5.7 x 3.8 x 2.8 cm.Additional lymph node is seen at the level of the GE junction on the leftside and measures 3.1 x 2.5 x 1.9 cm. Additional mildly enlargedprevascular and right paratracheal lymph nodes areseen. The lungs are well-expanded and clear. No focal opacities are identified.No suspicious nodules. No pleural abnormality detected. VISUALIZED UPPER ABDOMEN: A 4 cm left adrenal nodule with mixed densitiesnoted. OSSEOUS STRUCTURES AND SOFT TISSUES: No focal osseous lesions are detected.The soft t issues appear normal.[facility] [id number] 13:35:56PROCEDURE: CT CHEST WITH CONTRAST- CHEST PE PROTOCOL CLINICAL INDICATION: PE suspected, high pretest prob ? COMPARISON: Same day chest radiograph. TECHNIQUE: Volumetric helical CT angiogram was performed of the chest (lungapices to bases) with IV contrast. Corresponding axial, sagittal andcoronal MIP images were performed. Axial MIPs and coronal and sagittal MPRimages were generated and reviewed.. FINDINGS: DEVICES: None HEART AND GREAT VESSELS: The opacification of the pulmonary vasculature isappropriate. No filling defects are seen through the level of the segmentalpulmonary arteries. The pulmonary trunk is dilated measuring up to 3.5 cm.The thoracic aorta is normal in caliber.The heart is normal in size. No pericardial abnormalities are identified.The RV to LV is normal. MEDIASTINUM AND LOWER NECK: The left main bronchus is obstructed. Theesophagus is collapsed. The included thyroid gland appears normal. LUNGS, PLEURA AND LYMPH NODES: Ill-defined left hilar/perihilar mass isnoted measuring 5.4 x 5.1 x 5 cm. This mass obliterates the left mainbronchus and left pulmonary veins. Total left lung collapse is noted. Largeleft pleural effusion is seen. No pneumothorax is identified. Ce ntrilobularand paraseptal emphysematous changes noted involving the right lung field.Multiple smallright lung nodules measuring 3 mm and lessEnlarged right paraesophageal lymph node measuring 5.7 x 3.8 x 2.8 cm.Additional lymph node is seen at the level of the GE junction on the leftside and measures 3.1 x 2.5 x 1.9 cm. Additional mildly enlargedprevascular and right paratracheal lymph nodes areseen. The lungs are well-expanded and clear. No focal opacities are identified.No suspicious nodules. No pleural abnormality detected. VISUALIZED UPPER ABDOMEN: A 4 cm left adrenal nodule with mixed densitiesnoted. OSSEOUS STRUCTURES AND SOFT TISSUES: No focal osseous lesions are detected.The soft t issues appear normal.[facility] [id number] 07:34:37* Test Item Value Reference Range Interpretation Comme nts IRON (test code = 4628021239) 34 ug/dL 50-160 L TIBC (test code = 5837722525) 199 ug/dL 250-410 L % FE SAT (test code = 6089435152) 17 % 20-50 L Lab Interpretation (test cod e = 33241-1) Abnormal [facility] [id number] 07:34:37* Test Item Value Reference Range Interpretation Comme nts IRON (test code = 6110745151) 34 ug/dL 50-160 L TIBC (test code = 6655650877) 199 ug/dL 250-410 L % FE SAT (test code = 2797376657) 17 % 20-50 L Lab Interpretation (test cod e = 39523-7) Abnormal [facility] HendersonProthrombin Time / [id number] 06:50:52* Test Item Value Reference Range Interpretation Comme nts PROTIME PATIENT (test code = 5964-2) 13.3 10.1-12.6 H INR (test code = 6301-6) 1.2 Normal INR <1.1; Warfarin Therapeutic range 2.0 to 3.0 or 2.5 to 3.5, depending upon the indications. Lab Interpretation (test code = 61289-4) Abnormal [facility] HendersonProthrombin Time / [id number] 06:50:52* Test Item Value Reference Range Interpretation Comme nts PROTIME PATIENT (test code = 5964-2) 13.3 10.1-12.6 H INR (test code = 6301-6) 1.2 Normal INR <1.1; Warfarin Therapeutic range 2.0 to 3.0 or 2.5 to 3.5, depending upon the indications. Lab Interpretation (test code = 16502-0) Abnormal [facility] HendersonaPTT2024-05-03 06:50:51* Test Item Value Reference Range Interpretation Comme nts APTT Patient (test code = 3173-2) 34 26-36 Lab Interpretation (test cod e = 92980-4) Normal [facility]aPTT2024-[facility]-03 06:50:51* Test Item Value Reference Range Interpretation Comme nts APTT Patient (test code = 3173-2) 34 26-36 Lab Interpretation (test cod e = 66780-7) Normal [facility] HendersonCOMP. METABOLIC PANEL (90270)2024-04-01 00:39:38* Test Item Value Reference Range Interpretation Comme nts NA (test code = 3474099159) 136 mmol/L 135-145 K (test code = 4763142904) 2.9 mmol/L 3.5-5.0 LL CL (test code = 4512199388) 91 mmol/L 98-108 L CO2 TOTAL (test code = 6618948823) 39 mmol/L 23-31 H AGAP (test code = 7413714708) 6 2-16 BUN (test code = 3574676672) 13 mg/dL 7-23 GLUCOSE (test code = 1630678072) 113 mg/dL 70-110 H CREATININE (test code = 2160-0) 0.54 mg/dL 0.50-1.04 TOTAL BILI (test code = 9623064122) 0.5 mg/dL 0.1-1.1 CALCIUM (test code = 9168451978) 9.2 mg/dL 8.6-10.6 T PROTEIN (test code = 6351779969) 7.3 g/dL 6.3-8.2 ALBUMIN (test code = 0692441746) 3.5 g/dL 3.5-5.0 ALK PHOS (test code = 6280748698) 126 U/L 34-122 H ALTv (test code = 1742-6) 12 U/L 5-35 AST(SGOT) (test code = 8813843405) 15 U/L 13-40 eGFR (test code = 34028-8) 104.9 mL/min/1.73m2 CKD-EPI eGFR (2020). Assuming creatinine has been stable day-to-day for at least three months, the eGFR indicates Category G1 (>= 90 mL/min/1.73 m2) Lab Interpretation (test code = 56965-5) [facility]normal [facility] (37038)2024-04-01 00:39:38* Test Item Value Reference Range Interpretation Comme nts NA (test code = 0821729855) 136 mmol/L 135-145 K (test code = 2359164398) 2.9 mmol/L 3.5-5.0 LL CL (test code = 2571871365) 91 mmol/L 98-108 L CO2 TOTAL (test code = 8783570441) 39 mmol/L 23-31 H AGAP (test code = 7333912395) 6 2-16 BUN (test code = 6936414311) 13 mg/dL 7-23 GLUCOSE (test code = 3294844113) 113 mg/dL 70-110 H CREATININE (test code = 2160-0) 0.54 mg/dL 0.50-1.04 TOTAL BILI (test code = 0626295632) 0.5 mg/dL 0.1-1.1 CALCIUM (test code = 3776320049) 9.2 mg/dL 8.6-10.6 T PROTEIN (test code = 6318793306) 7.3 g/dL 6.3-8.2 ALBUMIN (test code = 9958508713) 3.5 g/dL 3.5-5.0 ALK PHOS (test code = 2981731145) 126 U/L 34-122 H ALTv (test code = 1742-6) 12 U/L 5-35 AST(SGOT) (test code = 6011486781) 15 U/L 13-40 eGFR (test code = 71383-7) 104.9 mL/min/1.73m2 CKD-EPI eGFR (2020). Assuming creatinine has been stable day-to-day for at least three months, the eGFR indicates Category G1 (>= 90 mL/min/1.73 m2) Lab Interpretation (test code = 41192-6) [facility]normal [facility]TR[facility] [id number] 00:38:42* Test Item Value Reference Range Interpretation Comme nts TROPONIN I (test code = 4569043530) 0.000 ng/mL <=0.034 GIANA (test code = GIANA) Reference (Normal) Range (defined by the 99th percentile reference limit): <= 0.034 ng/mL Note: Cardiac troponin begins to rise 3-4 hours after the onset of ischemia. Repeat in 4-6 hours if the sample was drawn within 3-4 hours of the onset of the symptom and found normal. Diagnosis of myocardial injury is made with acute changes in cTn concentrations with at least one serial sample above the 99th percentile upper reference limit (URL), taken together with the patient's clinical presentation. Biotin has been reported to cause a negative bias, interpret results relative to patient's use of biotin. Lab Interpretation (test code = 00224-0) Normal [facility] [id number] 00:38:42* Test Item Value Reference Range Interpretation Comme nts TROPONIN I (test code = 5260095271) 0.000 ng/mL <=0.034 GIANA (test code = GIANA) Reference (Normal) Range (defined by the 99th percentile reference limit): <= 0.034 ng/mL Note: Cardiac troponin begins to rise 3-4 hours after the onset of ischemia. Repeat in 4-6 hours if the sample was drawn within 3-4 hours of the onset of the symptom and found normal. Diagnosis of myocardial injury is made with acute changes in cTn concentrations with at least one serial sample above the 99th percentile upper reference limit (URL), taken together with the patient's clinical presentation. Biotin has been reported to cause a negative bias, interpret results relative to patient's use of biotin. Lab Interpretation (test code = 65088-8) [id number] 00:36:25* Test Item Value Reference Range Interpretation Comme nts NT-proBNP (test code = 21578-8) 118 pg/mL <=125 Lab Interpretation (test cod e = 69152-4) [facility] [id number] 00:36:25* Test Item Value Reference Range Interpretation Comme nts NT-proBNP (test code = 29485-8) 118 pg/mL <=125 Lab Interpretation (test cod e = 29891-6) [facility] [id number] 00:26:24PROCEDURE: XR CHEST 1 VW CLINICAL INDICATION: dyspnea COMPARISON: None FINDINGS: Complete whiteout of the left lung is noted, likely large pleural effusion.No focal consolidation is identified in theright lung. No pneumothorax isidentified. The cardiomediastinal silhouette on the left is obliteratedotherwise appear shifted to the right which favors a large left pleuraleffusion as etiology for left thorax opacification.No acute bony abnormality.[facility] [id number] 00:26:24PROCEDURE: XR CHEST 1 VW CLINICAL INDICATION: dyspnea COMPARISON: None FINDINGS: Complete whiteout of the left lung is noted, likely large pleural effusion.No focal consolidation is identified in theright lung. No pneumothorax isidentified. The cardiomediastinal silhouette on the left is obliteratedotherwise appear shifted to the right which favors a large left pleuraleffusion as etiology for left thorax opacification.No acute bony abnormality.[facility] [id number] 00:16:40* Test Item Value Reference Range Interpretation Comme nts WBC (test code = 6690-2) 12.14 4.30-11.10 H RBC (test code = 789-8) 3.53 3.93-5.25 L HGB (test code = 718-7) 9.8 g/dL 11.6-15.0 L HCT (test code = 4544-3) 32.0 % 35.7-45.2 L MCV (test code = 787-2) 90.7 fL 80.6-95.5 MCH (test code = 785-6) 27.8 pg 25.9-32.8 MCHC (test code = 786-4) 30.6 g/dL 31.6-35.1 L RDW-SD (test code = 63092-4) 44.8 fL 39.0-49.9 RDW-CV (test code = 788-0) 13.3 % 12.0-15.5 PLT (test code = 777-3) 748 166-358 H MPV (test code = 59499-4) 9.6 fL 9.5-12.9 NRBC/100 WBC (test code = 4024187045) 0.0 0.0-10.0 NRBC x10^3 (test code = 3994403669) See_Comment [Automated messa ge] The system which generated this result transmitted reference range: 10*3/?L. The reference range was not used to interpret this result as normal/abnormal. GRAN MAT (NEUT) % (test code = 770-8) 74.7 % IMM GRAN % (test code = 2669392460) 0.60 % LYMPH % (test code = 736-9) 12.4 % MONO % (test code = 5905-5) 10.0 % EOS % (test code = 713-8) 1.4 % BASO % (test code = 706-2) 0.9 % GRAN MAT x10^3(ANC) (test code = 8168062817) 9.08 10*3/uL 1.88-7.09 H IMM GRAN x10^3 (test code = 3738629551) 0.07 10*3/uL 0.00-0.06 H LYMPH x10^3 (test code = 731-0) 1.50 10*3/uL 1.32-3.29 MONO x10^3 (test code = 742-7) 1.21 10*3/uL 0.33-0.92 H EOS x10^3 (test code = 711-2) 0.17 10*3/uL 0.03-0.39 BASO x10^3 (test code = 704-7) 0.11 10*3/uL 0.01-0.07 H Lab Interpretation (test code = 36895-4) Abnormal [facility] WITH [id number] 00:16:40* Test Item Value Reference Range Interpretation Comme nts WBC (test code = 6690-2) 12.14 4.30-11.10 H RBC (test code = 789-8) 3.53 3.93-5.25 L HGB (test code = 718-7) 9.8 g/dL 11.6-15.0 L HCT (test code = 4544-3) 32.0 % 35.7-45.2 L MCV (test code = 787-2) 90.7 fL 80.6-95.5 MCH (test code = 785-6) 27.8 pg 25.9-32.8 MCHC (test code = 786-4) 30.6 g/dL 31.6-35.1 L RDW-SD (test code = 53401-9) 44.8 fL 39.0-49.9 RDW-CV (test code = 788-0) 13.3 % 12.0-15.5 PLT (test code = 777-3) 748 166-358 H MPV (test code = 64348-4) 9.6 fL 9.5-12.9 NRBC/100 WBC (test code = 7658476887) 0.0 0.0-10.0 NRBC x10^3 (test code = 9629462584) See_Comment [Automated messa ge] The system which generated this result transmitted reference range: 10*3/?L. The reference range was not used to interpret this result as normal/abnormal. GRAN MAT (NEUT) % (test code = 770-8) 74.7 % IMM GRAN % (test code = 8547318301) 0.60 % LYMPH % (test code = 736-9) 12.4 % MONO % (test code = 5905-5) 10.0 % EOS % (test code = 713-8) 1.4 % BASO % (test code = 706-2) 0.9 % GRAN MAT x10^3(ANC) (test code = 3866295753) 9.08 10*3/uL 1.88-7.09 H IMM GRAN x10^3 (test code = 4347374186) 0.07 10*3/uL 0.00-0.06 H LYMPH x10^3 (test code = 731-0) 1.50 10*3/uL 1.32-3.29 MONO x10^3 (test code = 742-7) 1.21 10*3/uL 0.33-0.92 H EOS x10^3 (test code = 711-2) 0.17 10*3/uL 0.03-0.39 BASO x10^3 (test code = 704-7) 0.11 10*3/uL 0.01-0.07 H Lab Interpretation (test code = 75695-7) [facility]normal [id number] 05:04:04* Test Item Value Reference Range Interpretation Comme nts NT-proBNP (test code = 34412) 87 PG/ML SEE BELOW If NT-ProBNP is less than 300 PG/ML, heart failure is unlikely for allages. Age.................Heart Failure Likely <50 Years...........>=450 PG/ML 50-75 Years.........>=900 PG/ML > 75 Years..........>=1800 PG/ML Methodology: Radha Jeanette Electrochemiluminescense Immunoassay [facility] has important pathology staff changes effective 01/28/2023. New pathology staff will provide uninterrupted, excellent patient care and clinical consultation. See URL: [email or web address]. UNLESS OTHERWISE INDICATED, ALL TESTING PERFORMED AT [facility] [address] [place] [address] MANAGER SALES TRAINING: ODALIS HEDRICK M.D. CLIA NUMBER [id number] [facility] [place]. [id number] COMPREHENSIVE METABOLIC [id number] 03:59:26* Test Item Value Reference Range Interpretation Comme nts GLUCOSE (test code = 2217) 94 MG/DL 70-99 BUN (test code = 2208) 12 MG/DL 6-20 CREATININE (test code = 2214) 0.56 MG/DL 0.60-1.30 L eGFR (2020 CKD-EPI) (test code = 40647) 105 ML/MIN/1.73 >60 CALC BUN/CREAT (test code = 2235) 21 RATIO 6-28 SODIUM (test code = 223) 143 MEQ/L 133-146 POTASSIUM (test code = 2228) 4.3 MEQ/L 3.5-5.4 CHLORIDE (test code = 2215) 102 MEQ/L 95-107 CARBON DIOXIDE (test code = 2206) 29 MEQ/L 19-31 CALCIUM (test code = 2209) 9.6 MG/DL 8.5-10.5 PROTEIN, TOTAL (test code = 2229) 7.4 G/DL 6.1-8.3 ALBUMIN (test code = 2201) 4.6 G/DL 3.5-5.2 CALC GLOBULIN (test code = 2240) 2.8 G/DL 1.9-3.7 CALC A/G RATIO (test code = 2234) 1.6 RATIO 1.0-2.6 BILIRUBIN, TOTAL (test code = 2207) 0.3 MG/DL See_Comment [Automated me ssage] The system which generated this result transmitted reference range: <=1.2. The reference range was not used to interpret this result as normal/abnormal. ALKALINE PHOSPHATASE (test code = 2204) 100 U/L 40-136 AST (test code = 2218) 19 U/L 9-40 ALT (test code = 2219) 16 U/L 5-40 HEMOGLOBIN [id number] 03:18:01* Test Item Value Reference Range Interpretation Comme nts HEMOGLOBIN A1c (test code = 33669) 6.1 % 4.2-5.6 H [employer] GUIDELINES FOR HGB A1C: PREDIABETES/INCREASED RISK . . . . . . . 5.7-6.4% DIAGNOSIS OF DIABETES . . . . . . . . . >=6.5% WITH CONFIRMATION OR APPROPRIATE SYMPTOMS NOTE: ASSAY MAY BE AFFECTED BY HEMOGLOBINOPATHIES (SICKLE CELL ANEMIA, S-C DISEASE, OTHERS) OR ARTIFICIALLY LOWERED BY DECREASED RED CELL SURVIVAL (HEMOLYTIC ANEMIAS, BLOOD LOSS, ETC.). CONSIDER ALTERNATE TESTING OR LABORATORY CONSULTATION. CBC W/AUTO DIFF WITH [id number] 02:02:22* Test Item Value Reference Range Interpretation Comme nts WBC (test code = 1001) 9.1 K/UL 3.5-11.0 RBC (test code = 1002) 4.51 M/UL 3.80-5.40 HEMOGLOBIN (test code = 1003) 14.0 G/DL 11.5-15.5 HEMATOCRIT (test code = 1004) 41.5 % 34.0-45.0 MCV (test code = 1005) 92.0 fL 80.0-99.0 MCH (test code = 1006) 31.0 PG 25.0-33.0 MCHC (test code = 1007) 33.7 G/DL 31.0-36.0 RDW (test code = 1038) 12.7 % 11.5-15.0 NEUTROPHILS (test code = 1008) 66.2 % LYMPHOCYTES (test code = 1010) 21.3 % MONOCYTES (test code = 1011) 8.8 % EOSINOPHILS (test code = 1012) 2.3 % BASOPHILS (test code = 1013) 0.8 % IMMATURE GRANULOCYTES (test code = 1036) 0.6 % NUCLEATED RBCS (test code = 1065) 0.0 /100 WBC'S See_Comment [Automated Legend [employer] Systemsa ge] The system which generated this result transmitted reference range: 0.0. The reference range was not used to interpret this result as normal/abnormal. PLATELET COUNT (test code = 1015) 397 K/UL 130-400 ABSOLUTE NEUTROPHILS (test code = 1066) 5.99 K/UL 1.50-7.50 ABSOLUTE LYMPHOCYTES (test code = 1067) 1.93 K/UL 1.00-4.00 ABSOLUTE MONOCYTES (test code = 1068) 0.80 K/UL 0.20-1.00 ABSOLUTE EOSINOPHILS (test code = 1040) 0.21 K/UL 0.00-0.50 ABSOLUTE BASOPHILS (test code = 1069) 0.07 K/UL 0.00-0.20 ABS IMMATURE GRANULOCYTES (test code = 1020) 0.05 K/UL 0.00-0.10 ABS NUCLEATED RBCS (test code = 82927) 0.00 K/UL 0.00-0.11 HEMOGLOBIN [id number] 10:22:30* Test Item Value Reference Range Interpretation Comme nts HEMOGLOBIN A1c (test code = 70677) 5.8 % 4.2-5.6 H LIPID [id number] 05:16:09* Test Item Value Reference Range Interpretation Comme nts CHOLESTEROL (test code = 2210) 237 MG/DL <200 H TRIGLYCERIDES (test code = 2232) 126 MG/DL <150 HDL CHOLESTEROL (test code = 2220) 70 MG/DL >39 CALC LDL CHOL (test code = 2237) 142 MG/DL <100 H NOTE: CALCULATED LDL IS BASED ON AHSAN-KUNZ METHOD WHICHINCLUDES ADJUSTABLE TRIGLYCERIDE:VLDL CHOLESTEROL RATIO.THIS FACTOR VARIES BY MEASURED TRIGLYCERIDE AND NON-HDLCHOLESTEROL CONCENTRATIONS WITH INCREASED CALCULATED LDL SEENIN HIGHER TRIGLYCERIDE OR LOWER NON-HDL SPECIMENS. FOR MOREINFORMATION, SEE CLIENT ANNOUNCEMENT AT [email or web address] RISK RATIO LDL/HDL (test code = 2238) 2.03 RATIO <3.22 COMPREHENSIVE METABOLIC [id number] 05:16:09* Test Item Value Reference Range Interpretation Comme nts GLUCOSE (test code = 2217) 110 MG/DL 70-99 H BUN (test code = 2207) 21 MG/DL 6-20 H CREATININE (test code = 2213) 0.77 MG/DL 0.60-1.30 eGFR (2020 CKD-EPI) (test code = ) 89 ML/MIN/1.73 >60 CALC BUN/CREAT (test code = 2234) 27 RATIO 6-28 SODIUM (test code = 2230) 137 MEQ/L 133-146 POTASSIUM (test code = 2227) 5.1 MEQ/L 3.5-5.4 CHLORIDE (test code = 2214) 100 MEQ/L 95-107 CARBON DIOXIDE (test code = 2205) 25 MEQ/L 19-31 CALCIUM (test code = 2208) 9.9 MG/DL 8.5-10.5 PROTEIN, TOTAL (test code = 2228) 7.3 G/DL 6.1-8.3 ALBUMIN (test code = 2200) 4.6 G/DL 3.5-5.2 CALC GLOBULIN (test code = 2239) 2.7 G/DL 1.9-3.7 CALC A/G RATIO (test code = 2233) 1.7 RATIO 1.0-2.6 BILIRUBIN, TOTAL (test code = 2206) 0.4 MG/DL See_Comment [Automated me ssage] The system which generated this result transmitted reference range: <=1.2. The reference range was not used to interpret this result as normal/abnormal. ALKALINE PHOSPHATASE (test code = 2203) 91 U/L 40-136 AST (test code = 2217) 19 U/L 9-40 ALT (test code = 2219) 20 U/L 5-40 UNLESS OTHERWISE INDICATED, [facility] TESTING PER[facility]MED [facility] [address] [place] [address] MANAGER SALES TRAINING: BHAVNA GARCIA M.D. CLIA NUMBER [id number] [facility] [place]. [id number] 04:11:08* Test Item Value Reference Range Interpretation Comme nts NT-proBNP (test code = 00710) <50 PG/ML SEE BELOW If NT-ProBNP is less than 300 PG/ML, heart failure is unlikely for allages. Age.................Heart Failure Likely <50 Years...........>=450 PG/ML 50-75 Years.........>=900 PG/ML > 75 Years..........>=1800 PG/ML Methodology: FriendCode Jeanette Electrochemiluminescense Immunoassay UNLESS OTHERWISE INDICATED, ALL TESTING PERFORMED [facility] [address] [place] [address] MANAGER SALES TRAINING: BHAVNA GARCIA M.D. IA NUMBER [id number] [facility] [place]. [id number] LIPID [id number] 03:44:45* Test Item Value Reference Range Interpretation Comme nts CHOLESTEROL (test code = 2210) 234 MG/DL <200 H TRIGLYCERIDES (test code = 2232) 167 MG/DL <150 H HDL CHOLESTEROL (test code = 2220) 63 MG/DL >39 CALC LDL CHOL (test code = 2237) 141 MG/DL <100 H NOTE: CALCULATED LDL IS BASED ON AHSAN-KUNZ METHOD WHICHINCLUDES ADJUSTABLE TRIGLYCERIDE:VLDL CHOLESTEROL RATIO.THIS FACTOR VARIES BY MEASURED TRIGLYCERIDE AND NON-HDLCHOLESTEROL CONCENTRATIONS WITH INCREASED CALCULATED LDL SEENIN HIGHER TRIGLYCERIDE OR LOWER NON-HDL SPECIMENS. FOR MOREINFORMATION, SEE CLIENT ANNOUNCEMENT AT [email or web address] RISK RATIO LDL/HDL (test code = 2238) 2.24 RATIO <3.22 COMPREHENSIVE METABOLIC [id number] 03:44:45* Test Item Value Reference Range Interpretation Comme nts GLUCOSE (test code = 2217) 105 MG/DL 70-99 H BUN (test code = 2208) 16 MG/DL 6-20 CREATININE (test code = 2214) 0.50 MG/DL 0.60-1.30 L EFFECTIVE 11/11/2021, [facility] HAS IMPLEMENTED THE NKF-ASN RECOMMENDED KD-EPI EGFR REFIT CALCULATION THAT DOES NOT INCLUDE A COEFFICIENT FORRACE. FOR MORE INFORMATION, SEE ANNOUNCEMENT [email or web address] eGFR (2020 CKD-EPI) (test code = 71568) 109 ML/MIN/1.73 >60 CALC BUN/CREAT (test code = 2235) 32 RATIO 6-28 H SODIUM (test code = 223) 139 MEQ/L 133-146 POTASSIUM (test code = 2227) 4.4 MEQ/L 3.5-5.4 CHLORIDE (test code = 2214) 98 MEQ/L 95-107 CARBON DIOXIDE (test code = 2205) 28 MEQ/L 19-31 CALCIUM (test code = 2208) 9.8 MG/DL 8.5-10.5 PROTEIN, TOTAL (test code = 2228) 7.4 G/DL 6.1-8.3 ALBUMIN (test code = 2200) 4.5 G/DL 3.5-5.2 CALC GLOBULIN (test code = 2239) 2.9 G/DL 1.9-3.7 CALC A/G RATIO (test code = 2233) 1.6 RATIO 1.0-2.6 BILIRUBIN, TOTAL (test code = 2206) 0.5 MG/DL See_Comment [Automated me ssage] The system which generated this result transmitted reference range: <=1.2. The reference range was not used to interpret this result as normal/abnormal. ALKALINE PHOSPHATASE (test code = 2203) 100 U/L 40-136 AST (test code = 2217) 21 U/L 9-40 ALT (test code = 2218) 24 U/L 5-40 CBC W/AUTO DIFF WITH [id number] 03:29:27* Test Item Value Reference Range Interpretation Comme nts WBC (test code = 1001) 9.1 K/UL 3.5-11.0 RBC (test code = 1002) 4.94 M/UL 3.80-5.40 HEMOGLOBIN (test code = 1003) 15.4 G/DL 11.5-15.5 HEMATOCRIT (test code = 1004) 45.2 % 34.0-45.0 H MCV (test code = 1005) 91.5 fL 80.0-99.0 MCH (test code = 1006) 31.2 PG 25.0-33.0 MCHC (test code = 1007) 34.1 G/DL 31.0-36.0 RDW (test code = 1038) 12.1 % 11.5-15.0 NEUTROPHILS (test code = 1008) 68.6 % LYMPHOCYTES (test code = 1010) 19.3 % MONOCYTES (test code = 1011) 9.4 % EOSINOPHILS (test code = 1012) 1.3 % BASOPHILS (test code = 1013) 1.1 % IMMATURE GRANYLOCYTES (test code = 1036) 0.3 % NUCLEATED RBCS (test code = 1065) 0.0 /100 WBC'S See_Comment [Automated messa ge] The system which generated this result transmitted reference range: 0.0. The reference range was not used to interpret this result as normal/abnormal. PLATELET COUNT (test code = 1015) 425 K/UL 130-400 H ABSOLUTE NEUTROPHILS (test code = 1066) 6.27 K/UL 1.50-7.50 ABSOLUTE LYMPHOCYTES (test code = 1067) 1.76 K/UL 1.00-4.00 ABSOLUTE MONOCYTES (test code = 1068) 0.86 K/UL 0.20-1.00 ABSOLUTE EOSINOPHILS (test code = 1040) 0.12 K/UL 0.00-0.50 ABSOLUTE BASOPHILS (test code = 1069) 0.10 K/UL 0.00-0.20 ABS IMMATURE GRANULOCYTES (test code = 1020) 0.03 K/UL 0.00-0.10 ABS NUCLEATED RBCS (test code = 56176) 0.00 K/UL 0.00-0.11 Consult Notes Date/Time Note Provider Source 2024-04-06 14:00:00 [id number]:00:00Associated Order(s): CONSULT ADULT PHYSICAL THERAPY Patient agreeable to working with physical therapy. Patient met sitting edge of bed.Recommend nursing staff utilize supervision to safely assist patient with mobility out of the bed or chair.PHYSICAL THERAPY EVALUATIONConsult received, chart reviewed and evaluation complete this date. Patient is referred to PT for evaluation and treatment. Patient is a 59 year old female who presents to hospital for Borderline low oxygen saturation level.Discharge Recommendations:Therapy Needs and Potential:Patient would benefit from continued physical therapy services to address: decline in gait and/or balance decline in stair/step negotiation decreased strength decreased endurancePatient demonstrates good potential to improve and meet therapy goals with further physical therapy services.Patient appears motivated to improve their functional mobility and return to their previous level of function.Patient demonstrates ability to tolerate atleast 30-60 minutes of physical therapy with active participation.Challenges to Home Transition:increased risk of fallsEquipment recommendations:no deviceCurrent Functional Status and/or Treatment:AM-PAC 6 Clicks (Raw Score 0=Dependent, 24=Independent; Low function Raw Score 0= Dependent, 32=Independent):Raw Score - Basic Mobility : 22T-Scale Score - Basic Mobility : 47.4Bed Mobility:Sitting Balance: GoodScooting to EOB: IndependentDizziness NoTransfers:sit-stand: IndependentStatic/dynamic standing balance: Fair+Dizziness NoAmbulation:Assisted patient with ambulation as follows: 50 feet using no device. and Supervision.Patient presenting with slow paced gait pattern.Dizziness NoTherapeutic exercise:patient educated in Fall prevention, General strengthening, and Positioning. and patient/caregiver verbalizes understanding of instructions.Educated patient on risk of dizziness caused by position changes following anesthesia/period of bed rest. Pt is instructed to give herself extra time to allow dizziness to pass prior to standing to prevent LOB or falls.Educated patient on energy conservation; instructed to perform small bouts of activity spread throughout the day, allowing time for rest between activities, to build endurance and prevent fatigue.Functional Outcome Measures: (Values within the past 12 hours)Tinetti Gait Score- # / 12Initiation of gait: No hesitancyStep length: On both sides, swing foot passes stance footFoot clearance: Both feet completely clear floorStep Symmetry: Step lengths equalStep continuity: Steps appear continuousPath: Mild/moderate deviation or uses ADTrunk: No sway, but flex of knees/ back or spreads armsWalking: Heels almost touchingTinetti Gait Score: 10Tinetti Gait Score Interpretation: >= 7 - Low risk for fallsTINETTI BALANCE SCORE- # / 16Sitting balance: Steady, safeArises: Able, uses arms to helpAttempts to Rise: Able to rise, 1 attemptImmediate standing balance (first 5 sec): Steady but uses walker or other supportStanding Balance: Steady but DEBBIE > 4 inches or uses AD/other supportNudged 3 times *: Staggers, grabs, catches selfEyes closed*: SteadyTurning 360 degrees: Either discontinuous or unsteadySitting down: Uses arms or motion not smoothTinetti Balance Score: 10Tinetti Balance Interpretation: >= 9 - Low risk for fallsAfter session, patient sitting edge of bed. Call button provided.PLAN OF CARE:While in the hospital, PT will follow patient at least 2 times per week,once or twice a day, per patient's tolerance and needs.See below for complete details.Admit Date: 03/31/2024Hospital Diagnosis:Borderline low oxygen saturation level [R79.81]PT Diagnosis: Difficulty walkingWeight Bearing Precaution: NAGeneral Precautions: PPE used:Gloves, General,IV intact, oxygen: Nasal canulaBracing/Cast present or required:N/APMH:Past Medical History:Diagnosis DateClass 2 obesityCOPD (chronic obstructive pulmonary disease)Hilar massPleural effusionTobacco abusePSH: No past surgical history on file.Prior Living Situation: Downstairs apartment alone, Able to negotiate: YesDME: Wheel ChairPrior level of Mobility: community ambulation, house hold ambulationSuspected ischemic or hemorraghic stroke:NoSubjective: Patient states that she isnt able to do things that she used to because of her decreased endurance and limited standing time.Patient/Family Goals: pain controlPatient/Family verbalizes understanding of condition: YesPAIN:-Pain Description: stabbing-Pain Location: Chest when taking deep breath-Pain rating before treatment: 10, After treatment: does not rate-Pain Management: Nursing NotifiedCOMMUNICATIONPrimary Language: EnglishAble to Verbalize needs: YesVision:good; no issues reported Hearing:good; no issues reportedORIENTATION/COGNITION:Oriente d to: person, place, date/time, and situationAwake: Yes Alert: Yes Dizzy: NoFollows Commands: Yes1-Step Yes Multi-Step YesInconsistent: NoNEUROLOGICALLight Touch: within functional limits bilateral LETone: normalBALANCE:Sitting: Static: Good Dynamic: GoodStanding: Static: Fair+ Dynamic: Fair+RANGE OF MOTION: within functional limits bilateral LESTRENGTH: 4/5 (Good), bilateral LEENDURANCE: Fair+, Room airSKIN INTEGRITY: intactPROBLEM LIST: Decline in gait, Difficulty with stairs, and Decreased enduranceASSESSMENT: Patient is a 59 year old female seen secondary to the above listed diagnosis. Patient would benefit from continued PT to address the above listed deficits to maximize independence and safety with functional mobility.Rehabilitation Potential: goodGoals: The following goals are to maximize independence and safety with functional mobility to eventually return to prior living situation and prior functional status.Upon discharge, patient and/or family will demonstrate the followin. Independent with ambulation, Feet: 150 using least assistive device.2. Patient will tolerate 30 minutes of out of bed activity.Treatment Plan: Gait training, Gait training on stairs, Therapeutic exercise, Transfer training, Balance training, Bed mobility training, Equipment needs assessment, Safety education, patient/caregiver education, Pain management, Neuromuscular Re-Education, and Functional Motor TrainingPATIENT EDUCATION: Patient provided with preferred teaching of verbal information on role of PT, plan of care, and above instruction. Shows readiness to learn. Verbal instruction teaching provided. Individual is able to read and verbalizes understanding of teaching provided.Fe Montano PT, DPTTotal Timed Tx Codes in Minutes: 8 MinTotal Treatment Time in Minutes: 16 Elaine physical therapy evaluation of moderate complexity was completed based on meeting the criteria below:A history of present problem with at least 1-2 personal factors (includes environmental factors) and/or comorbidities that impact the plan of careAn examination of body systems using standardized tests and measures in addressing at least 3 or more elements from any of the following: body structures and functions, activity limitations and/or participation restrictionsAn evolving clinical presentation with changing characteristics 70790-3Nufxdda gzcpNF5166-56-13S50:43:28Consult [id number]. [id number] for patient zhpn26254-2Qnbfpyw noteLNNARRATIVEFormatted C-CDA narrative [id number] T Lozano PT[address] Ax[id number] UBVFOBONACWARAGPCEKQK0937-08-80G21:43 :[id number]|1.2.840.1 [id number] 4 Fe Montano PT [facility] 2024-04-06 10:58:00 [id number]:58:00Associated Order(s): CONSULT ADULT OCCUPATIONAL THERAPY OT GENERAL EVALUATIONConsult received via [employer], EMR reviewed and evaluation completed 04/06/24. Patient referred to occupational therapy for evaluation and treatment secondary to hilar mass. Patient agreeable to participate in occupational therapy.Discharge Recommendations:Therapy Needs and Potential:Not applicable as no further skilled acute care OT needs at this time.Challenges to Home Transition:- Requires physical assistance for IADLS- Limited caregiver availability- Increased risk of falls- Environmental barriersEquipment Recommendations: Tub transfer benchPLAN OF CARE: Discharge from OT servicesPrecautions:Weight bearing status: NAGeneral: Fall and O2 per NCBracing: N/ACurrent Occupational Performance and/or Treatment:AM-PAC 6 Clicks (Raw Score 0=Dependent, 24=Independent; Low function Raw Score 0= Dependent, 32=Independent):Raw Score - Daily Activity: 23T-Scale Score - Daily Activity: 51.12UB Dressing: Independent, to exchange gowns sitting EOBLB Dressing: NT, patient wearing socks and shoes from home and endorses donning prior to evaluation. Endorses no difficulties with LB dressing except increased WOB.Toilet Transfer: Independent, without DMETub/Shower Transfer: NT, patient educated on use of seat in shower for fall prevention and energy conservation secondary to use of home O2 and increased WOB with ADLs. Educated on completing showers in early day secondary to energy conservation techniques.Functional Mobility:Patient met sitting EOBSit to stand: IndependentIn room ambulation to/from bathroom and to room door with increased WOB observed, then patient returns to EOB.Patient/caregiver educated on: Adaptive equipment , ADL training, Compensatory techniques/adaptive strategies, Deep breathing, Energy conservation, Fall prevention, Positioning, Role of OT, Safety awareness, and diaphragmatic breathing exercises and lateral costal breathing exercises to improve chest expansion and increase respiratory muscle strength necessary for functional participation in ADLs and functional mobility.Patient left seated edge of bed with call vital in reach. MD present . Please, see full evaluation below for more detail.OT EVALUATION:59 year old female Admit date: 03/31/2024 Date of onset: 4Admit Diagnosis: Borderline low oxygen saturation level [R79.81]OT Diagnosis: Activity intolerance, Decreased endurance, and Impaired self-care mobilityPMH:Past Medical History:Diagnosis DateClass 2 obesityCOPD (chronic obstructive pulmonary disease)Hilar massPleural effusionTobacco abusePSH: No past surgical history on file.PAIN:Pain Location: "lungs"Pain rating before treatment: 10, After treatment: does not ratePain Management: Reports taking pain meds, Nursing Notified, and Repositioning ProvidedOCCUPATIONAL ROLES/HOME ENVIRONMENT:Home environment: Lives alone and Downstairs apartment - daughter lives in same complex.Bathroom access: YesBathroom setup: ComboOccupation(s): Unemployed - recently worked at [employer] however recently stopped works secondary to poor respiratory functionFunction prior to admission:Household ambulation (short distances)Independent with BADLs - endorses doing minimal cooking/cleaning secondary to poor respiratory functionDaughter assists with driving to stores/appointmentsSuspected ischemic or hemorraghic stroke patient: NoEquipment prior to admission: home O2 and wheelchairPERFORMANCE SKILLS/FACTORS:UE Muscle Tone: bilateral WNLUE ROM: bilateral AROM WFLUE Strength: JELENA UE WFLHand dominance: rightDexterity/Coordination: bilateral IntactEndurance - Sitting: Fair Standing: Poor+Sitting Balance - Static: Good Dynamic: GoodStanding: Balance - Static Good Dynamic: GoodDizziness: NoSkin Integrity: No breakdown notedSensation: Patient denies numbness and tinging.Oral Motor: WFLCommunication: Able to verbalize needs Yes Other: N/AVision: WFL Yes Other: glassesHearing: good; no issues reportedCOGNITION:Orientation: person, place, date/time, and situationFollows Commands: 1-step Yes Multi-step Yes Inconsistencies NoSafety Awareness/Judgment: GoodPROBLEM LIST: Decreased independence with IADL and Decreased strength/endurance for functional activityREHAB POTENTIAL/PROGNOSIS: NA as no further therapy needsPATIENT/FAMILY GOALS: To breathe betterTREATMENT/INTERVENTION PLAN: Discharge from OTPATIENT-FAMILY TEACHINGPatient provided with preferred teaching of verbal information on Adaptive equipment , ADL training, Compensatory techniques/adaptive strategies, Deep breathing, Energy conservation, Fall prevention, Positioning, Role of OT, Safety awareness, and diaphragmatic breathing exercises and lateral costal breathing exercises to improve chest expansion and increase respiratory muscle strength necessary for functional participation in ADLs and functional mobility. . Shows readiness to learn. Verbal instruction teaching provided. Individual is able to read and verbalizes understanding of teaching provided and accurately returns demonstration of skill.Sharon Holloway OTR, OTDPager: [phone] Timed Treatment Codes: 12 MinTotal Treatment Time: 18 MinPatient Complexity Level Moderate - An occupational therapy evaluation of moderate complexity was completed using the above tests and measures. The following information was obtained: An occupational profile and medical and therapy history, including an expanded review of medical and/or therapy records and additional review of physical, cognitive, or psychosocial history related to current functional performance, Various standardized and non-standardized assessments were used to identify at least 3-5 performance deficits related to physical, cognitive, or psychosocial skills that result in activity limitations and/or participation restrictions, and Clinical decision making of moderate analytic complexity, which includes an analysis of the occupational profile, analysis of data from detailed assessment(s), and consideration of several treatment options. Patient may present with comorbidities that affect occupational performance. Minimal to moderate modification of tasks or assistance (e.g., physical or verbal) with assessment(s) is necessary to enable patient to complete evaluation component. [id number] fyxtVH9517-44-55E35:38:13Consult noteTXT1.2.840.299576.1.13.104.2.7.2. 929567|[id number] for patient zmbr00921-4Hieapwi noteLNNARRATIVEFormatted C-CDA narrative [id number] J Wielfaert [address] Uw[id number] ZQCBVPULLAIIUPDVCXHJH0336-12-60U26:38 :131.2.840.901685.1.72.3.15|1.2.840.1 [id number] 5 Sharon Holloway OT [facility] 2024-04-01 09:03:00 1950-59-46H38:03:00Associated Order(s): CONSULT PULMONARY MEDICINE PULMONARY MEDICINE CONSULTATION NOTEConsultation requested by: MISSY Foxate of Service: 04/01/2024 09:03HD #: 0CC: SOBReason for Consultation: please give recommendation or opinion on: 59 F extensive PMHx presenting from [facility] with newly-discovered hilar mass and large pleural effusion. Appreciate consideration for thoracentesis +/- guidance regarding transbronchial vs CT-guided biopsy of hilar mass if necessaryHistory of Present IllnessHolly Dora Bridges is a 59 year old female with PMH of COPD (home O2 2L since 02/2024), asthma, 40 pack-year smoking hx (quit 01/2024) who presents as a transfer from [facility] ED with a L lung mass c/b large L pleural effusion.Pt reports chronic SOB that acutely worsened 2 days ago, to the point that pt would wake up unable to breathe. Tried albuterol with mild temporary relief, but symptoms continue to worsen. Pt endorses bilateral pleuritic CP, night sweats, and 110 lbs weight loss in the past year.Pt states she was hospitalized last month in [place] for a COPD exacerbation. She was told she had "a little bit of fluid" in her lung but was not informed of having a mass and did not have her lung tapped. She is on Advair daily and takes albuterol Q4H. She denies increased cough frequency or sputum production.Social HistoryTobacco UseSmoking Status FormerPacks/day: 1.00Years: 40.00Additional pack years: 0.00Total pack years: 40.00Types: CigarettesSmokeless Tobacco Not on filePAST MEDICAL HISTORYPast Medical History:Diagnosis DateCOPD (chronic obstructive pulmonary disease)No past surgical history on file.Family HistoryProblem Relation Age of OnsetCancer NoFHxSocial HistorySocioeconomic HistoryMarital status: DivorcedTobacco UseSmoking status: FormerPacks/day: 1.00Years: 40.00Additional pack years: 0.00Total pack years: 40.00Types: CigarettesSubstance and Sexual ActivityAlcohol use: Not CurrentlyDrug use: NeverAllergies: Patient has no known allergies.Current Hospital Medications:Current Facility-Administered MedicationsMedication Dose Route Frequency Last Rate Last Adminacetaminophen (TYLENOL) tablet 650 mg 650 mg Oral R5HBJJasajyeerii (LOVENOX) injection 40 mg 40 mg Subcutaneous DAILYHYDROcodone-acetaminophen (NORCO 5) 5-325 mg tablet 1 tablet 1 tablet Oral Q6HPRN 1 tablet at 04/01/24 0825ipratropium-albuteroL (DUONEB) 0.5 mg-3 mg(2.5 mg base)/3 mL nebulizer solution 3 mL 3 mL Inhalation Q4H 3 mL at 04/01/24 0657polyethylene glycol 3350 powder 17 g 17 g Oral DAILYHome Medications:Current Facility-Administered MedicationsMedication Dose Route Frequency Last Rate Last Adminacetaminophen (TYLENOL) tablet 650 mg 650 mg Oral H4ULGUhrscdvebxe (LOVENOX) injection 40 mg 40 mg Subcutaneous DAILYHYDROcodone-acetaminophen (NORCO 5) 5-325 mg tablet 1 tablet 1 tablet Oral Q6HPRN 1 tablet at 04/01/24 0825ipratropium-albuteroL (DUONEB) 0.5 mg-3 mg(2.5 mg base)/3 mL nebulizer solution 3 mL 3 mL Inhalation Q4H 3 mL at 04/01/24 0657polyethylene glycol 3350 powder 17 g 17 g Oral DAILYPhysical Exam and Objective DataBP 123/70 | Pulse 78 | Temp 36.9 ?C (98.4 ?F) | Resp 20 | Ht 5' 4" (1.626 m) | Wt 197 lb (89.4 kg) | SpO2 95% | BMI 33.81 kg/m?Constitutional: patient alert and in no acute distressHead: normocephalic and atraumaticEyes: normal external eye, corneas clear, conjunctiva and sclera normal and pupils equal, round, reactive to light and accomodationENT: nasal passages clear; moist oral mucosa, no erythema or tonsillar enlargement, posterior pharynx clear; no cervical lymphadenopathyCardiovascular: regular rate and rhythm, no murmur, no JVD, no lower extremity pitting edema, symmetrical peripheral pulsesRespiratory: diminished breath sounds to L lung. No wheezes, rales or rhonchiGastrointestinal: soft, non-tender, non-distendedMusculoskeletal: No clubbing or cyanosisNeurologic: normal gait and station, normal range, cranial nerves II - XII grossly intactIntegument: skin color, texture and turgor are normal; no bruising, rashes or lesions notedLymphatic: No appreciable supraclavicular, submandibular or axillary LAD appreciableIntake/Output Summary (Last 24 hours) at 04/01/2024 0903Last data filed at 04/01/2024 0436Gross per 24 hourIntake --Output 500 mlNet -500 mlLABORATORYCBC BMP LFTsWBC (10*3/?L)Date Value03/31/2024 12.14 (H)NA (mmol/L)Date Value03/31/2024 136ALK PHOS (U/L)Date Value03/31/2024 126 (H)HGB (g/dL)Date Value03/31/2024 9.8 (L)K (mmol/L)Date Value03/31/2024 2.9 (LL)ALTv (U/L)Date Value03/31/2024 12HCT (%)Date Value03/31/2024 32.0 (L)CALCIUM (mg/dL)Date Value03/31/2024 9.2AST(SGOT) (U/L)Date Value03/31/2024 15PLT (10*3/?L)Date Value03/31/2024 748 (H)CL (mmol/L)Date Value03/31/2024 91 (L)RBC (10*6/?L)Date Value03/31/2024 3.53 (L)BUN (mg/dL)Date Value03/31/2024 13CardioCREATININE (mg/dL)Date Value03/31/2024 0.54NT-proBNP (pg/mL)Date Value03/31/2024 118ThyroidNo results found for: "TSH"No components found for: "GLUC"RESULTS REVIEWED:CT CHEST PULMONARY ANGIOGRAMResult Date: . No evidence of pulmonary embolism through the level of the subsegmental branches. AIDOC (computer aided detection software) confirms no filling defects in the pulmonary artery branches. 2. A 5 cm left hilar/perihilar mass obstructing the left main bronchus and left pulmonary veins resulting in complete left lung collapse. Findings likely represent a primary lung neoplasm and less likely conglomerate metastatic lymph nodes. Tissue sampling is recommended along with whole body staging with FDG PET/CT. Large left pleural effusion. 3. Markedly enlarged paraesophageal lymph nodes concerning for metastases. Indeterminate small right lung nodules. Indeterminate left adrenal nodule. Emphysematous changes in the lungs. Preliminary Report Dictated by Resident: Jessica Kruger I, Mary Jo Lowe MD., have reviewed this study and agree with the above report.XR CHEST 1 VWResult Date: 03/31/2024Large left pleural effusion. Preliminary Report Dictated by Resident: Jessica Kruger I, Stephanie Saunders MD., have reviewed this study and agree with the above report.Assessment & PlanHolly Dora Bridges is a 59 year old female with5 cm L hilar/perihilar mass with complete obstruction of L main bronchusLarge L pleural effusion with complete L lung collapseEnlarged paraesophageal lymph nodes c/f mysoakzpmg07 pack-year smoking historyHx of COPD on 2L home O2Hx of asthmaPt with acute on chronic SOB, night sweats, pleuritic CP, unintentional weight loss, and extensive smoking hx, found to have a large L lung mass, pleural effusion, and enlarged lymph nodes, which is highly concerning for malignancy with possible metastasis. She is satting high 90s on 2L NC, with no wheezing or increased cough/sputum production, so less likely COPD exacerbation. Pt is symptomatic with significant L pleural effusion and lung collapse, so a diagnostic and therapeutic thoracentesis is indicated at this time. If cytology negative for malignancy, will consider inpatient vs outpatient EBUS pending symptom burden.Recommendations- US-guided Thoracentesis planned for this afternoon- F/u pleural fluid analysis, cytology, culture- C/w O2 pp and Duoneb N4NYkqn was reviewed with Dr. Champagne and discussed with the patient. All concerns were addressed and all questions answered.Jason Darnell, MS3I have verified the medical student documentation and/or findings, including the history, physical exam, and medical decision making. Additionally, I have personally performed or re-performed the physical exam and medical decision making activities of this patient's evaluation and management service.JUAN DANIEL Montes-5 FellowPulmonary & Critical Care Medicine ssociated attestation - Leo Champagne MD - 04/04/2024 1:40 PM CDT Attestation:Today 01 Apr 2024 I examined and discussed this patient with MARY Darnell and Dr Mcknight. I confirmed all data in the MS3 note. I agree with the observations, assessments, and recommendations.[id number] [id number], William James1.2.840.565511.1.13.104.2.7.2.83 7844YbwwsduTmqyyhcAsohxXW8265-34-72W9 3:40:39Consult noteTXT1.2.840.145181.1.13.104.2.7.2. 217395|[id number] for patient raty26981-0Qdblijp noteLNNARRATIVEFormatted C-CDA narrative textIM-PULMONARY DISEASEIM-PULMONARY DISEASEUT[address] Rg[id number] RLLQTBCDDYVOANAQNOODK1318-34-82S13:40 :391.2.840.536192.1.72.3.15|1.2.840.1 51835.1.13.104.2.7.2.727879_[id number] 9 IM-PULMONARY DISEASE [facility] History and Physical Notes Date/Time Note Provider Source 2024-04-12 09:24:47 3180-18-57Q45:24:47F ormatting of this note might be different from the original.Interventional Pulmonary Preoperative History & Physical NoteDate of Service: 04/12/2024Vandananico Bridges is a 59 year old female who was interviewed and examined today in the DSU/holding area/operating room before induction of anesthesia. There have been no significant interval changes in the history or physical exam. I agree with the Pulmonology progress note as written from date 04/11/24.Risks, benefits and alternatives to the procedure were reviewed with the patient again today, and pt voiced understanding of the condition present as well as the planned procedure(s) without questions and wishes to proceed. Informed consent had been obtained.Diagnosis: hilar massPlanned Procedure: flexible bronchoscopy, airway inspection, endobronchial biopsy, transbronchial biopsyJoseph DO Ismael, PGY-5Pulmonary & Critical Care Medicine04/12/2024 9:24 AM ssociated attestation - Bessy Romero MD - 04/12/2024 1:59 PM CDT Agree with ihik47539-9Sadekda and physical iaufXH2322521CsjnjsBessy Romero1.2.840.066210.1.13.104.2.7.2 .522238EzclzvMjfqkydnEwnamTD6264-2 04-12T13:59:51History and physical noteTXT1.2.840.761955.1.13.104.2.7 .2.760437|[id number] for patient nqyi64421-9Mspmjvz and physical noteLNNARRATIVEFormatted C-CDA narrative textIM-PULMONARY DISEASEIM-PULMONARY DISEASE[address] Je[id number] 42FRLUUWCVVAGFARXJDCQDIY2379-64-20 T13:59:511.2.840.330557.1.72.3.15| 1.2.840.154914.1.13.104.2.7.2.7278 [id number] IM-PULMONARY DISEASE [facility] 2024-04-01 00:43:09 2379-94-46J17:43:09F ormatting of this note is different from the original.ALIDA Villanueva Admit H&PPCP: CHICA Jarrett of Service: 4[facility] COMPLAINT: shortness of breathHISTORY OF PRESENT ILLNESSHolly Dora Bridges is a 59 year old female with a PMH of COPD (on home O2 2L since 02/2024), asthma, 40 pack-year smoking history (quit 01/2024), who presents as a transfer from [facility] ED where she had initially presented for SOB and was found to have a lung mass c/b large left pleural effusion.In [facility] ED, T 37.1, HR 87, BP 121/72, RR 24, 97% on 2L NC. ABG showed pH 7.48, PCO2 43, PO2 82, HCO3 31. Labs significant for WBCs 12, Hgb 9.8, K 2.9, HCO3 39, Cr 0.54, troponin 0, NT-proBNP 118, alk phos 126. CTPA showed a 5 cm hilar/perihilar mass obstructing the left main bronchus and left pulmonary veins resulting in complete L lung collapse, large left pleural effusion, enlarged paraesophageal lymph nodes concerning for metastatic disease, indeterminate left adrenal nodule, a dilated pulmonary trunk and no PE. She was given fentanyl 50 mcg x1, Zofran 4 mg and 40 mEq Kcl and transferred to [place].Patient states she has had shortness of breath that worsened on Thursday. She woke up and could not breathe, thought she was going to , could not catch her breath despite being on oxygen. She used a nebulizer and felt a little better temporarily, but then her symptoms worsened again. Her symptoms have been worse in the morning when she wakes up. Has been on home O2 since March 02, initially prescribed for COPD. Unintentional weight loss of 110 lbs in the past year. Endorses night sweats. Patient denies productive cough, fevers, chills, pressure-like chest pain, nausea, vomiting, diarrhea, vision changes, blood in the stool, other bleeding other than mild nosebleeds when she blows her nose in the morning. Endorses bilateral pleuritic chest pain. PCP recently wanted to start her on steroids (for possible COPD exacerbation?).Takes Ibuprofen 800 2-3 times/day for pounding headaches in the middle of her forehead, worse in the morning that are chronic but have worsened since August. Denies heart, liver, kidney problems.Was hospitalized 03/02 - 03/05 in [place] for COPD exacerbation. States they told her she had fluid in her lungs but they did not help her enough.Lives in [place] alone, but her daughter lives in the same apartment complex. Also has friends that support her. 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 Denies alcohol, illicit drug use. Denies history of cancer or other major medical problems in her 1st degree family members. Endorses seasonal allergies but NKDA.Past medical history: has a past medical history of COPD (chronic obstructive pulmonary disease).Past surgical history: has no past surgical history on file.Social history: reports that she has quit smoking. Her smoking use included cigarettes. She has a 40.00 pack-year smoking history. She does not have any smokeless tobacco history on file. She reports that she does not currently use alcohol. She reports that she does not use drugs.Family history: family history is not on file. No family history of cancer.Allergies: No Known AllergiesMEDICATIONSReviewedREVIEW OF SYSTEMSPertinent as per HPIPHYSICAL EXAMINATIONVitals:03/31/24 2200 03/31/24 2300 04/01/24 0045 04/01/24 0050BP: 137/76 131/75 (!) 142/73Pulse: 82 83 88Resp: 27 26 22Temp: 36.7 ?C (98 ?F) 36.4 ?C (97.6 ?F)TempSrc: OralSpO2: 97% 99% 93%Weight: 89.4 kg (197 lb)Height: 1.626 m (5' 4")General: alert and oriented x 4 in mild respiratory distressLungs: diminished breath sounds on the left; no wheezing; takes a breath every 4-5 wordsCardio: normal rate and regular rhythmAbdomen: soft and non-tenderExtremities: no pitting edemaNeuro: strength 5-/5 BLE, 5/5 BUELABS - reviewedIMAGING - reviewedASSESSMENT/PLANHolly Dora Bridges is a 59 year old female with PMH as listed above, admitted to the hospital with:5 cm left lung mass c/b complete left lung collapseLarge left pleural effusionEnlarged paraesophageal lymph nodesDilated pulmonary trunkCOPD on home 2L, not in vqzpxloeruhy71 pack-year smoking history, quit in atient presenting with history, imaging findings highly concerning for malignancy. Also presenting with significant shortness of breath that can likely be alleviated with thoracentesis given large L pleural effusion and collapsed left lung. No wheezing on exam so SOB more likely due to above findings vs COPD exacerbation.- O2 pp- Duoneb Q4H- Consult pulm vs IR in the AM for thoracentesis and biopsy- TTE- pain medsHeadachesLikely chronic tension headaches, although given presentation there is also concern for brain mets and patient does report a worsening of these headaches starting a few months ago. Will pursue CT without contrast to rule out any large/concerning masses given recent administration of IV contrast, although patient may need further brain imaging going forward.- CT head wo contrastMetabolic alkalosisHypokalemia, POAThrombocytosis likely 2/2 malignancyAnemia- trend BMP, replete electrolytes- iron panel, ferritin4 cm left adrenal incidentaloma- Anticipate evaluation by oncology soon who can provide further recsPain UncontrolledTylenol and NorcoProphylaxis: DVT- enoxaparinStress Ulcer: no indication for prophylaxisCode Status: addressed: FULLBowel Regimen: zoniaxWALLY Worrell-2 Internal Medicine Resident ssociated attestation - Ronald Zuluaga MD - 04/01/2024 2:50 AM CDT I personally examined the patient on 04/01/[address] Suarez's resident note as written. I actively participated in the decision-making process. Please see the resident's note for additional details.Ronald Zuluaga, [facility] INSTITUTE OF LIVINGivision of Internal MedicineAssistant Veqgsafnr21773-2Miqcodo and physical [id number], Owen Li-Young1.2.840.817181.1.13.104.2. 7.2.938515RlyIeifZv-NjwwaIH9743-61 -03T02:50:16History and physical noteTXT1.2.840.739457.1.13.104.2.7 .2.248281|[id number] for patient quex59251-6Fhthiza and physical noteLNNARRATIVEFormatted C-CDA narrative textUT[address] Q[id number] 03GHEZXVODEWQTCWZJKMVFYP2178-32-99 T02:50:161.2.840.380474.1.72.3.15| 1.2.840.937168.1.13.104.2.7.2.7278 [id number] [facility] Procedure Notes Date/Time Note Provider Source 2024-04-12 16:04:28 1999-44-81S13:04:28P rocedure(s): BRONCHOSCOPYPre-Procedure Diagnose(s): Hilar massPost-Procedure Diagnose(s): Hilar mass Bronchoscopy Procedure ReportPatient: Charly NealePatient ID: [id number] Date: 4Referring Physician: Félix Terrazas Physician: Lonnie Jerry Fellow: ESTELLE Chun Class: 3Medications: Versed, fentanylTopical Anesthesia: Lidocaine 1%, 14 ccMonitoring: EKG, blood pressure, oximetryINTRODUCTION:59 year old year old female patient for an inpatient bronchoscopy. The indication(s) for the procedure was hilar mass.CLINICAL HISTORY & PHYSICAL EXAMINATION:The patients clinical history and physical examination were performed and are documented in the patients record.CONSENT:After the risks benefits and alternatives of the procedure were thoroughly explained, informed consent was obtained from the patient/guardian.DESCRIPTION OF PROCEDURE: Timeout was performed. After adequate local anesthesia and IV sedation, the bronchoscope was passed via the mouth to the level of the true vocal cords. The cords moved symmetrically. These were anesthetized with local lidocaine. The trachea was entered. The pola was sharp. The left main stem and the right mainstem bronchi were visualized. Findings: >90% obstruction of L mainstem bronchus by extrinsic compression presumably from large hilar mass with pressure ulceration of bronchial mucosa. Attempted to traverse lesion however there was significant bleeding so cold saline and epinephrine were applied with resolution of bleeding. No biopsies were attempted due to risk of hemorrhage. The bronchoscope was subsequently removed.COMPLICATIONS: There were no complications.IMPRESSION:L mainstem bronchus obstruction due to large hilar massRECOMMENDATIONS:Rigid bronchoscopy with possible endobronchial stent and EBUS (if patient is agreeable, will plan for tomorrow AM)Procedure performed under direct supervision of attending Dr. Romero, who was present for all rasmussen portions of the procedure.Cristobal Guevara DO, PGY-5Pulmonary & Critical Care Medicine [place]92/14/24 4:04 PM ssociated attestation - Bessy Romero MD - 04/13/2024 4:22 PM CDT I was present for and immediately available for assistance with the entire procedure.46560-1Yzpegantr dgnaJY9011447UlkfpaBessy Romero1.2.840.530076.1.13.104.2.7.2. 473532EjfwfqRxnebjojMdkyrBB8960-71- 15T16:22:57Procedure noteTXT1.2.840.679769.1.13.104.2.7. 2.715169|[id number] for patient lqjs50733-0Zioaesfta noteLNNARRATIVEFormatted C-CDA narrative textUT[address] Lh[id number] 0HETOAHKFKJYSUHDRUWHHTM0732-70-13D7 6:22:571.2.840.333137.1.72.3.15|1.2 .840.009758.1.13.104.2.7.2.727879_2 [id number] [facility] 2024-04-07 12:45:57 0713-57-64N38:45:57F ormatting of this note might be different from the original.CHEST TUBE PLACEMENT - PULMONARY/CRITICAL CAREDate of Service: 04/07/2024Indication/Diagnosis: Recurrent Pleural EffusionConsent source: selfConsent type: elective procedure and indications/complications discussed with; written consent obtained and placed in the chartPreProcedure Verification Completed : YesSite Marking Completed : YesTime Out Completed : Yes.Aseptic technique: ChlorhexidineComplications: noneNarrative:Ultrasound of the left mid axillary area revealed a pocket of pleural fluid with fibrin debri. The site was marked and the area was prepped and draped in the usual sterile fashion. 30 cc's of 1 % lidocaine was administered in the same area localized by ultrasound for local anesthesia. The skin overlying the marked space was incised into the subcutaneous tissue. Pleural fluid was recovered from the pleural space and a 14 Fr. thoracostomy tube was inserted and secured in place.The patient tolerated the procedure well without complications. The chest tube is to be attached to a pleuraVac with suction.Dr. Champagne was present throughout the entire procedure.Post procedure chest xray ordered.Please leave chest tube to waterseal. Pulmonary consult to follow.Tatiana Carmen MD PGY-4Pulmonary & Critical Care Fellow ssociated attestation - Leo Champagne MD - 04/13/2024 10:07 AM CDT Attestation:Today 07 Apr 2024 I supervised and attended this tube thoracostomy by Dr Carmen and MS3 Carie. I agree with the indications and documentation.RIP16858-1Ithtojrbw goyjRU1470433ZbqmxroLeo Champagne1.2.840.124345.1.13.104.2.7.2. 630454HugbwrwHgodsanUexurUO4357-50- 15T10:07:52Procedure noteTXT1.2.840.709608.1.13.104.2.7. 2.924964|[id number] for patient qbxs68114-9Tgtndqilc noteLNNARRATIVEFormatted C-CDA narrative textUTMBRUST - [address] StreetOr[id number] 6JQPEBXBEOAONLYGTIPNIXU9567-00-25G5 0:07:521.2.840.250416.1.72.3.15|1.2 .840.104655.1.13.104.2.7.2.727879_2 [id number] [facility] 2024-04-01 14:32:59 9490-74-66O18:32:59F ormatting of this note might be different from the original.PROCEDURE NOTEUltrasound Guided ThoracentesisFACULTY: Onelia Champagne MDFELLOW: JAYA PerezREOPERATIVE DIAGNOSIS: symptomatic left pleural effusionDESCRIPTION OF PROCEDURE:Ultrasound of the left posterior chest area revealed a large pocket of pleural fluid. The site was marked and the area was prepped and draped in the usual sterile fashion. 10 cc of 1% lidocaine wo epinephrine was placed in the same area localized by ultrasound for local anesthesia. The needle with catheter was inserted just over the inferior rib perpendicular to the skin surface while applying negative pressure and advanced until pleural fluid was obtained. The catheter was advanced while the needle was removed. The catheter was attached to a collection container and 1300 cc of clear straw colored fluid was removed. The patient tolerated the procedure well without complications. The pleural fluid was sent for chemistries, cell count, pH, and cultures.Dr. Onelia Champagne was available for the entire procedure.Post procedure chest xray ordered.COMPLICATIONS: NoneIMPRESSION: Successful ultrasound guided thoracentesisMichael Tamanna Asif M.D.Dept. Pulmonary Critical QgowUSR7Magnzriqzlqtaa signed by Leo Champagne MD at 04/04/2024 1:35 PM CDTAssociated attestation - Leo Champagne MD - 04/04/2024 1:35 PM CDT Attestation:Today 01 Apr 2024 I attended and supervised this procedure with Dr Asif. I agree with the indications and documentation.CSM61270-5Yxhumpgon sfekRS7479121PhuxsueLeo Champagne1.2.840.004752.1.13.104.2.7.2. 885091PzgbvkgQhojbrxGwlafPI0393-99- 06T13:35:52Procedure noteTXT1.2.840.977250.1.13.104.2.7. 2.703568|[id number] for patient lxya90719-1Wogwqyivz noteLNNARRATIVEFormatted C-CDA narrative textIM-INTERNAL MEDICINE-INTERNAL MEDICINE[address] Wr[id number] 1CIWJUJPNPZRKAPPSVBAYKR8136-94-19F1 3:35:521.2.840.301522.1.72.3.15|1.2 .840.348825.1.13.104.2.7.2.727879_2 [id number] IM-INTERNAL MEDICINE [facility] Date/Time Note Provider Source 2024-04-15 12:09:58 4786-14-44Y00:09:58F ormatting of this note might be different from the original.TRANSITIONAL CARE MANAGEMENT ASSESSMENT04/15/2024Charly Neale352532QHolnico Bridges is a 59 year old /White female was admitted on 03/31/[address] She was discharged on 04/14/24 with discharge disposition of HR- Routine Discharge.Admitting Physician: Ronald Zuluaga Diagnosis: Malignant lung neoplasm c/b total left lung collapse and tissue necrosisNo linked episodesTCM Wnn-nchl-fn-face outreach documentation:Discharge AssessmentChart Assessed: 04/15/24Chart Reviewed - Post Discharge Call Deferred due to Change in Discharge Status.: Discharged to Hospice (Hospice Care Team)Future Appointments: 56677-8Ldbcmyhzj encounter JguoFQ4304-20-74G93:10:21Telephone encounter NoteTXT1.2.840.426022.1.13.104.2.7 .2.008639|[id number] for patient wxnp47564-5MtcjCJZXDYRYNFXYnylomqb d C-CDA narrative elqq642337758Ymkqug M Manrique RN[address]vdG[id number] 16TXIHYIRNFFBPRWWTXTMCPQ2732-82-64 T12:10:211.2.840.631666.1.72.3.15| 1.2.840.761528.1.13.104.2.7.2.7278 [id number] Jaqueline Barnes RN [facility] 2024-04-14 07:53:10 7238-87-60B17:53:10F ormatting of this note might be different from the original.Problem: Falls, Risk ofGoal: Absence of falls04/14/2024 075 by Xenia Xiong RNOutcome: Adequate for discharge04/14/2024 0739 by Xenia Xiong RNOutcome: Progressing as expectedProblem: Discharge PlanningGoal: Adequate for discharge04/14/2024 0753 by Xenia Xiong RNOutcome: Adequate for discharge04/14/2024 0739 by Xenia Xiong RNOutcome: Progressing as expectedProblem: PainGoal: Control of pain at or below patient's documented comfort goal04/14/2024 0753 by Xenia Xiong RNOutcome: Adequate for discharge04/14/2024 0739 by Xenia Xiong RNOutcome: Progressing as expectedGoal: Reduction in pain sensation04/14/2024 0753 by Xenia Xiong RNOutcome: Adequate for discharge04/14/2024 0739 by Xenia Xiong RNOutcome: Progressing as expectedProblem: Respiratory Function - ImpairedGoal: Able to cough effectively04/14/2024 0753 by Xenia Xiong RNOutcome: Adequate for discharge04/14/2024 0739 by Xenia Xiong RNOutcome: Progressing as expectedGoal: Adequate oxygenation04/14/2024 075 by Xenia Xiong RNOutcome: Adequate for discharge04/14/2024 0739 by Xenia Xiong RNOutcome: Progressing as expectedProblem: Procedure RoutineGoal: Knowledge of procedure04/14/2024 0753 by Xenia Xiong RNOutcome: Adequate for discharge04/14/2024 0739 by Xenia Xiong RNOutcome: Progressing as expected 34017-8Ydjb of care fpmyIF5604-54-70L92:53:18Plan of care noteTXT1.2.840.229468.1.13.104.2.7 .2.136048|[id number] for patient gqgm10035-2VuunRJWWLQJLLUQZhmlqugn d C-CDA narrative [id number] C Frost RN[id number] 25CZOKEISTDRFTGQNDSTMGJL8294-97-18 T07:53:181.2.840.569878.1.72.3.15| 1.2.840.806297.1.13.104.2.7.2.7278 [id number] Xenia Xiong RN [facility] 2024-04-14 07:39:53 2159-60-82W33:39:53F ormatting of this note might be different from the original.Problem: Falls, Risk ofGoal: Absence of fallsOutcome: Progressing as expectedProblem: Discharge PlanningGoal: Adequate for dischargeOutcome: Progressing as expectedProblem: PainGoal: Control of pain at or below patient's documented comfort goalOutcome: Progressing as expectedGoal: Reduction in pain sensationOutcome: Progressing as expectedProblem: Respiratory Function - ImpairedGoal: Able to cough effectivelyOutcome: Progressing as expectedGoal: Adequate oxygenationOutcome: Progressing as expectedProblem: Respiratory Function - ImpairedGoal: Able to cough effectivelyOutcome: Progressing as expectedGoal: Adequate oxygenationOutcome: Progressing as expectedGoal: Adequate work of breathingOutcome: Progressing as expectedGoal: Patent airwayOutcome: Progressing as expectedProblem: Procedure RoutineGoal: Knowledge of procedureOutcome: Progressing as expected 26677-3Vtli of care pveiPO1823-08-00G86:40:11Plan of care noteTXT1.2.840.512327.1.13.104.2.7 .2.078639|[id number] for patient qsix11047-9EiprDNMOPRAPDRKTyxzhvax d C-CDA narrative text[address] [id number] 58LSKNEFAXFYSQNWZYKMAZZG0593-84-42 T07:40:111.2.840.432013.1.72.3.15| 1.2.840.554297.1.13.104.2.7.2.7278 [id number] [facility] 2024-04-13 19:35:00 0613-04-39F26:35:00F ormatting of this note might be different from the original.Problem: Falls, Risk ofGoal: Absence of fallsOutcome: Progressing as expectedProblem: Discharge PlanningGoal: Adequate for dischargeOutcome: Progressing as expectedProblem: PainGoal: Control of pain at or below patient's documented comfort goalOutcome: Progressing as expectedGoal: Reduction in pain sensationOutcome: Progressing as expectedProblem: Respiratory Function - ImpairedGoal: Able to cough effectivelyOutcome: Progressing as expectedGoal: Adequate oxygenationOutcome: Progressing as expected 14017-0Vbfh of care ppbnAY3054-93-50N65:35:05Plan of care noteTXT1.2.840.049798.1.13.104.2.7 .2.662169|7719912668HQTfohryhmu for patient ymcp90380-3ZnznXVRCDPEFGGBVdqsptrt d C-CDA narrative fwkh363082910YxaaczAna Reece RNUT[address] [id number] 69KTDHREZWPRXRAZICAXORHC0193-83-20 T00:35:051.2.840.715641.1.72.3.15| 1.2.840.231309.1.13.104.2.7.2.7278 [id number] Ana Reece RN [facility] 2024-04-13 19:08:32 4543-40-53F51:08:32F ormatting of this note might be different from the original.A patient w/ normal wob. 34638-1Efbd of care idkaMX9162-78-47Z42:08:47Plan of care noteTXT1.2.840.664166.1.13.104.2.7 .2.632445|[id number] for patient grxe69051-2QfvvPMNBLMMXUPZVscstkug d C-CDA narrative ziwv886412234Opty T Dao RT[address] SrnmSsvmpyfnuVsotshpfuTXZR00168549 15KUQWRTNZGTEETIMVARXZIX3892-82-39 T19:08:471.2.840.159548.1.72.3.15| 1.2.840.957252.1.13.104.2.7.2.7278 [id number] Cody Curran RT [facility] 2024-04-13 15:51:42 9364-25-06M10:51:42F ormatting of this note is different from the original.Care Management Discharge Disposition Note (DCDN)5-2-1 Interventions: Disease specific education, Intensive medication reconciliation/management, Teach back, Appropriate palliative care referral, Clear discharge plan, Follow-up appointments, Follow-up phone calls5-2-1 Providers: Environmental Permitting Specialist/Contract Recruiter, Nurse, Dfzwegykk2-3-6 Patient Capacity Improvements: Avoidance of adverse events/readmissionDiscussed with patient/patient s family involved in decision making: Patient or family caregiver understands, and agrees with discharge planPatient's family or support contact: Rossy Recio/friend/[phone] e Plan for ongoing care and services: Hospice, Home/Caregiver HomeDischarge Location:Hospice location: Hospice Care Team, [address] [place] [address] [address] , [address], [place], [place] () [phone] (F) [phone] Home/Caregiver address: [address] [place], [place] [id number]:Private VehicleDischarge MedicationsWill the patient be able to obtain his medications? YesDoes the patient have transportation to to obtain the prescription medications? YesExpected discharge date: 04/14/24 Time: 0900Name of RN informed of discharge: Xenia Xiong CAdditional Information: Hospice Care Team to admit on 04/14. Pt's ride will at [facility] to pick pt up at 9am on 04/14. Pt has been provided with information on applying for [place] benefits as well as the [facility].CM/KAYLIE Name & Contact number:Emperatriz Rebollar LMSW, [facility]-Care Management-Social [phone] Care Management Weekend Moy following information has been provided to the facility noted above: reason for the patient discharge or transfer; patient s physical and psychosocial status; summary of care, treatment, services provided to patient; and the patient progress toward goals. 85915-5Senabzyde afiksneYX8092-27-34Y17:51:57Discha rge summaryTXT1.2.840.192589.1.13.104. 2.7.2.040769|[id number] for patient nsrl39869-4TbjeLSPHYGFSXWHBvquwwdw d C-CDA narrative textUT[address] IqjzEzoymuagjFuencmxwnPBKL71116437 77QDVLGATZDLJQYBCBPQERRZ7664-32-83 T15:51:571.2.840.507135.1.72.3.15| 1.2.840.772654.1.13.104.2.7.2.7278 [id number] [facility] 2024-04-13 08:00:10 6807-60-59W13:00:10F ormatting of this note might be different from the original.Problem: Falls, Risk ofGoal: Absence of fallsOutcome: Progressing as expectedProblem: Discharge PlanningGoal: Adequate for dischargeOutcome: Progressing as expectedProblem: PainGoal: Control of pain at or below patient's documented comfort goalOutcome: Progressing as expectedGoal: Reduction in pain sensationOutcome: Progressing as expectedProblem: Respiratory Function - ImpairedGoal: Able to cough effectivelyOutcome: Progressing as expectedGoal: Adequate oxygenationOutcome: Progressing as expectedProblem: Procedure RoutineGoal: Knowledge of procedureOutcome: Progressing as expected 62745-0Obkj of care qpjpEX8875-61-83I06:00:17Plan of care noteTXT1.2.840.307887.1.13.104.2.7 .2.603453|[id number] for patient zhxf80142-1RcrfFELJDBRUXSIVyvokdwx d C-CDA narrative [address]G[id number] 12RDMRGWSNHNAOTSAHUJGYJM3582-84-33 T08:00:171.2.840.940349.1.72.3.15| 1.2.840.905917.1.13.104.2.7.2.7278 [id number] [facility] 2024-04-12 19:25:00 0139-47-30S24:25:00F ormatting of this note might be different from the original.Problem: Falls, Risk ofGoal: Absence of fallsOutcome: Progressing as expectedProblem: Discharge PlanningGoal: Adequate for dischargeOutcome: Progressing as expectedProblem: PainGoal: Control of pain at or below patient's documented comfort goalOutcome: Progressing as expectedGoal: Reduction in pain sensationOutcome: Progressing as expectedProblem: Respiratory Function - ImpairedGoal: Able to cough effectivelyOutcome: Progressing as expectedGoal: Adequate oxygenationOutcome: Progressing as expectedProblem: Procedure RoutineGoal: Knowledge of procedureOutcome: Progressing as expected 89270-7Vuoe of care oeaeGN3382-41-81E93:25:16Plan of care noteTXT1.2.840.421755.1.13.104.2.7 .2.340934|3742307024QZKddifdafo for patient zlbm92394-5RuxvXAHVQPBOPGHUejandhh d C-CDA narrative [id number] 67MOASQJYFHDXFZDJVNLAWKF2244-63-01 T01:25:161.2.840.790078.1.72.3.15| 1.2.840.282716.1.13.104.2.7.2.7278 [id number] [facility] 2024-04-12 07:34:23 5429-78-74F43:34:23F ormatting of this note might be different from the original.Problem: Falls, Risk ofGoal: Absence of fallsOutcome: Progressing as expectedProblem: Discharge PlanningGoal: Adequate for dischargeOutcome: Progressing as expectedProblem: PainGoal: Control of pain at or below patient's documented comfort goalOutcome: Progressing as expectedGoal: Reduction in pain sensationOutcome: Progressing as expectedProblem: Respiratory Function - ImpairedGoal: Able to cough effectivelyOutcome: Progressing as expectedGoal: Adequate oxygenationOutcome: Progressing as expectedProblem: Procedure RoutineGoal: Knowledge of procedureOutcome: Progressing as expected 34076-8Drqm of care zzviZH4277-95-52Z07:34:32Plan of care noteTXT1.2.840.562094.1.13.104.2.7 .2.209530|2955924067WWQcdajlblj for patient illh43152-6GbqiMAXIFQPETPDAehrmznc d C-CDA narrative [address]vdG[id number] 18NXKFZQVJLEWZXPBOJLYLTH5426-55-75 T07:34:321.2.840.074908.1.72.3.15| 1.2.840.172115.1.13.104.2.7.2.7278 [id number] [facility] 2024-04-11 22:41:47 0362-68-30E34:41:47F ormatting of this note might be different from the original.Problem: Falls, Risk ofGoal: Absence of falls04/11/20242240 by Galina Jefferson RNOutcome: Progressing as expected04/11/20242240 by Galina Jefferson RNOutcome: Progressing as expectedProblem: Discharge PlanningGoal: Adequate for discharge04/11/20242240 by Galina Jefferson RNOutcome: Progressing as expected04/11/20242240 by Galina Jefferson RNOutcome: Progressing as expectedProblem: PainGoal: Control of pain at or below patient's documented comfort goal04/11/20242240 by Galina Jefferson RNOutcome: Progressing as expected04/11/20242240 by Galina Jefferson RNOutcome: Progressing as expectedGoal: Reduction in pain sensation04/11/20242240 by Galina Jefferson RNOutcome: Progressing as expected04/11/20242240 by Galina Jefferson RNOutcome: Progressing as expectedProblem: Respiratory Function - ImpairedGoal: Able to cough effectively04/11/20242240 by Galina Jefferson RNOutcome: Progressing as expected04/11/20242240 by Galina Jefferson RNOutcome: Progressing as expectedGoal: Adequate oxygenation04/11/20242240 by Zerrudo, Galina, RNOutcome: Progressing as expected04/11/2024 2241 by Galina Jefferson RNOutcome: Progressing as expectedProblem: Procedure RoutineGoal: Knowledge of procedureOutcome: Progressing as expected 28900-5Bfcn of care fkjiUP3590-52-91V09:41:50Plan of care noteTXT1.2.840.366449.1.13.104.2.7 .2.615112|1832114068ZMOkfihdtjx for patient javq88762-8OxwfQWMBPGLOWDKKuftcnfm d C-CDA narrative wiqg167771681Ulmswmds Zerrudo RN[address]TXTX[address] 05RCPUISLNAXQBIYQZJWFVNH3850-34-91 T22:41:501.2.840.998078.1.72.3.15| 1.2.840.014690.1.13.104.2.7.2.7278 [id number] Galina Jefferson RN [facility] 2024-04-11 10:22:46 3692-07-83I97:22:46F ormatting of this note might be different from the original.Problem: Falls, Risk ofGoal: Absence of fallsOutcome: Progressing as expectedProblem: PainGoal: Control of pain at or below patient's documented comfort goalOutcome: Progressing as expectedGoal: Reduction in pain sensationOutcome: Progressing as expectedProblem: Respiratory Function - ImpairedGoal: Able to cough effectivelyOutcome: Progressing as expectedGoal: Adequate oxygenationOutcome: Progressing as expected 97430-1Zvyk of care sodoYP8704-35-48Z90:22:50Plan of care noteTXT1.2.840.109912.1.13.104.2.7 .2.073575|1896657953CEBurgutggq for patient rnym15690-4QkjgYNAFXRQWPNNGtcpczba d C-CDA narrative cznm657297694YympCasimiro Celaya RN[address]vestonTXTX[address] 22NATDTOVPOOBXJVWWRRLCBU4342-25-36 T10:22:501.2.840.877752.1.72.3.15| 1.2.840.042523.1.13.104.2.7.2.7278 [id number] JvPiero Celaya RN [facility] 2024-04-10 19:34:32 2928-82-42K91:34:32F ormatting of this note might be different from the original.Problem: Falls, Risk ofGoal: Absence of fallsOutcome: Progressing as expectedProblem: Discharge PlanningGoal: Adequate for dischargeOutcome: Progressing as expectedProblem: PainGoal: Control of pain at or below patient's documented comfort goalOutcome: Progressing as expectedGoal: Reduction in pain sensationOutcome: Progressing as expectedProblem: Respiratory Function - ImpairedGoal: Able to cough effectivelyOutcome: Progressing as expectedGoal: Adequate oxygenationOutcome: Progressing as expected 18664-2Hnwk of care ydglGZ8997-80-14C16:34:34Plan of care noteTXT1.2.840.693857.1.13.104.2.7 .2.802672|7997567611KWHyvcntlzk for patient cxfx43311-1UpbkKCONNTLARORGwxhmfgh d C-CDA narrative cspb642203931Amtkbc Cesar Magno RN[address]TXTX[address] 46CQWXITJKCPYSVMVQTTOVEI7883-61-75 T19:34:341.2.840.066916.1.72.3.15| 1.2.840.438397.1.13.104.2.7.2.7278 [id number] Chris Rodriguez RN [facility] 2024-04-10 13:26:46 4677-42-59U57:26:46F ormatting of this note might be different from the original.Problem: Falls, Risk ofGoal: Absence of fallsOutcome: Progressing as expectedProblem: PainGoal: Control of pain at or below patient's documented comfort goalOutcome: Progressing as expectedGoal: Reduction in pain sensationOutcome: Progressing as expectedProblem: Respiratory Function - ImpairedGoal: Able to cough effectivelyOutcome: Progressing as expectedGoal: Adequate oxygenationOutcome: Progressing as expected 75742-1Vkwx of care epkmIR0661-13-54X43:26:51Plan of care noteTXT1.2.840.285985.1.13.104.2.7 .2.727830|0502713210OFQqpmaxjbg for patient adjo08138-1DeckFOEPDDCVBVBXxlsoseu d C-CDA narrative text[address]TXTX[address] 06LYEMMTHUQJRLDKEDCHVVTG0194-42-49 T13:26:511.2.840.968525.1.72.3.15| 1.2.840.394290.1.13.104.2.7.2.7278 [id number] [facility] 2024-04-09 23:16:47 0344-67-21W04:16:47F ormatting of this note might be different from the original.Problem: Falls, Risk ofGoal: Absence of fallsOutcome: Progressing as expectedProblem: Discharge PlanningGoal: Adequate for dischargeOutcome: Progressing as expectedProblem: PainGoal: Control of pain at or below patient's documented comfort goalOutcome: Progressing as expectedGoal: Reduction in pain sensationOutcome: Progressing as expectedProblem: Respiratory Function - ImpairedGoal: Able to cough effectivelyOutcome: Progressing as expectedGoal: Adequate oxygenationOutcome: Progressing as expected 16446-5Ccht of care xiodHT5908-37-42C37:16:49Plan of care noteTXT1.2.840.477573.1.13.104.2.7 .2.262775|6539141130NAKkwiozljt for patient rqnb77348-9XcvsPHUDCPKSYXAAfzaxksq d C-CDA narrative zbsg208023594Wzlahqxd Jett Harding [address]TXTX[address] 78KPUNUQLGQQICVBPBEPOKYH3881-87-53 T23:16:491.2.840.904254.1.72.3.15| 1.2.840.976479.1.13.104.2.7.2.7278 [id number] Crystal Frausto Meaghan [facility] 2024-04-09 07:40:32 1304-76-19R10:40:32F ormatting of this note might be different from the original.Problem: Falls, Risk ofGoal: Absence of fallsOutcome: Progressing as expectedProblem: Discharge PlanningGoal: Adequate for dischargeOutcome: Progressing as expectedProblem: PainGoal: Control of pain at or below patient's documented comfort goalOutcome: Progressing as expectedGoal: Reduction in pain sensationOutcome: Progressing as expectedProblem: Respiratory Function - ImpairedGoal: Able to cough effectivelyOutcome: Progressing as expectedGoal: Adequate oxygenationOutcome: Progressing as expected 13527-5Ztdn of care lzkdAO8279-44-11L95:40:38Plan of care noteTXT1.2.840.743771.1.13.104.2.7 .2.235823|0620087918BVLdndgvcah for patient vslv86725-6HztjAROCBFHRJUYMqfwzxtb d C-CDA narrative kxcj352089712OtejuJeff Subramanian RN[address]TXTX[address] 64YIHKFAOPWKPYXSLIHWYJNR6768-01-93 T07:40:381.2.840.889154.1.72.3.15| 1.2.840.233598.1.13.104.2.7.2.7278 [id number] Jeff Subramanian RN [facility] 2024-04-09 04:40:09 1340-34-69C44:40:09F ormatting of this note might be different from the original.Problem: Falls, Risk ofGoal: Absence of fallsOutcome: Progressing as expectedProblem: Discharge PlanningGoal: Adequate for dischargeOutcome: Progressing as expectedProblem: PainGoal: Control of pain at or below patient's documented comfort goalOutcome: Progressing as expectedGoal: Reduction in pain sensationOutcome: Progressing as expectedProblem: Respiratory Function - ImpairedGoal: Able to cough effectivelyOutcome: Progressing as expectedGoal: Adequate oxygenationOutcome: Progressing as expected 80241-0Hrpi of care dxcsAL6316-89-99X93:40:15Plan of care noteTXT1.2.840.038188.1.13.104.2.7 .2.815643|4906435672UDFiwfrzlxm for patient dljz60486-4XmyfNYUABMXQLWQRcwnmcci d C-CDA narrative text[address] QckuSojyqcfdgAyhfyhugeZPDZ10933405 38GKTVEFDFTQKKISUGCVFLIN8475-00-87 T04:40:151.2.840.702943.1.72.3.15| 1.2.840.367304.1.13.104.2.7.2.7278 [id number] [facility] 2024-04-08 07:40:32 9603-82-98J44:40:32F ormatting of this note might be different from the original.Problem: Falls, Risk ofGoal: Absence of fallsOutcome: Progressing as expectedProblem: Discharge PlanningGoal: Adequate for dischargeOutcome: Progressing as expectedProblem: PainGoal: Control of pain at or below patient's documented comfort goalOutcome: Progressing as expectedGoal: Reduction in pain sensationOutcome: Progressing as expectedProblem: Respiratory Function - ImpairedGoal: Able to cough effectivelyOutcome: Progressing as expectedGoal: Adequate oxygenationOutcome: Progressing as expected 14791-8Cegq of care axmuHY3892-14-21D68:40:38Plan of care noteTXT1.2.840.602752.1.13.104.2.7 .2.479730|[id number] for patient aupo28822-7EtumOOBKUZMRLAUBdxoycrm d C-CDA narrative [id number] 44SSMZRUDCXUGMUVYQFBQBMU7157-10-29 T07:40:381.2.840.291087.1.72.3.15| 1.2.840.475128.1.13.104.2.7.2.7278 [id number] [facility] 2024-04-08 07:21:08 9532-76-06C18:21:08F ormatting of this note might be different from the original.Problem: Falls, Risk ofGoal: Absence of falls04/08/2024720 by Iza Pérez RNOutcome: Progressing as expected04/08/202441 by Iza Pérez RNOutcome: Progressing as expectedProblem: Discharge PlanningGoal: Adequate for discharge04/08/2024720 by Iza Pérez RNOutcome: Progressing as expected04/08/202441 by Iza Pérez RNOutcome: Progressing as expectedProblem: PainGoal: Control of pain at or below patient's documented comfort goal04/08/2024720 by Iza Pérez RNOutcome: Progressing as expected04/08/202441 by Iza Pérez RNOutcome: Progressing as expectedGoal: Reduction in pain sensation04/08/2024720 by Iza Pérez RNOutcome: Progressing as expected04/08/202441 by Iza Pérez RNOutcome: Progressing as expectedProblem: Respiratory Function - ImpairedGoal: Able to cough effectively04/08/2024720 by Iza Pérez RNOutcome: Progressing as expected04/08/202441 by Iza Pérez RNOutcome: Progressing as expectedGoal: Adequate oxygenation04/08/2024720 by Iza Pérez RNOutcome: Progressing as expected04/08/202441 by Iza Pérez RNOutcome: Progressing as expected 14916-4Ogpy of care oocaPH9004-86-93J15:21:10Plan of care noteTXT1.2.840.902989.1.13.104.2.7 .2.082809|[id number] for patient kofa54475-8HdisYULYHLDLGICDqclxmnn d C-CDA narrative [id number] Pérez RN[id number] 78SYSIXJBHAXKPGYVHPRNGBX5768-47-62 T07:21:101.2.840.305794.1.72.3.15| 1.2.840.866963.1.13.104.2.7.2.7278 [id number] Iza Pérez [facility] 2024-04-08 00:42:46 5383-20-26D64:42:46F ormatting of this note might be different from the original.Problem: Falls, Risk ofGoal: Absence of fallsOutcome: Progressing as expectedProblem: Discharge PlanningGoal: Adequate for dischargeOutcome: Progressing as expectedProblem: PainGoal: Control of pain at or below patient's documented comfort goalOutcome: Progressing as expectedGoal: Reduction in pain sensationOutcome: Progressing as expectedProblem: Respiratory Function - ImpairedGoal: Able to cough effectivelyOutcome: Progressing as expectedGoal: Adequate oxygenationOutcome: Progressing as expected 52339-4Uaun of care gpqfPJ3355-84-97Q58:42:49Plan of care noteTXT1.2.840.532306.1.13.104.2.7 .2.893181|[id number] for patient qccl65229-0SdagNEZFAHNREIPWskgpyld d C-CDA narrative [id number] 34VJDJMORTUGFWRCICSEVSGG9988-72-58 T00:42:491.2.840.674294.1.72.3.15| 1.2.840.369348.1.13.104.2.7.2.7278 [id number] [facility] 2024-04-07 09:40:47 5673-84-33Q23:40:47F ormatting of this note might be different from the original.Problem: Falls, Risk ofGoal: Absence of fallsOutcome: Progressing as expectedProblem: Discharge PlanningGoal: Adequate for dischargeOutcome: Progressing as expectedProblem: PainGoal: Control of pain at or below patient's documented comfort goalOutcome: Progressing as expectedGoal: Reduction in pain sensationOutcome: Progressing as expectedProblem: Respiratory Function - ImpairedGoal: Able to cough effectivelyOutcome: Progressing as expectedGoal: Adequate oxygenationOutcome: Progressing as expected 96837-6Wktb of care iyjfBC8246-98-28H90:40:53Plan of care noteTXT1.2.840.705496.1.13.104.2.7 .2.242150|[id number] for patient aedz02668-4MtpvSJHCFDWATZFUiklvgwo d C-CDA narrative textUTMB26 [address] [id number] 02JHDDBQAAZXOYSHSXTNMJQT5177-77-27 T09:40:531.2.840.992570.1.72.3.15| 1.2.840.946308.1.13.104.2.7.2.7278 [id number] [facility] 2024-04-06 20:23:13 2426-10-28I37:23:13F ormatting of this note might be different from the original.Problem: Falls, Risk ofGoal: Absence of fallsOutcome: Progressing as expectedProblem: Discharge PlanningGoal: Adequate for dischargeOutcome: Progressing as expectedProblem: PainGoal: Control of pain at or below patient's documented comfort goalOutcome: Progressing as expectedGoal: Reduction in pain sensationOutcome: Progressing as expectedProblem: Respiratory Function - ImpairedGoal: Able to cough effectivelyOutcome: Progressing as expectedGoal: Adequate oxygenationOutcome: Progressing as expected 25046-1Wejq of care yflkPU7280-67-04Q40:23:18Plan of care noteTXT1.2.840.023896.1.13.104.2.7 .2.615954|[id number] for patient rnjv77532-4FfzmEBQZHUTFJXJKrxawwfh d C-CDA narrative text[id number] 17KSLACSHYKGDPACXGFJBSBU8523-91-25 T20:23:181.2.840.190383.1.72.3.15| 1.2.840.393188.1.13.104.2.7.2.7278 [id number] [facility] 2024-04-05 19:18:11 0594-04-01Z03:18:11F ormatting of this note might be different from the original.Problem: Falls, Risk ofGoal: Absence of fallsOutcome: Progressing as expectedProblem: Discharge PlanningGoal: Adequate for dischargeOutcome: Progressing as expectedProblem: PainGoal: Control of pain at or below patient's documented comfort goalOutcome: Progressing as expectedGoal: Reduction in pain sensationOutcome: Progressing as expectedProblem: Respiratory Function - ImpairedGoal: Able to cough effectivelyOutcome: Progressing as expectedGoal: Adequate oxygenationOutcome: Progressing as expected 77439-1Lgji of care pbwmYE9164-14-19T65:18:13Plan of care noteTXT1.2.840.955052.1.13.104.2.7 .2.635131|[id number] for patient pfpd33936-5EfihVAOXUQXVXVYXalukrfe d C-CDA narrative text[id number] 17PQKNVMMWWHBYCLWPZEULWJ4305-48-27 T19:18:131.2.840.537711.1.72.3.15| 1.2.840.060173.1.13.104.2.7.2.7278 [id number] [facility] 2024-04-04 19:30:30 6325-67-82P86:30:30F ormatting of this note might be different from the original.Problem: Falls, Risk ofGoal: Absence of fallsOutcome: Progressing as expectedProblem: Discharge PlanningGoal: Adequate for dischargeOutcome: Progressing as expectedProblem: PainGoal: Control of pain at or below patient's documented comfort goalOutcome: Progressing as expectedGoal: Reduction in pain sensationOutcome: Progressing as expectedProblem: Respiratory Function - ImpairedGoal: Able to cough effectivelyOutcome: Progressing as expectedGoal: Adequate oxygenationOutcome: Progressing as expected 45878-9Zobr of care ahacHT8021-15-49W98:30:32Plan of care noteTXT1.2.840.217614.1.13.104.2.7 .2.638482|[id number] for patient ltnk34839-0OtgnJKKVCMPSFERCviuzczh d C-CDA narrative text[id number] 37PQTEYCQZRZQALXGEGJRMPV1868-89-00 T19:30:321.2.840.429813.1.72.3.15| 1.2.840.502556.1.13.104.2.7.2.7278 [id number] [facility] 2024-04-04 06:58:09 6030-66-61N46:58:09F ormatting of this note might be different from the original.Problem: Falls, Risk ofGoal: Absence of fallsOutcome: Progressing as expectedProblem: Discharge PlanningGoal: Adequate for dischargeOutcome: Progressing as expectedProblem: PainGoal: Control of pain at or below patient's documented comfort goalOutcome: Progressing as expectedGoal: Reduction in pain sensationOutcome: Progressing as expectedProblem: Respiratory Function - ImpairedGoal: Able to cough effectivelyOutcome: Progressing as expectedGoal: Adequate oxygenationOutcome: Progressing as expectedGoal: Adequate work of breathingOutcome: Resolved 07834-4Tnht of care hawhNK1853-16-32O30:58:16Plan of care noteTXT1.2.840.071602.1.13.104.2.7 .2.704912|[id number] for patient bybn98176-8VoahCSECHVIVZKWXylstdyz d C-CDA narrative [id number] SIMENTAL[id number] 66NAYLLEHMMLEVXZCKWHSJHB6971-83-37 T06:58:161.2.840.877279.1.72.3.15| 1.2.840.871496.1.13.104.2.7.2.7278 [id number] Elaine Land RN [facility] 2024-04-03 19:21:34 5051-96-93T20:21:34F ormatting of this note might be different from the original.Problem: Falls, Risk ofGoal: Absence of fallsOutcome: Progressing as expectedProblem: Discharge PlanningGoal: Adequate for dischargeOutcome: Progressing as expectedProblem: PainGoal: Control of pain at or below patient's documented comfort goalOutcome: Progressing as expectedGoal: Reduction in pain sensationOutcome: Progressing as expectedProblem: Respiratory Function - ImpairedGoal: Able to cough effectivelyOutcome: Progressing as expectedGoal: Adequate oxygenationOutcome: Progressing as expectedGoal: Adequate work of breathingOutcome: Progressing as expected 75810-7Kfoq of care gwpvRL5921-73-13G97:21:36Plan of care noteTXT1.2.840.847320.1.13.104.2.7 .2.591128|[id number] for patient uwyr61467-2IypkLMNBEKRDVUVPbiirzzq d C-CDA narrative [address] YbsoGhedgznboNlemnvwcnBVKI29707232 39GCVQGHVWHHSNKMIODVQHQQ4522-70-26 T19:21:361.2.840.843804.1.72.3.15| 1.2.840.325190.1.13.104.2.7.2.7278 [id number] [facility] 2024-04-03 07:27:28 7084-70-54W17:27:28F ormatting of this note might be different from the original.Problem: Falls, Risk ofGoal: Absence of fallsOutcome: Progressing as expectedProblem: Discharge PlanningGoal: Adequate for dischargeOutcome: Progressing as expectedProblem: PainGoal: Control of pain at or below patient's documented comfort goalOutcome: Progressing as expectedGoal: Reduction in pain sensationOutcome: Progressing as expected 05534-3Jbxt of care asmePX0517-89-33V10:27:35Plan of care noteTXT1.2.840.100634.1.13.104.2.7 .2.993954|[id number] for patient znft42520-8DbabYNJAVCYGOFCLmdmlyvh d C-CDA narrative [id number] 07SCGZWPOJLMLOPVLLJNYMJX8195-46-15 T07:27:351.2.840.089388.1.72.3.15| 1.2.840.630385.1.13.104.2.7.2.7278 [id number] [facility] 2024-04-02 19:17:59 1457-40-06Q99:17:59F ormatting of this note might be different from the original.Problem: Falls, Risk ofGoal: Absence of fallsOutcome: Progressing as expectedProblem: Discharge PlanningGoal: Adequate for dischargeOutcome: Progressing as expectedProblem: PainGoal: Control of pain at or below patient's documented comfort goalOutcome: Progressing as expectedGoal: Reduction in pain sensationOutcome: Progressing as expectedProblem: Respiratory Function - ImpairedGoal: Able to cough effectivelyOutcome: Progressing as expectedGoal: Adequate oxygenationOutcome: Progressing as expectedGoal: Adequate work of breathingOutcome: Progressing as expectedGoal: Patent airwayOutcome: Progressing as expected 99083-2Axlv of care kmozHG0679-84-70Z11:18:01Plan of care noteTXT1.2.840.036495.1.13.104.2.7 .2.626350|[id number] for patient fwvo25442-6PqtdFBHNZCUQDEHPfkrhsvm d C-CDA narrative [id number] 48FJKSRPIQXNCWPTAYDAYLBC5332-39-58 T19:18:011.2.840.917024.1.72.3.15| 1.2.840.573131.1.13.104.2.7.2.7278 [id number] [facility] 2024-04-02 07:21:19 7033-70-25G52:21:19F ormatting of this note might be different from the original.Problem: Falls, Risk ofGoal: Absence of fallsOutcome: Progressing as expectedProblem: Discharge PlanningGoal: Adequate for dischargeOutcome: Progressing as expectedGoal: Effective communicationOutcome: ResolvedProblem: PainGoal: Control of pain at or below patient's documented comfort goalOutcome: Progressing as expectedGoal: Reduction in pain sensationOutcome: Progressing as expectedProblem: Respiratory Function - ImpairedGoal: Able to cough effectivelyOutcome: Progressing as expectedGoal: Adequate oxygenationOutcome: Progressing as expectedGoal: Adequate work of breathingOutcome: Progressing as expectedGoal: Patent airwayOutcome: Progressing as expected 78138-9Qrob of care gtqbNH7785-43-37V81:21:25Plan of care noteTXT1.2.840.221950.1.13.104.2.7 .2.198845|[id number] for patient zgtj34483-7FuwbPECCEBEWRDFDlcnwrtu d C-CDA narrative text[address] Evoo[id number] 04OROTXDZUDRMIUAOZFIBPKW1068-19-01 T07:21:251.2.840.417919.1.72.3.15| 1.2.840.394862.1.13.104.2.7.2.7278 [id number] [facility] 2024-04-01 21:30:14 4241-74-25E48:30:14F ormatting of this note might be different from the original.Problem: Falls, Risk ofGoal: Absence of fallsOutcome: Progressing as expectedProblem: Discharge PlanningGoal: Adequate for dischargeOutcome: Progressing as expectedGoal: Effective communicationOutcome: Progressing as expectedProblem: PainGoal: Control of pain at or below patient's documented comfort goalOutcome: Progressing as expectedGoal: Reduction in pain sensationOutcome: Progressing as expectedProblem: Respiratory Function - ImpairedGoal: Able to cough effectivelyOutcome: Progressing as expectedGoal: Adequate oxygenationOutcome: Progressing as expectedGoal: Adequate work of breathingOutcome: Progressing as expectedGoal: Patent airwayOutcome: Progressing as expected 78212-2Eczl of care dhzxXC4852-65-39U25:30:16Plan of care noteTXT1.2.840.164892.1.13.104.2.7 .2.598027|1454224427TTXnoxocpje for patient pbsl58844-8ZnuoZHBOTXHTQHTMxbexuar d C-CDA narrative [id number] A Thiem RN[address]TXTX[address] 50VTFBRFHPTESLJHZLSOYCMS1521-66-60 T21:30:161.2.840.457681.1.72.3.15| 1.2.840.193943.1.13.104.2.7.2.7278 [id number] Marizol Canales RN [facility] 2024-04-01 08:20:34 9988-89-90O40:20:34F ormatting of this note might be different from the original.Problem: Falls, Risk ofGoal: Absence of fallsOutcome: Progressing as expectedProblem: Discharge PlanningGoal: Adequate for dischargeOutcome: Progressing as expectedGoal: Effective communicationOutcome: Progressing as expectedProblem: PainGoal: Control of pain at or below patient's documented comfort goalOutcome: Progressing as expectedGoal: Reduction in pain sensationOutcome: Progressing as expectedProblem: Respiratory Function - ImpairedGoal: Able to cough effectivelyOutcome: Progressing as expectedGoal: Adequate oxygenationOutcome: Progressing as expectedGoal: Adequate work of breathingOutcome: Progressing as expectedGoal: Patent airwayOutcome: Progressing as expected 25012-5Kgvd of care evgcQU6829-30-99M54:20:39Plan of care noteTXT1.2.840.471445.1.13.104.2.7 .2.558148|[id number] for patient miew63878-2WwvwHGHKVROOUXQXmmdyala d C-CDA narrative text[address]vdGal[address]onGalvestonTXTX[address] 46LTKOAHPVFZEOWHVVVUPKJG1352-62-07 T08:20:391.2.840.698838.1.72.3.15| 1.2.840.743974.1.13.104.2.7.2.7278 [id number] [facility] 2024-04-01 01:53:07 3491-08-31Y22:53:07F ormatting of this note might be different from the original.Problem: Falls, Risk ofGoal: Absence of fallsOutcome: Progressing as expectedProblem: Discharge PlanningGoal: Adequate for dischargeOutcome: Progressing as expectedGoal: Effective communicationOutcome: Progressing as expectedProblem: PainGoal: Control of pain at or below patient's documented comfort goalOutcome: Progressing as expectedGoal: Reduction in pain sensationOutcome: Progressing as expectedProblem: Respiratory Function - ImpairedGoal: Able to cough effectivelyOutcome: Progressing as expectedGoal: Adequate oxygenationOutcome: Progressing as expectedGoal: Adequate work of breathingOutcome: Progressing as expectedGoal: Patent airwayOutcome: Progressing as expected 04967-0Qplk of care hjyfDB3093-67-12R46:53:08Plan of care noteTXT1.2.840.257149.1.13.104.2.7 .2.563947|[id number] for patient wrfc38322-9YadpJXNLVTMUCCABzpemzgw d C-CDA narrative text[address]TXTX[address] 02GIPVOWGMBIUKHXGRUGMHDU5860-81-23 T01:53:081.2.840.122463.1.72.3.15| 1.2.840.070893.1.13.104.2.7.2.7278 [id number] [facility] 2024-03-31 23:19:43 3219-09-37D93:19:43F ormatting of this note might be different from the original.Patient transferred to [place] [address] for diagnosis of borderline low oxygen saturation level, pleural effusion on left, hypokalemia, malignant neoplasm of left lung, malignant pleural effusionPatient agrees to transfer/admit plan and verbalized understanding of plan of care, family aware of planPatient awake alert, oriented, resp reg unlabored NC 2 L, skin w/d PIV patent x2, no s/s infiltration noted,No adverse reaction to medications given while in ED.Report given to [facility] EMS personnel 82552-6Epplckqkt department DjruMD7170-38-69T98:21:13Emergency department NoteTXT1.2.840.707490.1.13.104.2.7 .2.162570|[id number] for patient dvzr45459-5AfzkOIVFVEYESMGBmjrumey d C-CDA narrative [id number] M Felix RNUT[id number] 25BZGWLYQDAHSWEUZUZSTHZB8884-86-30 T23:21:131.2.840.251121.1.72.3.15| 1.2.840.769537.1.13.104.2.7.2.7278 [id number] Neyda Harris RN [facility] 2024-03-31 22:52:09 2760-11-75Q48:52:09F ormatting of this note might be different from the original.Nurse ReportReport given to JOSEMANUEL. Chief complaint, assessment findings, infusion verify and orders reviewed. Plan of care discussed with patient and both nurses. Patient/family members [place] [address]-4Ykkezesym department RcdrOH2308-58-08A10:52:30[facility] department NoteTXT1.2.840.039768.1.13.104.2.7 .2.969080|[id number] for patient hyiu84621-7NdhyNIHYTXOZJTHQdzqrikq d C-CDA narrative textUT55 Tr[address] StreetPszkFswskximuXnbrmmkujSYRX72557553 27XYFAERVRIBXWTKNIYXQMMF2140-61-24 T22:52:301.2.840.079668.1.72.3.15| 1.2.840.629462.1.13.104.2.7.2.7278 [id number] [facility] 2024-03-31 18:47:05 8637-88-73L82:47:05F ormatting of this note might be different from the original.Patient arrived ambulatory for SOB since Thursday. Patient states her O2 was reading between 82%-88% at pcp office. Patient on 2L of own oxygen at the pcp office. Patient on her O2 here was 88%. Patient placed on our O2 at 2L is 97%. HX of COPD, CHF, chronic bronchitis. 23134-6Jzlswaejn department Triage ljubFL2320-69-65R44:57:36[facility] department Triage noteTXT1.2.840.701451.1.13.104.2.7 .2.715534|[id number] for patient gvul17285-9Wxiesukfg department NoteLNNARRATIVEFormatted C-CDA narrative [address] IffvXykecakjvOoztcwwvcVBFY24861652 34XQQLEWENCDISWUJLJADGDS1933-37-06 T18:57:361.2.840.474594.1.72.3.15| 1.2.840.058719.1.13.104.2.7.2.7278 [id number] [facility] 2024-03-31 18:36:00 3343-72-67L79:36:00F ormatting of this note is different from the original.[facility] Pereyra of : 1965 59 year oldMRN: [id number] Room:[address] Physician: CHICA Botello- HospitalPatient Escorted by: Self [9]Mode of Arrival: Personal means [1]EMS Treatment Prior to ED Arrival:WATER FILTRATION TECHNICIAN treatment: NoneED EventsDate/Time Event User Rzpooulw06/02/241841 Medical Screening Begins SIMBA SELLERS MD --03/31/241841 First Provider Evaluation SIMBA SELLERS MD --Chief ComplaintChief ComplaintPatient presents with Shortness of BreathED Triage Moni Ziegler RN 03/31/2024 18:57Patient arrived ambulatory for SOB since Thursday. Patient states her O2 was reading between 82%-88% at pcp office. Patient on 2L of own oxygen at the pcp office. Patient on her O2 here was 88%. Patient placed on our O2 at 2L is 97%. HX of COPD, CHF, chronic bronchitis.Original note by Moni Sarkar RN at 03/31/2024 18:54HPIHistory provided by: PatientShortness of BreathSeverity: ModerateOnset quality: GradualDuration: 4 daysTiming: ConstantChronicity: ChronicRelieved by: NothingWorsened by: NothingAssociated symptoms: no abdominal pain, no chest pain, no cough, no fever, no headaches, no vomiting and no wheezingPast Medical History / ImmunizationsNo past medical history on file.Tetanus received in last 5 years: NoChildhood immunizations: Ry-dz-rmiuUszb Surgical HistoryNo past surgical history on file.AllergiesNo Known AllergiesSocial HistorySubstance & Sexual ActivityNo substance use or sexual activity history on file.Review of SystemsReview of SystemsConstitutional: Negative. Negative for chills, fatigue, fever and unexpected weight change.HENT: Negative.Eyes: Negative. Negative for discharge and itching.Respiratory: Positive for shortness of breath. Negative for cough, chest tightness and wheezing.Cardiovascular: Negative. Negative for chest pain and palpitations.Gastrointestinal: Negative. Negative for abdominal distention, abdominal pain, nausea and vomiting.Genitourinary: Negative. Negative for dysuria, urgency, frequency and flank pain.Musculoskeletal: Negative.Skin: Negative. Negative for color change, pallor and wound.Neurological: Negative. Negative for dizziness, syncope, light-headedness and headaches.Psychiatric/Behavioral: Negative. Negative for agitation and behavioral problems.All other systems reviewed and are negative.Endocrine: Endocrine negativePhysical ExamED Triage Vitals [03/31/24 1852]Weight 89.4 kg (197 lb)Actual or estimated Estimated by patient/family reportHeight 1.626 m (5' 4")BP 121/72Pulse 87Resp 24Temp 37.1 ?C (98.8 ?F)Temp source OralSpO2 97 %Measured on On oxygenPhysical ExamVitals reviewed.Constitutional:Appearance : She is well-developed.HENT:Head: Normocephalic and atraumatic.Nose: Nose normal.Eyes:Conjunctiva/sclera: Conjunctivae normal.Neck:Trachea: No tracheal deviation.Cardiovascular:Rate and Rhythm: Normal rate and regular rhythm.Heart sounds: Normal heart sounds. No murmur heard.No friction rub.Pulmonary:Effort: Pulmonary effort is normal. No respiratory distress.Breath sounds: Decreased air movement present. No stridor. Examination of the left-upper field reveals decreased breath sounds. Examination of the left-middle field reveals decreased breath sounds. Examination of the left-lower field reveals decreased breath sounds. Decreased breath sounds present. No wheezing or rales.Abdominal:General: Bowel sounds are normal. There is no distension.Palpations: Abdomen is soft.Tenderness: There is no abdominal tenderness. There is no guarding or rebound.Musculoskeletal:General: Normal range of motion.Cervical back: Normal range of motion and neck supple.Skin:General: Skin is warm and dry.Neurological:Mental Status: She is alert and oriented to person, place, and time.Cranial Nerves: No cranial nerve deficit.Sensory: No sensory deficit.Psychiatric:Behavior: Behavior normal.Thought Content: Thought content normal.Judgment: Judgment normal.LabsLab ResultsCBC WITH DIFF - AbnormalResult Value Ref RangeWBC 12.14 (*) 4.30 - 11.10 10*3/?LRBC 3.53 (*) 3.93 - 5.25 10*6/?LHGB 9.8 (*) 11.6 - 15.0 g/dLHCT 32.0 (*) 35.7 - 45.2 %MCV 90.7 80.6 - 95.5 fLMCH 27.8 25.9 - 32.8 pgMCHC 30.6 (*) 31.6 - 35.1 g/dLRDW-SD 44.8 39.0 - 49.9 fLRDW-CV 13.3 12.0 - 15.5 %PLT 748 (*) 166 - 358 10*3/?LMPV 9.6 9.5 - 12.9 fLNRBC/100 WBC 0.0 0.0 - 10.0 /100 WBCsNRBC x10^3 <0.01 10*3/?LGRAN MAT (NEUT) % 74.7 %IMM GRAN % 0.60 %LYMPH % 12.4 %MONO % 10.0 %EOS % 1.4 %BASO % 0.9 %GRAN MAT x10^3(ANC) 9.08 (*) 1.88 - 7.09 10*3/uLIMM GRAN x10^3 0.07 (*) 0.00 - 0.06 10*3/uLLYMPH x10^3 1.50 1.32 - 3.29 10*3/uLMONO x10^3 1.21 (*) 0.33 - 0.92 10*3/uLEOS x10^3 0.17 0.03 - 0.39 10*3/uLBASO x10^3 0.11 (*) 0.01 - 0.07 10*3/uLCOMP. METABOLIC PANEL (35916) - AbnormalNA 136 135 - 145 mmol/LK 2.9 (*) 3.5 - 5.0 mmol/LCL 91 (*) 98 - 108 mmol/LCO2 TOTAL 39 (*) 23 - 31 mmol/LAGAP 6 2 - 16BUN 13 7 - 23 mg/dLGLUCOSE 113 (*) 70 - 110 mg/dLCREATININE 0.54 0.50 - 1.04 mg/dLTOTAL BILI 0.5 0.1 - 1.1 mg/dLCALCIUM 9.2 8.6 - 10.6 mg/[place] PROTEIN 7.3 6.3 - 8.2 g/dLALBUMIN 3.5 3.5 - 5.0 g/dLALK PHOS 126 (*) 34 - 122 U/LALTv 12 5 - 35 U/LAST(SGOT) 15 13 - 40 U/LeGFR 104.9 mL/min/1.73m2AC PANEL 20 + LACTIC ACID - AbnormalPH 7.48 (*) 7.35 - 7.45PCO2 43 35 - 45 mmHgPO2 82 80 - 100 mmHgHCO3 31 (*) 22 - 26 mEq/LBE 7.0 (*) -3.0 - 3.0 mEq/LTHB 10.6 (*) 12.0 - 16.0 g/dL%O2HB 96.5 94.0 - 99.0 %%COHB ART 0.3 0.0 - 1.5 %%METHB ART 0.1 (*) 0.4 - 1.5 %VOL%O2 ART 14.5 (*) 15.0 - 23.0 %NA 137 135 - 145 mmol/LK+ 3.1 (*) 3.5 - 5.0 mmol/LAC CA IONZ 4.60 4.50 - 5.30 mg/dLGLUCOSE 122 (*) 70 - 110 mg/dLLACTIC ACID 1.44 0.50 - 2.20 mmol/LTROPONIN I - NormalTROPONIN I 0.000 <=0.034 ng/mLN-TERMINAL PRO-BNP - NormalNT-proBNP 118 <=125 pg/mLImagingCT CHEST PULMONARY ANGIOGRAMPreliminary ResultPROCEDURE: CT CHEST WITH CONTRAST- CHEST PE PROTOCOLCLINICAL INDICATION: PE suspected, high pretest probCOMPARISON: Same day chest radiograph.TECHNIQUE: Volumetric helical CT angiogram was performed of the chest(lungapices to bases) with IV contrast. Corresponding axial, sagittal andcoronal MIP images were performed. Axial MIPs and coronal and sagittal MPRimages were generated and reviewed..FINDINGS:DEVICES: NoneHEART AND GREAT VESSELS: The opacification of the pulmonary vasculature isappropriate. No filling defects are seen through the level of thesegmentalpulmonary arteries. The pulmonary trunk is dilated measuring up to 3.5 cm.The thoracic aorta is normal in caliber.The heart is normal in size. No pericardial abnormalities are identified.The RV to LV is normal.MEDIASTINUM AND LOWER NECK: The left main bronchus is obstructed. Theesophagus is collapsed. The included thyroid gland appears normal.LUNGS, PLEURA AND LYMPH NODES: Ill-defined left hilar/perihilar mass isnoted measuring 5.4 x 5.1 x 5 cm. This mass obliterates the left mainbronchus and left pulmonary veins. Total left lung collapse is noted.Largeleft pleural effusion is seen. No pneumothorax is identified.Centrilobularand paraseptal emphysematous changes noted involving the right lung field.Multiple small right lung nodules measuring 3 mm and lessEnlarged right paraesophageal lymph node measuring 5.7 x 3.8 x 2.8 cm.Additional lymph node is seen at the level of the GE junction on the leftside and measures 3.1 x 2.5 x 1.9 cm. Additional mildly enlargedprevascular and right paratracheal lymph nodes are seen.The lungs are well-expanded and clear. No focal opacities are identified.No suspicious nodules. No pleural abnormality detected.VISUALIZED UPPER ABDOMEN: A 4 cm left adrenal nodule with mixed densitiesnoted.OSSEOUS STRUCTURES AND SOFT TISSUES: No focal osseous lesions aredetected.The soft tissues appear normal.IMPRESSION1. No evidence of pulmonary embolism through the level of the subsegmentalbranches. AIDOC (computer aided detection software) confirms no fillingdefects in the pulmonary artery branches2. A 5 cm left hilar/perihilar mass obstructing the left main bronchus andleft pulmonary veins resulting in complete left lung collapse. Findingslikely represent a primary lung neoplasm and less likely conglomeratemetastatic lymph nodes. Tissue sampling is recommended. Large left pleuraleffusion.3. Markedly enlarged paraesophageal lymph nodes concerning for metastases.4. Indeterminate small right lung nodules.5. Indeterminate left adrenal nodule.6. Dilated pulmonary trunk, can be seen with elevated pulmonary arterypressures.Preliminary Report Dictated by Resident: Jessica KrugerXR CHEST 1 VWFinal ResultPROCEDURE: XR CHEST 1 VWCLINICAL INDICATION: dyspneaCOMPARISON: NoneFINDINGS:Complete whiteout of the left lung is noted, likely large pleuraleffusion.No focal consolidation is identified in the right lung. No pneumothorax isidentified. The cardiomediastinal silhouette on the left is obliteratedotherwise appear shifted to the right which favors a large left pleuraleffusion as etiology for left thorax opacification.No acute bony abnormality.IMPRESSIONLarge left pleural effusion.Preliminary Report Dictated by Resident: Stephanie Draper MD., have reviewed this study and agree with theabovereport.Orders and TreatmentsOrders Placed This EncounterProcedures XR CHEST [address] CHEST PULMONARY ANGIOGRAM CBC WITH DIFF COMP. METABOLIC PANEL (68221) TROPONIN I N-TERMINAL PRO-BNP AC Panel 20 + Lactic AcidOrders Placed This EncounterMedications iopamidol (ISOVUE 370-500 mL) injection 80 mL KCL (KLOR-CON M20) tablet 40 mEq ondansetron (ZOFRAN (PF)) injection 4 mg FENTanyl PF (SUBLIMAZE (PF)) injection 50 mcgProceduresEKGTime 1853Rate 87Normal sinusAxis normalInterval normalNo acute ischemiaNotes & MDMPatient was evaluated for an emergency medical condition related to Shortness of BreathDDXCOPD exacerbationPneumoniaED Course as of 03/31/24March 31 Transfer initiated with [facility] [DN]ED Course User Index[DN] Simba Sellers MDDiagnosis/Impression as of 03/31/24 2226Borderline low oxygen saturation levelPleural effusion on leftHypokalemiaMalignant neoplasm of left lung, unspecified part of lungMalignant pleural effusionMedical Decision MakingProblems Addressed:Borderline low oxygen saturation level: acute illness or injuryHypokalemia: acute illness or injuryMalignant neoplasm of left lung, unspecified part of lung: acute illness or injuryMalignant pleural effusion: acute illness or injuryPleural effusion on left: acute illness or injuryAmount and/or Complexity of Data ReviewedLabs: ordered. Decision-making details documented in ED Course.Radiology: ordered and independent interpretation performed. Decision-making details documented in ED Course.ECG/medicine tests: ordered and independent interpretation performed. Decision-making details documented in ED Course.RiskPrescription drug management.Parenteral controlled substances.Limitations to patient care and compliance: none.Assessment/Summary:The patient is a 59-year-old female who presents for shortness of breath. She has complete whiteout of the left lung on chest x-ray. CT of her chest does demonstrate that she has a new lung mass with obstruction. She appears to have a malignant effusion. EKG does not demonstrate a STEMI or any ectopy. Troponin is negative. The patient will likely require thoracentesis and an oncology consult. The patient was accepted by Dr. Zuluaga in [place]. She was transferred in stable condition.History, physical exam findings, results of visit, differential diagnosis, medication regimens and plan of future care have been considered. Additional MDM may be found in the ED course. Differential diagnosis considered and final disposition made based on information gathered during evaluation and may not be completely ruled out or specifically listed. Vital signs were rechecked before final disposition.DiagnosisFinal diagnoses:[R79.81] Borderline low oxygen saturation level (Primary)[J90] Pleural effusion on left[E87.6] Hypokalemia[C34.92] Malignant neoplasm of left lung, unspecified part of lung[J91.0] Malignant pleural effusionDisposition & Follow UpED DispositionNoneThere are no discharge medications for this patient.Simba Sellers Jr. MDClinical Cut Lace Machine Operator ProfessorRUST Emergency DepartmentDragon Dictation Software is used frequently and may produce errors. Promptly contact for obvious discrepancies.Simba Sellers MD03/31/247 [id number] Emergency department [id number]:27:11Physician Emergency department [id number] for patient [id number] department NoteLNNARRATIVEFormatted C-CDA narrative textEMCARE EMERGENCY PHYSICIAN STAFFEMCARE EMERGENCY PHYSICIAN STAFF[address] [id number]:[id number]| [id number] [facility]
[2024-06-06 23:21] LABS: PT Prothrombin Time 16.3 SECONDS (9.4-12.5); Protime INR 1.5
[2024-06-06 23:26] LABS: ALT/SGPT 17 U/L (13-56); AST/SGOT 12 U/L (15-37); Albumin/Globulin Ratio 0.3 (1.1-1.8); Alkaline Phosphatase 230 U/L (45-117); BUN Blood Urea Nitrogen 11 mg/dL (7-18); Bicarbonate 30 mEq/L (21-32); Bilirubin Total 0.3 mg/dL (0.2-1.0); Globulin 5.9 g/dL (2.3-3.5); Glomerular Filtration Rate 103 ml/min (=/>90); Glucose Level 131 mg/dL (74-106); NT PRO-BNP 487 pg/mL (<125); Protein, Total 7.9 g/dL (6.4-8.2); Sodium Level 127 mEq/L (136-145); Troponin High Sensitivity 7.8 pg/mL (<58.9)
[2024-06-06 23:39] LABS: Hematocrit 23.4 % (36.0-45.0); Hemoglobin 7.1 g/dL (12.0-15.0); RBC Red Blood Cell Count 3.04 M/uL (3.86-4.86)
[2024-06-06 23:40] LABS: Absolute Lymphocytes (CBC) 1.1 K/uL (0.7-4.9); Absolute Neutrophil 13.6 K/uL (1.8-8.0); Basophils % 1.3 % (0-1.3); Eosinophils % 0.6 % (0-4.4); Lymphocytes % 6.7 % (15.3-44.8); MCH 23.5 pg (27.0-35.0); MCHC 30.5 g/dL (32.0-36.0); MCV 76.9 fL (80-100); MPV 7.1 fL (7.6-11.3); Monocytes % 6.9 % (3.3-12.3); Neutrophils % 84.5 % (41.7-73.7); Platelets 613 thou/uL (152-406); Red Cell Distribution Width 16.2 % (12.1-15.2)
[2024-06-06 23:41] LABS: Absolute Basophils 0.2 K/uL (0-0.5); Absolute Eosinophils 0.1 K/uL (0-0.5); Absolute Monocytes 1.1 K/uL (0.1-1.3)
[2024-06-06 23:43] LABS: Bilirubin Direct < 0.2 mg/dL (0-0.2); Bilirubin Indirect, Calculated 0.1 mg/dL (0.2-0.8)
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
[2024-06-07 00:50] VITALS: BP 113/70; TEMP 97.7; O2SAT 100
--- NOTE | 2024-06-07 11:53 | RAD REPORT ---
EXAM DESCRIPTION: RAD - Chest Single View - 06/06/2024 10:37 pm CLINICAL HISTORY: 59 years Female, Known lung cancer stage 4, dyspnea. COMPARISON: XR Chest 03/02/2024 (report only). IMPRESSION: Diffuse opacification of the left lung zones.. No mediastinal deviation. No pneumothorax. Cardiomediastinal silhouette is not well seen. No acute osseous abnormality. Electronically signed by: Ari Woody DO 06/07/2024 01:18 AM CDT RP 9 Due to temporary technical issues with the PACS/Fluency reporting system, reports are being signed by the in house radiologist without review as a courtesy to ensure prompt reporting. The interpreting r adiologist is fully responsible for the content of the report.
--- NOTE | 2024-06-08 12:13 | EKG ---
Test Date: 2024-06-06 Test Time: 22:40:02 [employer] Airline Pilot: JUSTICE MEASUREMENT RESULTS: Intervals: Rate: 95 CA: 132 QRSD: 78 QT: 334 QTc: 419 Mercedes: P: 62 CA: 132 QRS: 38 T: 68 INTERPRETIVE STATEMENTS: Normal sinus rhythm Low voltage QRS Borderline ECG Compared to ECG 03/02/2024 17:11:20 No significant changes Electronically Signed On 06-08-24 12:11:02 CDT by Berry Lewis
== END 2024-06-07 00:18 | disposition home or self-care (01) ==
LOC: ER 21:11
DX: R09.02 Hypoxemia (principal); E87.1 Hypo-osmolality and hyponatremia; J44.9 Chronic obstructive pulmonary disease, unspecified; C34.90 Malignant neoplasm of unspecified part of unspecified bronchus or lung
CPT/HCPCS: 36415; 71045; 80048; 80076; 83735; 83880; 84484; 85025; 85610; 93005; 99285